=== PATIENT | female | born 1945 | race Caucasian/White ===

== ENCOUNTER 2017-07-09 05:46 | Day surgery (SDC) | payer MEDICARE, OTHER ==
[2017-07-08 14:53] VITALS: BMI 30.7
[2017-07-09 06:36] LABS: PTT 31.2 SEC (22.9-36.1); Prothrombin Time 13.1 SEC (12.0-14.7)
[2017-07-09] MEDS ORDERED: Lidocaine 1% (PF) 30 ML VIAL ONE (06:36)
[2017-07-09 06:57] LABS: Anion Gap 11 mmol/L (10-20); BUN (Urea Nitrogen) 20 mg/dL (9.8-20.1); Calc. Creatinine Clearance 72 mL/min (70-130); Calcium 9.6 mg/dL (7.8-10.44); Carbon Dioxide 26 mmol/L (23-31); Chloride 106 mmol/L (98-107); Estimated GFR-MDRD 55; Glucose 122 mg/dL (80-115); Sodium 139 mmol/L (136-145)
[2017-07-09 07:07] LABS: Cardiac Risk 4.5 (Less than 4.5)
[2017-07-09] MEDS ORDERED: Verapamil 5 MG/2 ML VIAL ONE (07:07)
[2017-07-09] MEDS ORDERED: Heparin 10,000 UNITS/1 ML VIAL ONE (07:07)
[2017-07-09] MEDS ORDERED: Nitroglycerin 100MG/250ML BOT 250 ML ONE (07:07)
[2017-07-09] MEDS ORDERED: Midazolam HCl 2 mg/2 ml Vial ONE (07:24)
[2017-07-09] MEDS ORDERED: Iopamidol 370 76% 100 ML VIAL ONE (11:05)
--- NOTE | 2017-08-04 11:12 | EKG ---
Test Reason : PREOP Blood Pressure : / mmHG Vent. Rate : 081 BPM Atrial Rate : 081 BPM P-R Int : 148 ms QRS Dur : 082 ms QT Int : 384 ms P-R-T Axes : 036 -02 -07 degrees QTc Int : 446 ms Normal sinus rhythm Moderate voltage criteria for LVH, may be normal variant Nonspecific ST and T wave abnormality Abnormal ECG When compared with ECG of 09-OCT-2016 10:30, No significant change was found Confirmed by JOHN LACEY M.D. ([id number]) on 08/04/2017 11:11:56 AM Referred By: ABHIJIT Confirmed By:JOHN LACEY M.D.
== END 2017-07-09 14:21 | disposition home or self-care (01) ==
LOC: CCL 05:46
PROVIDERS: ATTEND Internal Medicine Cardiovascular Disease
PROC: 4A023N7 Measurement of Cardiac Sampling and Pressure, Left Heart, Percutaneous Approach (ICD-10-PCS; principal; 2017-07-09)
PROC: B2151ZZ Fluoroscopy of Left Heart using Low Osmolar Contrast (ICD-10-PCS; 2017-07-09)
DX: I25.110 Atherosclerotic heart disease of native coronary artery with unstable angina pectoris (principal); E78.00 Pure hypercholesterolemia, unspecified; I10 Essential (primary) hypertension; E11.9 Type 2 diabetes mellitus without complications; E66.9 Obesity, unspecified; Z68.30 Body mass index [BMI] 30.0-30.9, adult; Z79.82 Long term (current) use of aspirin; Z79.02 Long term (current) use of antithrombotics/antiplatelets; Z79.899 Other long term (current) drug therapy; Z88.0 Allergy status to penicillin; Z88.5 Allergy status to narcotic agent
CPT/HCPCS: 80048; 80061; 85610; 85730; 93005; 93458; C1769; 36415; 93010; 99152; 99153; J1644; J2001; J2250

== ENCOUNTER 2017-07-21 11:00 | Outpatient (CLI) | payer MEDICARE ==
--- NOTE | 2017-07-21 11:56 | RAD ---
LUMBAR SPINE 2 VIEWS: HISTORY: A 72-year-old female with a history of low back pain since June 18, 2017. FINDINGS: AP and lateral views of the lumbar spine are performed. There are some generalized degenerative disk changes with disk-osteophytosis as well as some facet arthrosis. Surgical clips in the right upper quadrant, evidence of prior cholecystectomy. No evidence for acute fracture or significant malalignm ent. IMPRESSION: Lumbar spondylosis throughout the lumbar spine. POS: DEON
== END 2017-07-21 11:01 | disposition home or self-care (01) ==
LOC: SCSRAD 11:00
PROVIDERS: ATTEND Psychiatry & Neurology Neurology
DX: M54.12 Radiculopathy, cervical region (principal); M47.896 Other spondylosis, lumbar region
CPT/HCPCS: 72100

== ENCOUNTER 2018-09-04 16:09 | Outpatient (CLI) | payer MEDICARE, OTHER ==
[~2018-09-04 16:09] MED LIST: Gadobenate Dimeglumine 529 MG/1 ML (20ML VIAL) ONE
--- NOTE | 2018-09-07 11:13 | MRI ---
Pre and postcontrast enhanced MRI images brain HISTORY: Nausea blurred vision previous history of right-sided meningioma resection in 2000. Comparison made to previous exam from 09/09/2013. Pre and postcontrast enhanced MRI images brain performed. Patient's had a previous right-sided pterional craniotomy. Right temporal lobe encephalomalacia changes seen. Additional areas of right frontal and temporal lob e gliotic changes seen. These are stable and unchanged. No abnormal areas of intracranial enhancement seen. No evidence of areas of diffusion restriction seen. MRI appearance is stable. IMPRESSION: Previous old surgical changes. No evidence of tumor recurrence or newly developed masses seen.
== END 2018-09-04 16:10 | disposition home or self-care (01) ==
LOC: SCSMRI 16:09
PROVIDERS: ATTEND Family Medicine
DX: R51 Headache (principal)
CPT/HCPCS: 70553; 82565

== ENCOUNTER 2018-12-28 09:28 | Outpatient (CLI) | payer MEDICARE, OTHER ==
--- NOTE | 2018-12-28 09:44 | RAD ---
EXAM: Chest 2 views: HISTORY: Dyspnea COMPARISON: None. FINDINGS: There is a normal-sized cardiomediastinal silhouette. There is no evidence of consolidation, mass, or pleural effusion. Hardware is seen in the left humerus. IMPRESSION: No evidence of acute cardiopulmonary disease
== END 2018-12-28 09:29 | disposition home or self-care (01) ==
LOC: RAD 09:28
PROVIDERS: ATTEND Internal Medicine Critical Care Medicine
DX: R06.00 Dyspnea, unspecified (principal)
CPT/HCPCS: 71046

== ENCOUNTER 2019-03-22 11:25 | Observation (INO) | payer MEDICARE, OTHER ==
[2019-03-22 12:02] LABS: #Basophils 0.1 thou/uL (0.0-0.2); #Eosinphils 0.3 thou/uL (0.0-0.7); #Lymphocytes 2.5 thou/uL (1.20-3.40); #Monocytes 0.9 thou/uL (0.11-0.59); #Neutrophils 5.8 thou/uL (1.40-6.50); %Basophils 0.9 % (0.0-1.0); %Eosinophils 2.9 % (0.0-10.0); %Lymphocytes 26.6 % (21.0-51.0); %Monocytes 9.3 % (0.0-10.0); %Neutrophils 60.4 % (42.0-75.0); Hemoglobin 12.7 g/dL (12.0-16.0); Mean Corpuscular HGB CONC 33.8 g/dL (32.0-36.0); Mean Corpuscular Hemoglobin 31.3 pg (27.0-31.0); Mean Corpuscular Volume 92.7 fL (78.0-98.0); Platelet Count 354 thou/uL (130-400); RBC Distribution Width 13.7 % (11.5-14.5); Red Blood Cell (RBC) Count 4.06 mill/uL (4.20-5.40); White Blood Cell (WBC) Count 9.5 thou/uL (4.8-10.8)
--- NOTE | 2019-03-22 12:16 | RAD ---
Chest AP view INDICATION: Chest pain COMPARISON: December 28, 2018 FINDINGS: Lungs:The lungs are clear Cardiac silhouette:Stable cardiomegaly Pulmonary vasculature:Normal Pleural spaces:No pleural effusion or pneumothorax is demonstrated. Upper abdomen:No abnormality seen. Osseous structures: There is partial visualization of a plate and screw construct fixating the proxim al left humerus. This was partially visualized on the comparison examination. No acute osseous abnormality is demonstrated. Additional findings:None. IMPRESSION: No acute cardiopulmonary abnormality. Stable cardiomegaly.
[2019-03-22] MEDS ORDERED: Nitroglycerin 2% Ointment 1 INCH/1 GM Packet ONE (12:17)
[2019-03-22] MEDS ORDERED: Aspirin Chewable 81 MG TAB ONE (12:17)
[2019-03-22 12:37] LABS: ALT (SGPT) 14 U/L (8-55); AST (SGOT) 15 U/L (5-34); Albumin 4.3 g/dL (3.4-4.8); Alkaline Phosphatase 122 U/L (40-110); Anion Gap 13 mmol/L (10-20); BUN (Urea Nitrogen) 22 mg/dL (9.8-20.1); Bilirubin, Total 0.4 mg/dL (0.2-1.2); CK (CPK) 41 U/L (29-168); Calc. Creatinine Clearance 0 mL/min (70-130); Calcium 9.4 mg/dL (7.8-10.44); Carbon Dioxide 25 mmol/L (23-31); Chloride 106 mmol/L (98-107); Estimated GFR-MDRD 59; Globulin 2.3 g/dL (2.4-3.5); Glucose 133 mg/dL (83-110); Lipase 24 U/L (8-78); Potassium 3.9 mmol/L (3.5-5.1); Protein, Total 6.6 g/dL (6.0-8.3); Sodium 140 mmol/L (136-145)
[2019-03-22] MEDS ORDERED: Nitroglycerin 2% Ointment 1 INCH/1 GM Packet TOP PRN (13:00)
[2019-03-22 15:34] LABS: Troponin I Less than 0.010 ng/mL (< 0.028)
[2019-03-22] MEDS ORDERED: Acetaminophen 650 MG Suppository PR PRN (16:00)
[2019-03-22] MEDS ORDERED: Dextrose 50% Abboject 50 ML SYRINGE SLOW IVP PRN (16:05)
[2019-03-22] MEDS ORDERED: Dextrose 5% in Water 1,000 ML IV PRN (16:05)
[2019-03-22] MEDS ORDERED: HumaLOG 300 UNITS/3 ML VIAL SC PRN ×3 (16:05→16:12)
--- NOTE | 2019-03-22 17:01 | HP ---
TIME OF ASSESSMENT: 1500 hours. CHIEF COMPLAINT: Chest pain. HISTORY OF PRESENT ILLNESS: Ms. Joyner is a very pleasant 74-year-old woman with a known history of coronary artery disease, who has had an AZ in the past with 2 stents placed. The patient also has a history of hypertension and diabetes mellitus. She is under the care of Dr. Starr and states that she recently underwent a stress test in the last 2 to 3 months, which she was told that it was abnormal. She states that Dr. Starr did not recommend catheterization as he felt that her complaints were GI related. The patient underwent an endoscopy by Dr. Gavin recently and was told she had a hiatal hernia as well as gastritis. There was concern for gastroparesis. Therefore, a gastric emptying study was scheduled for later this week. The patient states that the pain she experienced this morning was very different from any pain she has had in the past and different from the pain she had with her previous AZ. She reports having a busy morning washing and cutting her hair. At approximately 9 a.m., she sat on the kitchen to check her glucose prior to eating and it was elevated at 146. She noted a stabbing substernal pain. She states she had six more episodes of stabbing pain a couple of minutes apart, each one getting progressively worse in terms of severity. She states it was 10/10 that then prompted her to come into the emergency department. She reports taking nitroglycerin at home, which immediately relieved her pain. She did have recurring pain while she was waiting to be seen. She has now been pain-free for the last 2 hours. In the emergency department, she had an EKG done, which showed a heart rate of 85, normal sinus rhythm with nonspecific ST changes and T-wave changes. Apparently, it had findings consistent with left ventricular hypertrophy. A chest x-ray was done showing no acute cardiopulmonary abnormality. She was noted to have stable cardiomegaly. Laboratory studies done showed normal full blood count. She had a slightly elevated BUN of 22, creatinine of 0.94, and GFR of 59. LFTs unremarkable and lipase normal. CK was 41. Troponin negative x2 and BNP normal at 50.8. She was given 243 mg of aspirin and 1 inch of nitroglycerin paste. In retrospect, the patient recalls having some issues with her blood pressure over the weekend, which was 180/100s. She thought that she might require adjustment in her antihypertensives and therefore made an appointment with her primary care physician. Today, her blood pressure has been within the usual range. At this present time, she denies having any pain and feels well in herself back to baseline. REVIEW OF SYSTEMS: The patient denies having any associated nausea or vomiting. No shortness of breath. Denies having any cough or hemoptysis, but states that she has had some slight postnasal drip of green phlegm. Denies having any recent fevers, chills, or sweats. She states her pain was nonradiating. She denies any lower leg swelling or edema. No indigestion. No abdominal pain. She reports having normal bowel movements and no urinary symptoms. PAST MEDICAL HISTORY: 1. Hypertension. 2. Coronary artery disease. 3. GERD. 4. Type 2 diabetes mellitus. 5. Asthma. 6. History of kidney stones. 7. Peripheral vascular disease. PAST SURGICAL HISTORY: 1. Appendectomy. 2. Cholecystectomy. 3. Craniotomy. 4. Hysterectomy. 5. Oophorectomy. 6. Bilateral knee surgery. 7. Tonsillectomy. 8. Coronary artery stents x2. SOCIAL HISTORY: The patient lives with her . Denies any history of tobacco use. No alcohol consumption or illicit drug use. ALLERGIES: 1. AUDIE INHIBITORS. 2. FENTANYL. 3. MORPHINE. CURRENT MEDICATIONS: 1. Gabapentin. 2. Metformin. 3. Bystolic. 4. Zetia. 5. Aspirin. 6. Singulair. 7. Losartan. 8. Protonix. 9. Synthroid. 10. Symbicort. 11. Albuterol. PHYSICAL EXAMINATION: GENERAL: The patient appears well developed, well nourished, is in no acute distress. VITAL SIGNS: Temperature 98.6, pulse 64, blood pressure 143/74, respirations 17, O2 saturation 94% on room air. HEENT: Normocephalic and atraumatic. Pupils are equal, round, and reactive to light. Sclerae are without icterus. Oropharynx is clear. NECK: Supple without lymphadenopathy. LUNGS: Clear to auscultation bilaterally without any wheezes, rales, or rhonchi. CARDIAC: Regular rate and rhythm without audible murmurs, rubs, or gallops. No reproducible pain with palpation of the chest wall. ABDOMEN: Soft, nontender, and nondistended. Normoactive bowel sounds present. EXTREMITIES: No lower leg swelling or edema. Peripheral pulses are normal. SKIN: Warm and dry. NEUROLOGIC: Alert and oriented x3. No neuro deficits on exam. INVESTIGATIONS: As mentioned above in HPI. IMPRESSION AND PLAN: Ms. Joyner is a pleasant 74-year-old woman, who is being admitted for management of the followin. Acute coronary syndrome rule out. The patient with central stabbing chest pain started at 9 a.m., relieved immediately once she took nitroglycerin. Per the patient, she had a recent abnormal stress test. She states that she has had an echocardiogram recently, but the last one follows from 2014, at which time she had an ejection fraction of 60% to 65% with normal systolic function. There was grade 1/3 diastolic dysfunction and mild left atrial enlargement, moderate mitral regurgitation and mild tricuspid regurgitation. Consultation has been placed to Dr. Starr, which the patient is requested. Apparently, she was told a catheterization was not necessary as it was felt her pain was related to gastrointestinal issues. We will continue to trend troponin. We will add a magnesium and a lipid panel. 2. Hypertension. Monitor blood pressure and resume home medications once verified. 3. Diabetes mellitus. Monitor blood glucose and initiate insulin sliding scale. 4. Hyperlipidemia. Resume home medications once verified. 5. Gastroesophageal reflux disease. Resume home medications once verified. 6. Deep venous thrombosis prophylaxis with mechanical sequential compression devices. 7. Code status, full. Her surrogate decision maker is her , Mehrdad Joyner. The patient's case was discussed with Dr. Scales, who agrees with plan of care as described above. Job ID: [id number]
[2019-03-22 17:19] VITALS: BMI 30.7
[2019-03-22 17:48] LABS: Bacteria/HPF None Seen HPF (None Seen); Bilirubin Negative (Negative); Blood, Urine Negative (Negative); Clarity Clear (Clear); Glucose, Urine (Dipstick) Normal (Negative); Leukocyte Negative Leu/uL (Negative); Nitrite Negative (Negative); Protein, Urine (Dipstick) Negative (Neg-Trace); RBC/HPF 0-3 HPF (0-3); Squamous Epithelial 0-3 HPF (0-3); Urobilinogen Normal mg/dL (Less than 2); WBC/HPF 0-3 HPF (0-3)
[2019-03-22 17:49] LABS: Urine Culture Reflex No No
[2019-03-22 18:18] LABS: Troponin I Less than 0.010 ng/mL (< 0.028)
[2019-03-22] MEDS ORDERED: Montelukast Sodium 10 mg Tablet PO PRN (20:01)
[2019-03-22] MEDS: Nebivolol HCl 5 MG TAB PO SCH (20:47)
[2019-03-22] MEDS: Gabapentin 300 MG CAP PO SCH (20:47)
[2019-03-22] MEDS ORDERED: Losartan 25 MG TAB PO SCH (21:00)
[2019-03-22] MEDS ORDERED: Famotidine/PF 20 mg/2ml Vial SLOW IVP SCH (21:00)
[2019-03-22] MEDS: Sodium Chloride 0.9% 1,000 ML IV SCH (23:15)
[2019-03-23] MEDS: Levothyroxine Sodium 50 MCG TAB PO SCH (04:46)
[2019-03-23 04:53] LABS: #Basophils 0.1 thou/uL (0.0-0.2); #Eosinphils 0.4 thou/uL (0.0-0.7); #Lymphocytes 2.5 thou/uL (1.20-3.40); #Monocytes 1.2 thou/uL (0.11-0.59); #Neutrophils 5.8 thou/uL (1.40-6.50); %Basophils 0.6 % (0.0-1.0); %Eosinophils 3.9 % (0.0-10.0); %Lymphocytes 25.1 % (21.0-51.0); %Neutrophils 58.4 % (42.0-75.0); Hemoglobin 10.5 g/dL (12.0-16.0); Mean Corpuscular HGB CONC 33.9 g/dL (32.0-36.0); Mean Corpuscular Hemoglobin 31.4 pg (27.0-31.0); Mean Corpuscular Volume 92.4 fL (78.0-98.0); Mean Platelet Volume 8.1 fL (7.4-10.4); Platelet Count 312 thou/uL (130-400); RBC Distribution Width 13.8 % (11.5-14.5); Red Blood Cell (RBC) Count 3.35 mill/uL (4.20-5.40); White Blood Cell (WBC) Count 9.9 thou/uL (4.8-10.8)
[2019-03-23 05:15] LABS: Anion Gap 8 mmol/L (10-20); BUN (Urea Nitrogen) 18 mg/dL (9.8-20.1); Calc. Creatinine Clearance 86 mL/min (70-130); Calcium 8.8 mg/dL (7.8-10.44); Carbon Dioxide 29 mmol/L (23-31); Cardiac Risk 4.7 (Less than 4.5); Chloride 108 mmol/L (98-107); Cholesterol 164 mg/dl (< 200 Desired); Estimated GFR-MDRD 70; Glucose 109 mg/dL (83-110); HDL Cholesterol 35 mg/dL (>60 Neg Risk); LDL Cholesterol, Calculated 99 mg/dL; Potassium 4.2 mmol/L (3.5-5.1); Sodium 141 mmol/L (136-145); Triglycerides 148 mg/dL (Less than 150)
[2019-03-23] MEDS: Sodium Chloride 0.9% 1,000 ML IV SCH (09:15)
[2019-03-23] MEDS ORDERED: Iopamidol 370 76% 100 ML VIAL ONE (09:47)
[2019-03-23] MEDS: Acetaminophen 325 MG TAB PO PRN (10:21)
[2019-03-23] MEDS: Ezetimibe 10 MG TAB PO SCH (10:24)
[2019-03-23] MEDS ORDERED: Losartan 25 MG TAB PO SCH (10:45)
[2019-03-23] MEDS ORDERED: Nitroglycerin 2% Ointment 1 INCH/1 GM Packet TOP SCH (10:45)
--- NOTE | 2019-03-23 13:41 | PDOC.HOSPP ---
- Subjective Subjective: Pt reports that she is feeling better than she did this morning. Denies currently having any chest pain. NPO and receiving IVF at 100 mL/hr in preparation for cardiac catheterization this afternoon. - Objective Vital Signs & Weight: Vital Signs (12 hours) Temp Pulse Resp BP Pulse Ox 03/23/19 13:00 98.2 F 62 15 155/74 H 96 03/23/19 12:00 98.6 F 62 18 97 03/23/19 08:00 98.3 F 69 18 151/70 H 95 03/23/19 04:28 97.8 F 68 14 101/53 L 93 L Weight Weight 190 lb 3.2 oz I&O: 03/22/19 03/23/19 03/24/19 06:59 06:59 06:59 Intake Total 1470 340 Output Total 1000 Balance 470 340 Result Diagrams: 03/23/19 04:29 03/23/19 04:29 Additional Labs: Accuchecks 03/23/19 03/22/19 03/22/19 11:40 19:49 18:50 POC Glucose 110 125 H 94 Hospitalist ROS - Medication Medications: Active Medications Generic Name Dose Route Start Last Admin Trade Name Freq PRN Reason Stop Dose Admin Acetaminophen 650 mg 03/22/19 16:00 03/23/19 10:21 Tylenol PO 650 mg Q4H PRN Administration Headache/Fever/Mild Pain (1-3) Ezetimibe 10 mg 03/23/19 09:00 03/23/19 10:24 Zetia PO Not Given DAILY WOOD Gabapentin 600 mg 03/22/19 21:00 03/22/19 20:47 Neurontin PO 600 mg HS WOOD Administration Sodium Chloride 1,000 mls @ 100 mls/hr 03/23/19 00:01 03/23/19 09:15 Normal Saline 0.9% IV 1,000 mls .Q10H WOOD Administration Levothyroxine Sodium 50 mcg 03/23/19 06:00 03/23/19 04:46 Synthroid PO 50 mcg 0600 WOOD Administration Nebivolol 5 mg 03/22/19 21:00 03/22/19 20:47 Bystolic PO 5 mg HS WOOD Administration Pantoprazole Sodium 40 mg 03/22/19 21:00 03/23/19 10:25 Protonix PO Not Given BID WODO Ranolazine 500 mg 03/22/19 21:00 03/23/19 10:26 Ranexa PO 500 mg BID WOOD Administration - Exam General Appearance: NAD, awake alert Heart: RRR, no murmur, no gallops, no rubs Respiratory: CTAB, no wheezes, no rales, no ronchi, normal chest expansion, no tachypnea Gastrointestinal: soft, non-tender, non-distended, normal bowel sounds, no palpable masses, no hepatomegaly, no splenomegaly, no bruit Extremities: no cyanosis, no clubbing Extremities - other findings: trace lower extremity edema Skin: normal turgor, no lesions, no rashes Musculoskeletal: normal tone Psychiatric: normal affect, normal behavior, A&O x 3 Hosp A/P (1) Chest pain Code(s): R07.9 - CHEST PAIN, UNSPECIFIED Status: Acute (2) GERD (gastroesophageal reflux disease) Code(s): K21.9 - GASTRO-ESOPHAGEAL REFLUX DISEASE WITHOUT ESOPHAGITIS Status: Acute (3) CAD (coronary artery disease) Code(s): I25.10 - ATHSCL HEART DISEASE OF [place] CORONARY ARTERY W/O ANG PCTRS Status: Chronic Qualifiers: Coronary Disease-Associated Artery/Lesion type: [place] artery Habematolel vs. transplanted heart: [place] heart Associated angina: without angina Qualified Code(s): I25.10 - Atherosclerotic heart disease of [place] coronary artery without angina pectoris (4) HLD (hyperlipidemia) Code(s): E78.5 - HYPERLIPIDEMIA, UNSPECIFIED Status: Chronic Qualifiers: Hyperlipidemia type: unspecified Qualified Code(s): E78.5 - Hyperlipidemia , unspecified (5) HTN (hypertension) Code(s): I10 - ESSENTIAL (PRIMARY) HYPERTENSION Status: Chronic Qualifiers: Hypertension type: essential hypertension Qualified Code(s): I10 - Essential (primary) hypertension (6) Hypothyroidism Code(s): E03.9 - HYPOTHYROIDISM, UNSPECIFIED Status: Chronic Qualifiers: Hypothyroidism type: unspecified Qualified Code(s): E03.9 - Hypothyroidism , unspecified - Plan Chest pain: Pt to undergo cardiac catheterization later today. Receiving hydration with IVF at 100 mL/hr in preparation for dye load. Will monitor renal function with AM labs. HTN: Continue home losartan and bystolic. She has requested nitropaste and does not want SLNTG. Believes her CP has increased when BP increased. Continue home thyroid meds. Continue Zetia.
[2019-03-23] MEDS ORDERED: Heparin (Artline) 1,000 ML ONE (14:32)
[2019-03-23] MEDS ORDERED: Fentanyl 100 MCG/2 ML VIAL ONE (14:58)
[2019-03-23] MEDS ORDERED: Midazolam HCl 2 mg/2 ml Vial ONE (14:59)
[2019-03-23] MEDS ORDERED: Heparin 10,000 UNITS/1 ML VIAL ONE (15:51)
[2019-03-23] MEDS ORDERED: Heparin (Artline) 500 ML ONE (15:54)
[2019-03-23] MEDS ORDERED: Clopidogrel Bisulfate 300 MG TAB ONE (15:54)
[2019-03-23] MEDS ORDERED: Nitroglycerin 0.4 MG TAB (25 Tab Bottle) SL PRN (16:09)
[2019-03-23] MEDS ORDERED: Sodium Chloride 0.9% 500 ML IV SCH (16:15)
--- NOTE | 2019-03-23 17:02 | CON ---
DATE OF CONSULTATION: 03/23/2019 REASON FOR CONSULTATION: Chest pain. PRIMARY LOGGING ASSISTANT: Dr. Eusebio Starr. HISTORY OF PRESENT ILLNESS: Ms. Joyner is a very pleasant 74-year-old white female, who comes to the hospital for chest pain. She has had several stents placed in the past, mostly in her LAD and first diagonal in a bifurcating fashion. She had to be recath'd several times because of same reason. Last time was about a year and a half ago, she had chest pain. The only problem was severely stenosed ostial diagonal; however, she was treated medically at that time as this has already been re-ballooned and re-stented. She is here as she continues to have chest pain despite treatment of her GI tract, so Cardiology has been consulted for further evaluation and care. Ms. Joyner continues to feel chest pain, which is basically her angina when she does physical activity. Better with rest, better with nitroglycerin. PAST MEDICAL HISTORY: 1. Hypertension. 2. Coronary artery disease. 3. GERD. 4. Type-2 diabetes. 5. Asthma. 6. Kidney stones in the past. 7. Peripheral vascular disease. PAST SURGICAL HISTORY: 1. Appendectomy. 2. Cholecystectomy. 3. Craniotomy. 4. Hysterectomy. 5. Oophorectomy. 6. Bilateral knee surgeries. 7. Tonsillectomy. 8. Stents in the past as well. SOCIAL HISTORY: No alcohol, tobacco, or drugs. ALLERGIES: 1. AUDIE INHIBITORS. 2. FENTANYL MADE HER STOP BREATHING AND CODING. THIS WAS IN THE POSTOPERATIVE SETTING AND SHE RECEIVED VERY HIGH DOSES OF FENTANYL NOT A REAL ALLERGY. 3. MORPHINE. 4. ADVERSE REACTION TO STATINS. OUTPATIENT MEDICATIONS: Include; 1. Sublingual nitroglycerin 0.6 p.r.n. 2. Ranolazine 500 mg b.i.d. 3. Singulair. 4. Synthroid 50 mcg a day. 5. Pantoprazole 40 mg b.i.d. 6. Losartan 25 mg at bedtime. 7. Zetia 10 mg a day. 8. Aspirin 81 a day. 9. . 10. Gabapentin 600 mg at bedtime. REVIEW OF SYSTEMS: A 12-point review of systems was done and was all negative unless stated in the history of present illness. FAMILY HISTORY: Noncontributory. PHYSICAL EXAMINATION: VITAL SIGNS: Temperature 98.2, pulse 62, respiratory rate 15, saturating 96% on room air, blood pressure 155/74. GENERAL: Awake, alert, oriented x3. No distress. HEENT: Normocephalic, atraumatic. NECK: Supple. LUNGS: Clear. CARDIOVASCULAR: S1, S2. No S3 or S4. No murmurs. ABDOMEN: Soft. Positive bowel sounds. EXTREMITIES: No edema. SKIN: Warm and dry. LABORATORY DATA: Laboratory work was reviewed. Troponins are negative. CBC and CMP are stable. ASSESSMENT AND PLAN: 1. Chronic stable angina, worsening now. 2. Coronary artery disease. 3. Gastroesophageal reflux disease. PLAN: 1. We will do a repeat heart catheterization for re-evaluation of her coronary anatomy. More than likely she has failed medical therapy and will need balloon angioplasty or stenting of that ostial diagonal. We will also evaluate the LAD. If her LAD is severely stenosed, we will recommend bypass surgery with LOGAN to the LAD and vein graft to diagonal. If the LAD is not severely stenosed, we will try to just do balloon angioplasty of the ostium of the diagonal, which was the issue just last time she was cathed. 2. We have spoken at length with risks and benefits of the procedure. She has been through several times. She had minimal questions. She is eager to proceed. Thank you for letting us to participate in the care of your patient. Further recommendations per results of cardiac catheterization. Job ID: [id number] MTDD
[2019-03-23] MEDS ORDERED: hydrALAZINE 20 MG/ML VIAL SLOW IVP PRN (17:45)
[2019-03-23] MEDS ORDERED: Ondansetron PF 4 MG/2 ML Vial ONE (18:09)
[2019-03-23] MEDS ORDERED: Ondansetron PF 4 MG/2 ML Vial SLOW IVP SCH (20:15)
[2019-03-23] MEDS: Nebivolol HCl 5 MG TAB PO SCH (21:04)
[2019-03-23] MEDS: Gabapentin 300 MG CAP PO SCH (21:04)
[2019-03-24 04:25] LABS: #Basophils 0.1 thou/uL (0.0-0.2); #Eosinphils 0.3 thou/uL (0.0-0.7); #Lymphocytes 1.7 thou/uL (1.20-3.40); %Eosinophils 3.3 % (0.0-10.0); %Lymphocytes 18.3 % (21.0-51.0); %Neutrophils 66.4 % (42.0-75.0); Mean Corpuscular Hemoglobin 29.6 pg (27.0-31.0); Mean Corpuscular Volume 92.5 fL (78.0-98.0); Mean Platelet Volume 8.1 fL (7.4-10.4); Platelet Count 334 thou/uL (130-400); RBC Distribution Width 13.8 % (11.5-14.5); Red Blood Cell (RBC) Count 3.71 mill/uL (4.20-5.40)
[2019-03-24 04:45] LABS: ALT (SGPT) 11 U/L (8-55); AST (SGOT) 14 U/L (5-34); Albumin 3.6 g/dL (3.4-4.8); Alkaline Phosphatase 111 U/L (40-110); Anion Gap 9 mmol/L (10-20); BUN (Urea Nitrogen) 16 mg/dL (9.8-20.1); Bilirubin, Total 0.3 mg/dL (0.2-1.2); Calc. Creatinine Clearance 79 mL/min (70-130); Calcium 8.9 mg/dL (7.8-10.44); Carbon Dioxide 29 mmol/L (23-31); Chloride 107 mmol/L (98-107); Estimated GFR-MDRD 63; Globulin 2.4 g/dL (2.4-3.5); Glucose 127 mg/dL (83-110); Potassium 3.8 mmol/L (3.5-5.1); Sodium 141 mmol/L (136-145)
[2019-03-24] MEDS: Levothyroxine Sodium 50 MCG TAB PO SCH (05:29)
[2019-03-24] MEDS: Ezetimibe 10 MG TAB PO SCH (08:11)
[2019-03-24] MEDS ORDERED: Losartan 25 MG TAB PO SCH (09:00)
[2019-03-24] MEDS ORDERED: Aspirin Chewable 81 MG TAB PO SCH (09:00)
[2019-03-24] MEDS ORDERED: Clopidogrel Bisulfate 75 MG TAB PO SCH (09:00)
[2019-03-24] MEDS: Acetaminophen 325 MG TAB PO PRN (12:19)
[2019-03-24 12:49] VITALS: TEMP 98.1
[2019-03-24 13:25] VITALS: BP 120/59
[2019-03-24] MEDS ORDERED: Ondansetron PF 4 MG/2 ML Vial SLOW IVP PRN (13:35)
--- NOTE | 2019-03-24 16:01 | PDOC.CPN ---
- Subjective Date: 03/24/19 Time: 12:30 Interval history: her chest pain is significantly improved. She has been able to walk around without symptoms. - Review of Systems General: denies: fever/chills, weight/appetite/sleep changes, night sweats, fatigue Respiratory: denies: cough, congestion, shortness of breath, exercise intolerance Cardiovascular: denies: chest pain, palpitation, edema, paroxysmal nocturnal dyspnea, orthopnea Gastrointestinal: denies: nausea, vomiting, diarrhea, constipation, abd pain, GI bleeding Musculoskeletal: denies: pain, tenderness, stiffness, swelling, arthritis/ arthralgias Neurological: denies: numbness, syncope, seizure, weakness - Objective Allergies/Adverse Reactions: Allergies Allergy/AdvReac Type Severity Reaction Status Date / Time morphine Allergy Intermediate ITCHING Verified 03/22/19 17:09 AUDIE Inhibitors Allergy COUGH Verified 03/22/19 17:09 fentanyl AdvReac Severe GIVEN A Verified 03/22/19 17:09 HIGH DOSE AND HEART STOPPPED Vital Signs & Weight: Vital Signs Temp Pulse Pulse Pulse Resp BP BP 03/24/19 13:00 70 120/59 L 03/24/19 12:20 75 16 126/57 L 03/24/19 11:47 98.1 F 74 16 03/24/19 10:50 75 76 100/55 L 03/24/19 07:48 98.0 F 61 16 03/24/19 04:00 97.7 F 75 20 BP BP Pulse Ox Pulse Ox Pulse Ox 03/24/19 13:00 03/24/19 12:20 94 L 03/24/19 11:47 126/60 92 L 03/24/19 10:50 120/59 L 92 L 96 03/24/19 07:48 124/63 96 03/24/19 04:00 121/63 97 Admit Weight 190 lb 3.2 oz Weight 190 lb 3.2 oz - Physical Exam General: alert & oriented x3 HEENT: mucus membranes moist Neck: supple neck Cardiac: regular rate and rhythm Lungs: clear to auscultation Neuro: grossly intact Abdomen: active bowel sounds Extremities: no edema Skin: clear Musculoskeletal: no pain - Labs Result Diagrams: 03/24/19 04:12 03/24/19 04:12 Troponin/CKMB Troponin I Less than 0.010 ng/mL (< 0.028) 03/22/19 17:47 - Telemetry Sinus rhythms and dysrhythmias: sinus rhythm - Assessment/Plan Assessment/Plan: 1. Chronic stable angina 2. CAD 3. S/P balloon angioplasty to large ostial D1 with good results. PLAN; - May discharge home - Plavix/ASA - Intolerant to statins. Will do lipid profile in 1 month and if LDL not at goal will add Repatha/Praluent. - Follow up in one month.
--- NOTE | 2019-03-25 12:45 | DIS ---
DATE OF ADMISSION: 03/22/2019 DATE OF DISCHARGE: 03/24/2019 DISCHARGE DIAGNOSES: 1. Angina. 2. Coronary artery disease. 3. Hypertension. 4. Hyperlipidemia. 5. Hypothyroidism. 6. Gastroesophageal reflux disease. HISTORY OF PRESENT ILLNESS: This patient is a 74-year-old female, who presented to the hospital with chest pain. She apparently had had a recent abnormal stress test. EKG showed a heart rate of 85, normal sinus rhythm with nonspecific ST and T-wave changes. Troponin was negative x2. BNP was normal. HOSPITAL COURSE: The patient was placed in observation status. Given her history of abnormal stress test, she was seen in consultations straight away by Dr. Starr, who felt she wanted heart catheterization. The patient was hydrated to tolerate the subsequent dye load. He then took the patient to the distillery laborer, where she was found to have coronary disease. He angioplastied a large ostial D1 with good results. The patient subsequently did well. She was able to get up and ambulate, and all of her pain symptoms had fully resolved. Therefore, she was felt to be in stable condition for discharge home. PHYSICAL EXAMINATION: VITAL SIGNS: On the day of discharge, temperature is 98.1, pulse 70, BP is 120/59, respirations 16, and O2 saturation 94% on room air. GENERAL APPEARANCE: Age-appropriate female, in no distress. Awake, alert, oriented, pleasant, cooperative. HEART: Regular rate and rhythm without murmurs, gallops, or rubs. LUNGS: Clear to auscultation bilaterally. ABDOMEN: Soft, nontender, and nondistended. Positive bowel sounds. EXTREMITIES: No edema. DISPOSITION: The patient is discharged to home. DIET: She is to continue with a heart healthy diet. ACTIVITY: As tolerated. DISCHARGE MEDICATIONS: She will be on: 1. Aspirin 81 mg p.o. daily. 2. Plavix 75 mg daily. 3. Levothyroxine 50 mcg daily. 4. Bystolic 5 mg at bedtime. 5. Pantoprazole 40 mg b.i.d. 6. Zetia 10 mg daily. 7. Gabapentin 600 mg at bedtime. 8. Losartan 25 mg at bedtime. 9. Nitroglycerin p.r.n. 10. Ranexa 500 mg b.i.d. 11. Singulair 10 mg daily p.r.n. FOLLOWUP: She is to follow up with [facility]. She is to follow up with Dr. Starr and with the PCP of her choice. She can return to the hospital at anytime should she have any need to do so. Job ID: [id number]
== END 2019-03-24 15:17 | disposition home or self-care (01) ==
LOC: ERS 11:25 → ERHOLD 13:16 → 2SW 17:03
PROVIDERS: ADMIT Internal Medicine; ATTEND Internal Medicine
PROC: 02703ZZ Dilation of Coronary Artery, One Artery, Percutaneous Approach (ICD-10-PCS; principal; 2019-03-23)
PROC: 4A023N7 Measurement of Cardiac Sampling and Pressure, Left Heart, Percutaneous Approach (ICD-10-PCS; 2019-03-23)
PROC: B2111ZZ Fluoroscopy of Multiple Coronary Arteries using Low Osmolar Contrast (ICD-10-PCS; 2019-03-23)
DX: I25.118 Atherosclerotic heart disease of native coronary artery with other forms of angina pectoris (principal); I25.2 Old myocardial infarction; I10 Essential (primary) hypertension; E11.9 Type 2 diabetes mellitus without complications; K21.9 Gastro-esophageal reflux disease without esophagitis; J45.909 Unspecified asthma, uncomplicated; E78.5 Hyperlipidemia, unspecified; E03.9 Hypothyroidism, unspecified; Z79.82 Long term (current) use of aspirin; Z79.899 Other long term (current) drug therapy; Z88.5 Allergy status to narcotic agent; Z88.8 Allergy status to other drugs, medicaments and biological substances
CPT/HCPCS: 71045; 80048; 80053 ×2; 80061; 81001; 82550; 82962 ×3; 83690; 83735; 83880; 84484 ×2; 85025 ×3; 85347 ×3; 92920; 93005 ×3; 93458; 93571; 93798; 94760; 96361 ×2; 96374; 96376; 97139; 99285; C1769 ×6; G0378 ×3; 36415; 36416; 93010; 99152; 99153; J0153; J1644; J2250; J2405; J3010; Q9967

== ENCOUNTER 2019-11-24 13:20 | Inpatient (IN) | payer MEDICARE, OTHER ==
[2019-11-24] MEDS ORDERED: Dextrose 50% Abboject 50 ML SYRINGE SLOW IVP PRN (20:12)
[2019-11-24] MEDS ORDERED: Dextrose 5% in Water 1,000 ML IV PRN (20:12)
[2019-11-24] MEDS ORDERED: Insulin Regular 300 UNITS/3 ML VIAL SC PRN (20:12)
[2019-11-24] MEDS ORDERED: Metoprolol Tartrate 5 MG/5 ML VIAL IVP PRN (20:14)
[2019-11-24] MEDS ORDERED: Nitroglycerin 0.4mg/Hour PATCH TD SCH (21:00)
[2019-11-24 21:31] LABS: Troponin I Less than 0.010 ng/mL (< 0.028)
--- NOTE | 2019-11-24 21:31 | HP ---
REASON FOR ADMISSION: Chest pain. HISTORY OF PRESENT ILLNESS: This is a 74-year-old female patient who is known to have coronary artery disease status post stenting in March 2019, has been doing well since then until September of this year she started having chest pain initially with exertion that progressed to occurring at rest. She describes the pain as sharp in nature, localized in the retrosternal area with radiation to her upper extremities and jaw. The quality of the pain is different than her previous chest pain before March. She also has shortness of breath and becomes flushed whenever she has the pain. The pain is relieved with nitroglycerin, but then recurs and sometimes she has a second episode back to the first one after the effect of the nitroglycerin wears off. She has been having the pain early in the morning and this morning at 1:30 a.m., she had an episode and another one at 9:00 a.m., which prompted her to go to [facility], subsequently transferred to us. The patient is currently on our telemetry floor, appears to be comfortable, in no acute distress. I did review her records and during her last admission, she had an abnormal stress test and subsequently underwent a cardiac catheterization with angioplasty to a large ostial D1 and has been recently started on Ranexa and dose has been adjusted and titrated up to her chest pain. PAST MEDICAL HISTORY: 1. Diabetes, type 2. 2. COPD. 3. Hypothyroidism. 4. GERD. 5. High cholesterol. 6. High blood pressure. 7. Peripheral neuropathy. 8. Herniated disk. 9. Status post bilateral total knee replacement. 10. Status post appendectomy. 11. Cholecystectomy. 12. Benign brain tumor post surgery twice. 13. Shoulder and arm fracture. ALLERGIES: TO MORPHINE AND FENTANYL. FAMILY HISTORY: Positive for premature coronary artery disease and father had heart attack at age 55. SOCIAL HISTORY: She does not smoke. Does not drink alcohol. REVIEW OF SYSTEMS: The patient has been having shortness of breath off and on and measures her oxygenation and does have decrease in her pulse ox every now and then. All other systems reviewed except the above mentioned, found to be negative. PHYSICAL EXAMINATION: GENERAL: Awake, alert, oriented, does not appear in distress. VITAL SIGNS: Her blood pressure is 177/79, heart rate 71, afebrile, and pulse ox above 90% on room air. HEENT: Head is nontraumatic and normocephalic. Pupils equal and reactive. Extraocular movements are intact. Nonicteric sclerae. Well injected conjunctivae. Oral mucosa normal. Nasal mucosa normal. NECK: Supple. No adenopathy. No murmur. Thyroid is not palpable. Trachea is midline. No supraclavicular lymphadenopathy. HEART: S1 and S2, regular. No murmur. No gallops. No friction rubs. No displacement of PMI. LUNGS: Clear to auscultation bilaterally. No wheezes, rhonchi, or crackles. ABDOMEN: Bowel sounds are positive. Nontender abdomen. No hepatosplenomegaly. EXTREMITIES: No lower extremity edema. No cyanosis. NEUROLOGIC: Cranial nerves 2 through 12 within normal limits. Normal motor function. Normal sensory function. Normal reflexes. LABORATORY DATA: Blood work shows sodium 141, potassium of 4.2, chloride 105, bicarb 25, glucose 133, BUN 16.3, creatinine 1. WBC 7.6, hemoglobin of 11.4, and platelets of 372. Troponin less than 0.01. EKG shows normal sinus rhythm, right bundle-branch block. Nonspecific ST-segment and T-wave changes as per my read. ASSESSMENT AND PLAN: This is a 74-year-old female patient who is known to have coronary artery disease, status post angioplasty in March 2019, has been having recurrent angina that progressed to unstable angina. She is released with nitroglycerin. Cardiac. The patient will be admitted to telemetry. We will recycle her cardiac enzymes. We will provide her with blood pressure control. I will start her on nitroglycerin patch and the resume her current antihypertensive agents as well as aspirin and Plavix, she did receive a full dose Lovenox at [facility]. We will keep her n.p.o. after midnight. Dr. Starr will see her tomorrow and decide whether to take her to the cardiac cath tomorrow or after tomorrow. Endocrinology. The patient is diabetic. We will stop her metformin. We will use insulin sliding scale and she has hypothyroidism. We will resume her levothyroxine. For deep venous thrombosis prophylaxis, she will be on SCDs. For her reflux, we will resume her PPI. For her chronic obstructive pulmonary disease, she will have DuoNeb on as needed basis. I did discuss with her code status and she wishes to be a full code. Job ID: [id number]
--- NOTE | 2019-11-25 07:21 | PDOC.HOSPP ---
- Subjective Encounter Date: 11/25/19 Encounter Time: 07:19 Subjective: no pain since admission, cant walk more than 50 ft due to leg pain - Objective Vital Signs & Weight: Vital Signs (12 hours) Temp Pulse Resp BP Pulse Ox 11/25/19 04:10 135/65 11/25/19 03:59 97.7 F 70 14 135/63 91 L 11/24/19 19:29 99.0 F 71 18 170/79 H 97 Weight Weight 192 lb I&O: 11/24/19 11/25/19 11/26/19 06:59 06:59 06:59 Intake Total 480 Balance 480 Additional Labs: Accuchecks 11/25/19 11/25/19 11/24/19 04:07 00:22 21:24 POC Glucose 140 H 149 H 106 Hospitalist ROS - Medication Medications: Active Medications Generic Name Dose Route Start Last Admin Trade Name Freq PRN Reason Stop Dose Admin Nitroglycerin 1 patch 11/24/19 21:00 11/24/19 21:44 Nitro-Dur 0.4mg/Hr Patch TD 1 patch HS WOOD Administration - Exam General Appearance: awake alert Neck: no JVD Heart: RRR, no murmur Respiratory: CTAB Gastrointestinal: soft, normal bowel sounds Extremities: no edema Hosp A/P (1) Chest pain Code(s): R07.9 - CHEST PAIN, UNSPECIFIED Status: Acute Qualifiers: Ischemic chest pain type: unspecified angina pectoris type (2) GERD (gastroesophageal reflux disease) Code(s): K21.9 - GASTRO-ESOPHAGEAL REFLUX DISEASE WITHOUT ESOPHAGITIS Status: Chronic Qualifiers: Esophagitis presence: esophagitis presence not specified Qualified Code(s) : K21.9 - Gastro-esophageal reflux disease without esophagitis (3) CAD (coronary artery disease) Code(s): I25.10 - ATHSCL HEART DISEASE OF [place] CORONARY ARTERY W/O ANG PCTRS Status: Chronic Qualifiers: Coronary Disease-Associated Artery/Lesion type: [place] artery [place] vs. transplanted heart: [place] heart Associated angina: without angina Qualified Code(s): I25.10 - Atherosclerotic heart disease of [place] coronary artery without angina pectoris (4) HLD (hyperlipidemia) Code(s): E78.5 - HYPERLIPIDEMIA, UNSPECIFIED Status: Chronic Qualifiers: Hyperlipidemia type: unspecified (5) HTN (hypertension) Code(s): I10 - ESSENTIAL (PRIMARY) HYPERTENSION Status: Chronic Qualifiers: Hypertension type: essential hypertension - Plan enzymes neg. no pain- proceed with stress test
[2019-11-25] MEDS ORDERED: Docusate 100 MG CAP PO PRN (07:24)
[2019-11-25] MEDS: Ezetimibe 10 MG TAB PO SCH (09:28)
[2019-11-25] MEDS: Aspirin 81 mg Enteric Coated Tablet PO SCH (09:28)
[2019-11-25] MEDS: Clopidogrel Bisulfate 75 MG TAB PO SCH (09:29)
[2019-11-25] MEDS ORDERED: Levothyroxine Sodium 50 MCG TAB PO SCH (10:30)
[2019-11-25] MEDS: Nitroglycerin 0.4 MG TAB (25 Tab Bottle) SL PRN (15:44)
[2019-11-25] MEDS: Ondansetron ODT 4 MG TAB PO PRN (18:11)
--- NOTE | 2019-11-25 18:32 | CON ---
DATE OF CONSULTATION: 11/25/2019 REASON FOR CONSULTATION: Chest pain. PRIMARY HUMAN SERVICES CASE MANAGER: Eusebio Starr MD HISTORY OF PRESENT ILLNESS: Ms. Joyner is a very pleasant 74-year-old white female, who comes to the hospital for chest pain. She has a known history of coronary artery disease. She has had stents in a bifurcating fashion in the LAD and the first diagonal. She was in the hospital about 8 to 9 months ago back in March of last year, and she underwent heart catheterization that showed a severe ostial diagonal disease, which received balloon angioplasty. She did a lot better after that. Her symptoms which are exactly same as this time around completely resolved. She had balloon angioplasty of both the LAD and the diagonal. About 4 months later, she started having chest pains. We up-titrated her nitrates as well as other medications, and today, she comes in as the symptoms are a lot worse. PAST MEDICAL HISTORY: 1. Hypertension. 2. Coronary artery disease as above. 3. GERD. 4. Type 2 diabetes. 5. Bronchial asthma. 6. Renal stones. 7. Peripheral vascular disease. PAST SURGICAL HISTORY: 1. Appendectomy. 2. Cholecystectomy. 3. Craniotomy. 4. Hysterectomy. 5. Oophorectomy. 6. Bilateral knee surgeries. 7. Tonsillectomy. 8. Bifurcating stents to the LAD and diagonal. SOCIAL HISTORY: No alcohol, tobacco, or drugs. ALLERGIES: 1. AUDIE INHIBITORS. 2. FENTANYL MADE HER TO STOP BREATHING AND HAVE A CARDIAC ARREST IN THE POSTOPERATIVE STATE. 3. MORPHINE. 4. ADVERSE REACTION TO STATINS. OUTPATIENT MEDICATIONS: 1. Levothyroxine 50 mcg a day. 2. Losartan 25 mg a day. 3. Zetia 10 mg a day. 4. Plavix 75 mg a day. 5. Aspirin 81 a day. 6. Pantoprazole 40 mg b.i.d. 7. Sublingual nitroglycerin 0.6 p.r.n. 8. Ranolazine 500 mg b.i.d. REVIEW OF SYSTEMS: A 12-point review of systems was done and was all negative unless stated in the history of present illness. PHYSICAL EXAMINATION: VITAL SIGNS: Temperature 97.8, pulse 82, respiratory rate 20, saturating 94% on room air, blood pressure 127/74. GENERAL: Awake, alert, and oriented x3, in no distress. HEENT: Normocephalic and atraumatic. NECK: Supple. LUNGS: Clear. CARDIOVASCULAR: S1 and S2. No S3 or S4. No murmurs. No rubs. ABDOMEN: Soft. Positive bowel sounds. EXTREMITIES: No edema. SKIN: Warm and dry. LABORATORY DATA: Laboratory work was reviewed. Troponin is negative x2. EKG was reviewed. ASSESSMENT: 1. Chronic stable angina, now unstable angina. 2. Coronary artery disease as above. PLAN: 1. Long discussion about how to proceed. At this point, she is having enough symptoms, and she would like to have a repeat heart catheterization. She did get a lot of relief with balloon angioplasty of the ostium of the diagonal and the left anterior descending about 9 to 10 months ago. We will plan on repeating a heart catheterization tomorrow. 2. We spoke at length about the risks and benefits of the procedure. Risks included, but not limited to stroke, myocardial infarction, , bleeding, need for blood transfusion, limb loss, organ loss. The patient understands, verbalizes understanding of this, and agrees to proceed. 3. If the ostium of the diagonal is stenosed, we were more than likely going to proceed with stenting of that area. This would be high risk, and the patient is aware of this. If her issue is both the left anterior descending and the diagonal, she will require open heart surgery for a bypass and a left internal mammary artery to the left anterior descending and a vein to a diagonal. If her coronaries are normal, we will have to do further evaluation to see where her chest pain may be coming from. Further recommendations per results of coronary angiogram. Job ID: [id number]
[2019-11-25] MEDS: Losartan 25 MG TAB PO SCH (20:35)
[2019-11-26] MEDS ORDERED: Sodium Chloride 0.9% 500 ML IV SCH (00:01)
[2019-11-26] MEDS: Ezetimibe 10 MG TAB PO SCH (05:26)
[2019-11-26] MEDS: Levothyroxine Sodium 50 MCG TAB PO SCH (05:26)
[2019-11-26] MEDS: Aspirin 81 mg Enteric Coated Tablet PO SCH (05:27)
[2019-11-26] MEDS: Clopidogrel Bisulfate 75 MG TAB PO SCH (05:27)
[2019-11-26 07:17] LABS: #Basophils 0.1 thou/uL (0.0-0.2); #Eosinphils 0.2 thou/uL (0.0-0.7); #Monocytes 0.8 thou/uL (0.11-0.59); #Neutrophils 4.6 thou/uL (1.40-6.50); %Basophils 0.8 % (0.0-1.0); %Eosinophils 2.3 % (0.0-10.0); %Lymphocytes 25.7 % (21.0-51.0); %Monocytes 10.9 % (0.0-10.0); %Neutrophils 60.2 % (42.0-75.0); Mean Corpuscular HGB CONC 33.2 g/dL (32.0-36.0); Mean Corpuscular Hemoglobin 31.6 pg (27.0-31.0); Mean Corpuscular Volume 95.2 fL (78.0-98.0); Mean Platelet Volume 8.3 fL (7.4-10.4); Platelet Count 337 thou/uL (130-400); RBC Distribution Width 13.7 % (11.5-14.5); Red Blood Cell (RBC) Count 3.81 mill/uL (4.20-5.40); White Blood Cell (WBC) Count 7.7 thou/uL (4.8-10.8)
[2019-11-26 07:32] LABS: Anion Gap 11 mmol/L (10-20); BUN (Urea Nitrogen) 15 mg/dL (9.8-20.1); Calc. Creatinine Clearance 85 mL/min (70-130); Carbon Dioxide 27 mmol/L (23-31); Chloride 106 mmol/L (98-107); Estimated GFR-MDRD 69; Glucose 134 mg/dL (83-110); Potassium 4.2 mmol/L (3.5-5.1); Sodium 140 mmol/L (136-145)
[2019-11-26] MEDS: Nitroglycerin 0.1mg/Hour PATCH TD SCH (09:00)
[2019-11-26] MEDS ORDERED: Midazolam HCl 2 mg/2 ml Vial ONE (09:01)
--- NOTE | 2019-11-26 11:35 | RAD ---
Exam: Chest one view HISTORY:Pre-CABG Comparison: 11/24/2019 FINDINGS: Cardiac silhouette: Normal Aorta: Gross Pulmonary vessels: Normal Costophrenic angles: Small left-sided effusion LUNGS: Parenchymal passage in left lung base likely represent atelectasis. Pneumothorax: None Osseous abnormalities: Internal fixation in the left humerus again demonstrated IMPRESSION: Pleural and parenchymal changes left lung base. Atherosclerosis of the aorta.
--- NOTE | 2019-11-26 11:56 | PDOC.HOSPP ---
- Subjective Encounter Date: 11/26/19 Encounter Time: 11:45 Subjective: f/u for CP/unstable angina with LHC showing in-stent stenosis of LAD with recommendations for CABG. Feels ok overall currently. - Objective Vital Signs & Weight: Vital Signs (12 hours) Temp Pulse Resp BP Pulse Ox 11/26/19 07:58 98.5 F 79 18 180/80 H 93 L 11/26/19 03:43 97.6 F 70 20 176/77 H 92 L Weight Weight 192 lb 6.4 oz I&O: 11/25/19 11/26/19 11/27/19 06:59 06:59 06:59 Intake Total 480 1580 Balance 480 1580 Result Diagrams: 11/26/19 06:51 11/26/19 06:51 Additional Labs: Accuchecks 11/26/19 11/26/19 11/25/19 10:46 05:48 20:42 POC Glucose 130 H 133 H 149 H 11/25/19 17:25 POC Glucose 117 H Radiology Reviewed by me: Yes (PCXR - pleural changes in L lung base) EKG Reviewed by me: Yes (Tele - SR) Hospitalist ROS - Medication Medications: Active Medications Generic Name Dose Route Start Last Admin Trade Name Freq PRN Reason Stop Dose Admin Aspirin 81 mg 11/25/19 09:00 11/26/19 05:27 Ecotrin PO 11/29/19 08:30 81 mg DAILY WOOD Administration Docusate Sodium 100 mg 11/25/19 07:24 11/25/19 09:28 Colace PO 11/29/19 08:30 100 mg BIDPRN PRN Administration Constipation Ezetimibe 10 mg 11/25/19 09:00 11/26/19 05:26 Zetia PO 11/29/19 08:30 10 mg DAILY WOOD Administration Levothyroxine Sodium 50 mcg 11/26/19 07:30 11/26/19 05:26 Synthroid PO 11/29/19 08:30 50 mcg DAILY-AC WOOD Administration Losartan Potassium 25 mg 11/25/19 21:00 11/25/19 20:35 Cozaar PO 25 mg HS WOOD Administration Nitroglycerin 0.4 mg 11/25/19 10:03 11/25/19 15:44 Nitrostat SL 11/29/19 08:30 1 tab Q5MIN PRN Administration Chest Pain Nitroglycerin 1 patch 11/26/19 09:00 11/26/19 09:00 Nitro-Dur 0.1mg/Hr Patch TD 11/29/19 08:30 Not Given DAILY WOOD Ondansetron HCl 4 mg 11/25/19 16:41 11/25/19 18:11 Zofran Odt PO 11/29/19 08:30 4 mg Q6H PRN Administration Nausea/Vomiting Pantoprazole Sodium 40 mg 11/25/19 09:00 11/26/19 05:26 Protonix PO 11/29/19 08:30 40 mg BID WOOD Administration Ranolazine 500 mg 11/25/19 09:00 11/26/19 05:26 Ranexa PO 11/29/19 08:30 500 mg BID WOOD Administration Sodium Chloride 10 ml 11/25/19 21:00 11/26/19 09:00 Flush - Normal Saline IVF 11/29/19 08:30 Not Given Q12HR WOOD - Exam General Appearance: NAD, awake alert Eye: PERRL, anicteric sclera ENT: normocephalic atraumatic, no oropharyngeal lesions Neck: supple, symmetric, no JVD, no thyromegaly, no lymphadenopathy Heart: RRR, no murmur, no gallops, no rubs, normal peripheral pulses Respiratory: CTAB, no wheezes, no rales, no ronchi, normal chest expansion Gastrointestinal: soft, non-tender, non-distended, normal bowel sounds, no palpable masses Extremities: no cyanosis, no clubbing, no edema Skin: normal turgor, no lesions Neurological: cranial nerve grossly intact, no new deficit Musculoskeletal: normal tone, normal strength, no muscle wasting Psychiatric: normal affect, A&O x 3 Hosp A/P (1) Unstable angina Status: Acute Plan: Continue ASA/Ranexa/Nitrates, see mgmt below (2) CAD (coronary artery disease) Code(s): I25.10 - ATHSCL HEART DISEASE OF [place] CORONARY ARTERY W/O ANG PCTRS Status: Chronic Qualifiers: Coronary Disease-Associated Artery/Lesion type: [place] artery [place] vs. transplanted heart: [place] heart Associated angina: without angina Qualified Code(s): I25.10 - Atherosclerotic heart disease of [place] coronary artery without angina pectoris Plan: Plan for 2v CABG (3) HTN (hypertension) Code(s): I10 - ESSENTIAL (PRIMARY) HYPERTENSION Status: Chronic Qualifiers: Hypertension type: essential hypertension Plan: Continue home BP regimen, serial BP monitoring (4) Hypothyroidism Code(s): E03.9 - HYPOTHYROIDISM, UNSPECIFIED Status: Chronic Qualifiers: Hypothyroidism type: unspecified Qualified Code(s): E03.9 - Hypothyroidism , unspecified Plan: Continue Levothyroxine 50mcg daily (5) HLD (hyperlipidemia) Code(s): E78.5 - HYPERLIPIDEMIA, UNSPECIFIED Status: Chronic Qualifiers: Hyperlipidemia type: unspecified - Plan social services coordinator, out of bed/ambulate, DVT proph w/SCDs Continue supportive mgmt Continue ASA/Ranexa Plan for 2v CABG Cardiac rehab/OOB AM lab: A1C
[2019-11-26] MEDS: Ondansetron ODT 4 MG TAB PO PRN (12:55)
--- NOTE | 2019-11-26 13:19 | CON ---
DATE OF CONSULTATION: 11/26/2019 REASON FOR CONSULTATION: Evaluate the patient for coronary artery bypass grafting. HISTORY OF PRESENT ILLNESS: Ms. Joyner is a 74-year-old woman, who has a long history of coronary artery disease. She has undergone stenting of her LAD diagonal bifurcation with a bifurcated stent. She has had multiple re-stenoses and angioplasties. She re-presented with chest pain with minimal activity. She underwent recatheterization today revealing restenoses again. I have been asked to see her to discuss coronary artery bypass grafting. PAST MEDICAL HISTORY: 1. Coronary artery disease. 2. Hypertension. 3. Type 2 diabetes mellitus. 4. Asthma. 5. GERD. 6. Peripheral vascular disease. PAST SURGICAL HISTORY: 1. Cholecystectomy. 2. Appendectomy. 3. History of craniotomy for resection of a benign brain tumor. 4. Hysterectomy. 5. Oophorectomy. 6. Bilateral knee replacement. 7. Tonsillectomy. SOCIAL HISTORY: She does not use alcohol, tobacco, or other drugs. CURRENT MEDICATIONS: At home; 1. Aspirin 81 mg daily. 2. Plavix 75 mg daily - she last took it this morning. 3. Zetia 10 mg daily. 4. Losartan 25 mg daily. 5. Levothyroxine 50 mcg daily. 6. Pantoprazole 40 mg b.i.d. 7. Ranolazine 500 mg b.i.d. 8. Sublingual nitroglycerin p.r.n. ALLERGIES: 1. AUDIE INHIBITORS. 2. FENTANYL. 3. MORPHINE. 4. STATINS. REVIEW OF SYSTEMS: A 10-point review of systems is performed and is negative except as above. PHYSICAL EXAMINATION: GENERAL: This is a well-developed, well-nourished woman, resting comfortably in the bed. VITAL SIGNS: Height is 5 feet and 6 inches, weight is 192 pounds, and BSA is 2.02. Temperature is 98.5, pulse is 79 and regular, and blood pressure is 180/80. HEENT: Sclerae are nonicteric. Pupils are equal and round bilaterally. NECK: Supple without bruit. CHEST: Clear bilaterally. CARDIAC: Heart rhythm is regular without murmur. ABDOMEN: Soft and nontender. EXTREMITIES: No cyanosis, clubbing, or edema. VASCULAR: She has palpable carotid, radial, and femoral pulses bilaterally. LABORATORY DATA: Of note, hemoglobin is 12.0, platelet count is 337,000. Creatinine is 0.82, potassium is 4.2, blood sugars have been in the 110 to 200 range. ASSESSMENT AND PLAN: This is a very pleasant 74-year-old woman, who has history of coronary artery disease with bifurcated left anterior descending diagonal stent. We have discussed coronary artery bypass grafting due to restenosis on multiple occasions. She is agreeable to proceed. We will hold her Plavix and plan for surgery on Friday. Job ID: [id number]
[2019-11-26] MEDS ORDERED: Iopamidol 370 76% 100 ML VIAL ONE (13:24)
[2019-11-26] MEDS: Gabapentin 300 MG CAP PO SCH (20:18)
[2019-11-26] MEDS: Losartan 25 MG TAB PO SCH (20:19)
[2019-11-26] MEDS: Nitroglycerin 0.4 MG TAB (25 Tab Bottle) SL PRN (21:11)
[2019-11-27] MEDS: Nitroglycerin 0.4 MG TAB (25 Tab Bottle) SL PRN ×2 (03:11→21:00)
[2019-11-27 05:03] LABS: Hemoglobin A1c 5.4 % (4.0-6.0)
[2019-11-27] MEDS: Aspirin 81 mg Enteric Coated Tablet PO SCH (08:10)
[2019-11-27] MEDS: Nitroglycerin 0.1mg/Hour PATCH TD SCH ×2 (08:10→20:50)
[2019-11-27] MEDS: Levothyroxine Sodium 50 MCG TAB PO SCH (08:10)
[2019-11-27] MEDS: Ezetimibe 10 MG TAB PO SCH (08:10)
--- NOTE | 2019-11-27 11:40 | PDOC.HOSPP ---
- Subjective Encounter Date: 11/27/19 Encounter Time: 11:35 Subjective: f/u for angina and CAD with plans for CABG on 11/29/19. Had CP overnight tx with SL nitro. - Objective Vital Signs & Weight: Vital Signs (12 hours) Temp Pulse Resp BP Pulse Ox 11/27/19 08:00 97.6 F 71 17 132/74 93 L 11/27/19 03:25 98.3 F 85 20 154/68 H 91 L 11/26/19 23:57 77 133/63 Weight Weight 185 lb 4.8 oz I&O: 11/26/19 11/27/19 11/28/19 06:59 06:59 06:59 Intake Total 1580 1100 Balance 1580 1100 Result Diagrams: 11/26/19 06:51 11/26/19 06:51 Additional Labs: Accuchecks 11/27/19 11/26/19 11/26/19 05:46 20:19 16:38 POC Glucose 127 H 117 H 149 H 11/26/19 10:46 POC Glucose 130 H Laboratory Tests 11/27/19 04:38 Hemoglobin A1c 5.4 Radiology Reviewed by me: Yes (PCXR - L lung base atelectasis) EKG Reviewed by me: Yes (Tele - SR) Hospitalist ROS - Medication Medications: Active Medications Generic Name Dose Route Start Last Admin Trade Name Freq PRN Reason Stop Dose Admin Aspirin 81 mg 11/25/19 09:00 11/27/19 08:10 Ecotrin PO 11/29/19 08:30 81 mg DAILY WOOD Administration Docusate Sodium 100 mg 11/25/19 07:24 11/25/19 09:28 Colace PO 11/29/19 08:30 100 mg BIDPRN PRN Administration Constipation Ezetimibe 10 mg 11/25/19 09:00 11/27/19 08:10 Zetia PO 11/29/19 08:30 10 mg DAILY WOOD Administration Gabapentin 600 mg 11/26/19 21:00 11/26/19 20:18 Neurontin PO 600 mg HS WOOD Administration Levothyroxine Sodium 50 mcg 11/26/19 07:30 11/27/19 08:10 Synthroid PO 11/29/19 08:30 50 mcg DAILY-AC WOOD Administration Losartan Potassium 25 mg 11/25/19 21:00 08/21/20 20:19 Cozaar PO 25 mg HS WOOD Administration Nitroglycerin 0.4 mg 11/25/19 10:03 11/27/19 03:11 Nitrostat SL 11/29/19 08:30 1 tab Q5MIN PRN Administration Chest Pain Nitroglycerin 1 patch 11/26/19 09:00 11/27/19 08:10 Nitro-Dur 0.1mg/Hr Patch TD 11/29/19 08:30 1 patch DAILY WOOD Administration Ondansetron HCl 4 mg 11/25/19 16:41 11/26/19 12:55 Zofran Odt PO 11/29/19 08:30 4 mg Q6H PRN Administration Nausea/Vomiting Pantoprazole Sodium 40 mg 11/25/19 09:00 11/27/19 08:10 Protonix PO 11/29/19 08:30 40 mg BID WOOD Administration Ranolazine 500 mg 11/25/19 09:00 11/27/19 08:10 Ranexa PO 11/29/19 08:30 500 mg BID WOOD Administration Sodium Chloride 10 ml 11/25/19 21:00 11/27/19 08:20 Flush - Normal Saline IVF 11/29/19 08:30 10 ml Q12HR WOOD Administration - Exam General Appearance: NAD, awake alert Eye: PERRL, anicteric sclera ENT: normocephalic atraumatic, no oropharyngeal lesions Neck: supple, symmetric, no JVD, no thyromegaly, no lymphadenopathy Heart: RRR, no gallops, no rubs, normal peripheral pulses Heart - other findings: S1, S2 Respiratory: CTAB, no wheezes, no rales, no ronchi, normal chest expansion, no tachypnea Gastrointestinal: soft, non-tender, non-distended, normal bowel sounds, no palpable masses Extremities: no cyanosis, no clubbing, no edema Skin: normal turgor, no lesions Neurological: cranial nerve grossly intact, no new deficit Musculoskeletal: normal tone, normal strength Psychiatric: normal affect, A&O x 3 Hosp A/P (1) Unstable angina Status: Acute Plan: Secondary to re-stenosis of prior bifurcated stent in LAD/Diagonal by [facility], continue ASA/Nitro/Ranexa (2) CAD (coronary artery disease) Code(s): I25.10 - ATHSCL HEART DISEASE OF [place] CORONARY ARTERY W/O ANG PCTRS Status: Chronic Qualifiers: Coronary Disease-Associated Artery/Lesion type: [place] artery [place] vs. transplanted heart: [place] heart Associated angina: without angina Qualified Code(s): I25.10 - Atherosclerotic heart disease of [place] coronary artery without angina pectoris Plan: See above, plan for CABG on 11/29/19 (3) HTN (hypertension) Code(s): I10 - ESSENTIAL (PRIMARY) HYPERTENSION Status: Chronic Qualifiers: Hypertension type: essential hypertension (4) Hypothyroidism Code(s): E03.9 - HYPOTHYROIDISM, UNSPECIFIED Status: Chronic Qualifiers: Hypothyroidism type: unspecified Qualified Code(s): E03.9 - Hypothyroidism , unspecified (5) HLD (hyperlipidemia) Code(s): E78.5 - HYPERLIPIDEMIA, UNSPECIFIED Status: Chronic Qualifiers: Hyperlipidemia type: unspecified - Plan PT/OT, social sciences instructor, out of bed/ambulate, DVT proph w/SCDs Continue supportive mgmt Continue ASA/Ranexa/Nitro patch Plan for 2v CABG 11/29/19 Cardiac rehab/OOB COVID-19 screening pending Add Nitropaste 0.5in ACW q8h PRN
[2019-11-27] MEDS ORDERED: Nitroglycerin 2% Ointment 1 INCH/1 GM Packet TOP PRN (12:08)
[2019-11-27 14:06] LABS: SARS-CoV-2 MS2 Positive; SARS-CoV-2 N Gene Negative; SARS-CoV-2 S Gene Negative; SARS-CoV-2 by NAA Not Detected (NotDetected); SARS-CoV-2 orf1ab Negative
[2019-11-27] MEDS: Gabapentin 300 MG CAP PO SCH (20:54)
[2019-11-27] MEDS: Losartan 25 MG TAB PO SCH (20:54)
[2019-11-27] MEDS: Ondansetron ODT 4 MG TAB PO PRN (21:00)
[2019-11-28] MEDS: Aspirin 81 mg Enteric Coated Tablet PO SCH (08:29)
[2019-11-28] MEDS: Levothyroxine Sodium 50 MCG TAB PO SCH (08:29)
[2019-11-28] MEDS: Ezetimibe 10 MG TAB PO SCH (08:29)
--- NOTE | 2019-11-28 11:15 | PDOC.HOSPP ---
- Subjective Encounter Date: 11/28/19 Encounter Time: 11:15 Subjective: f/u for CAD/Angina with plans for CABG on 11/29/19. CP last pm tx with topical/ SL nitro. - Objective Vital Signs & Weight: Vital Signs (12 hours) Temp Pulse Resp BP Pulse Ox 11/28/19 07:19 98.4 F 88 16 124/65 95 11/28/19 03:37 97.8 F 84 20 101/55 L 94 L 11/27/19 23:32 94 101/59 L Weight Weight 188 lb I&O: 11/27/19 11/28/19 11/29/19 06:59 06:59 06:59 Intake Total 1100 1197 Balance 1100 1197 Result Diagrams: 11/26/19 06:51 11/26/19 06:51 Additional Labs: Accuchecks 11/28/19 11/27/19 11/27/19 05:34 20:38 16:42 POC Glucose 131 H 148 H 132 H 11/27/19 12:15 POC Glucose 118 H EKG Reviewed by me: Yes (Tele - SR) Hospitalist ROS - Medication Medications: Active Medications Generic Name Dose Route Start Last Admin Trade Name Freq PRN Reason Stop Dose Admin Aspirin 81 mg 11/25/19 09:00 11/28/19 08:29 Ecotrin PO 11/29/19 08:30 81 mg DAILY WOOD Administration Docusate Sodium 100 mg 11/25/19 07:24 11/25/19 09:28 Colace PO 11/29/19 08:30 100 mg BIDPRN PRN Administration Constipation Ezetimibe 10 mg 11/25/19 09:00 11/28/19 08:29 Zetia PO 11/29/19 08:30 10 mg DAILY WOOD Administration Gabapentin 600 mg 11/26/19 21:00 11/27/19 20:54 Neurontin PO 600 mg HS WOOD Administration Levothyroxine Sodium 50 mcg 11/26/19 07:30 11/28/19 08:29 Synthroid PO 11/29/19 08:30 50 mcg DAILY-AC WOOD Administration Losartan Potassium 25 mg 11/25/19 21:00 11/27/19 20:54 Cozaar PO 25 mg HS WOOD Administration Nitroglycerin 0.4 mg 11/25/19 10:03 11/27/19 21:00 Nitrostat SL 11/29/19 08:30 1 tab Q5MIN PRN Administration Chest Pain Nitroglycerin 1 patch 11/27/19 21:00 11/27/19 20:50 Nitro-Dur 0.1mg/Hr Patch TD 11/29/19 08:30 1 patch HS WOOD Administration Ondansetron HCl 4 mg 11/25/19 16:41 11/27/19 21:00 Zofran Odt PO 11/29/19 08:30 4 mg Q6H PRN Administration Nausea/Vomiting Pantoprazole Sodium 40 mg 11/25/19 09:00 11/28/19 08:30 Protonix PO 11/29/19 08:30 40 mg BID WOOD Administration Ranolazine 500 mg 11/25/19 09:00 11/28/19 08:30 Ranexa PO 11/29/19 08:30 500 mg BID WOOD Administration Sodium Chloride 10 ml 11/25/19 21:00 11/28/19 08:31 Flush - Normal Saline IVF 11/29/19 08:30 10 ml Q12HR WOOD Administration - Exam General Appearance: NAD, awake alert Eye: PERRL, anicteric sclera ENT: normocephalic atraumatic, no oropharyngeal lesions Neck: supple, symmetric, no JVD, no thyromegaly, no lymphadenopathy Heart: RRR, no gallops, no rubs, normal peripheral pulses Heart - other findings: S1, S2 Respiratory: CTAB, no wheezes, no rales, no ronchi, normal chest expansion, no tachypnea Gastrointestinal: soft, non-tender, non-distended, normal bowel sounds, no palpable masses Extremities: no cyanosis, no clubbing, no edema Skin: normal turgor, no lesions Neurological: cranial nerve grossly intact, no new deficit Musculoskeletal: normal tone, normal strength, no muscle wasting Psychiatric: normal affect, A&O x 3 Hosp A/P (1) Unstable angina Status: Acute Plan: Continue ASA/Nitrates/Ranexa (2) CAD (coronary artery disease) Code(s): I25.10 - ATHSCL HEART DISEASE OF [place] CORONARY ARTERY W/O ANG PCTRS Status: Chronic Qualifiers: Coronary Disease-Associated Artery/Lesion type: [place] artery [place] vs. transplanted heart: [place] heart Associated angina: without angina Qualified Code(s): I25.10 - Atherosclerotic heart disease of [place] coronary artery without angina pectoris Plan: See above, plan for CABG on 11/29/19 (3) HTN (hypertension) Code(s): I10 - ESSENTIAL (PRIMARY) HYPERTENSION Status: Chronic Qualifiers: Hypertension type: essential hypertension Qualified Code(s): I10 - Essential (primary) hypertension (4) Hypothyroidism Code(s): E03.9 - HYPOTHYROIDISM, UNSPECIFIED Status: Chronic Qualifiers: Hypothyroidism type: unspecified Qualified Code(s): E03.9 - Hypothyroidism , unspecified (5) HLD (hyperlipidemia) Code(s): E78.5 - HYPERLIPIDEMIA, UNSPECIFIED Status: Chronic Qualifiers: Hyperlipidemia type: unspecified Qualified Code(s): E78.5 - Hyperlipidemia , unspecified - Plan rn social work, out of bed/ambulate, DVT proph w/SCDs Continue supportive mgmt Continue ASA/Ranexa/Nitro patch Plan for 2v CABG 11/29/19 Cardiac rehab/OOB COVID-19 PCR negative Add Nitropaste 0.5in ACW q8h PRN NPO after MN
[2019-11-28] MEDS: Gabapentin 300 MG CAP PO SCH (21:06)
[2019-11-28] MEDS: Losartan 25 MG TAB PO SCH (21:06)
[2019-11-28] MEDS: Nitroglycerin 0.1mg/Hour PATCH TD SCH (21:06)
[2019-11-29] MEDS ORDERED: EPINEPHrine 1 MG/ML AMP ONE (06:31)
[2019-11-29] MEDS ORDERED: Albumin 5% 500 ML ONE (06:31)
[2019-11-29] MEDS ORDERED: Bupivacaine PF 0.5% 30 ML VIAL ONE (06:31)
[2019-11-29] MEDS ORDERED: Midazolam HCl 5 mg/5 ml Vial ONE (06:33)
[2019-11-29] MEDS ORDERED: Midazolam HCl 2 mg/2 ml Vial ONE (06:33)
[2019-11-29] MEDS ORDERED: Fentanyl 100 MCG/2 ML VIAL ONE (06:33)
[2019-11-29] MEDS ORDERED: Vecuronium 10 MG VIAL ONE ×2 (06:34→09:24)
[2019-11-29] MEDS ORDERED: Dexmedetomidine 200 MCG/2 ML VIAL ONE (06:34)
[2019-11-29] MEDS ORDERED: Heparin 10,000 UNITS/1 ML VIAL 30,000 UNITS in Sodium Chloride 0.9% 1,000 ML FS SCH (07:00)
[2019-11-29] MEDS ORDERED: CEFAZOLIN 2 GM in Premix Bag 1 BAG IVPB SCH (07:30)
[2019-11-29] MEDS ORDERED: CEFAZOLIN 1 GM VIAL SLOW IVP SCH (07:30)
[2019-11-29] MEDS ORDERED: Insulin Regular 300 UNITS/3 ML VIAL ONE (07:56)
[2019-11-29 08:11] LABS: Actual Bicarbonate (HCO3a) 23.3 mEq/L (22-28); Base Excess (BEa) -0.6 mEq/L (-2.0 to +3.0); CO2 Tension 35.5 mmHg (35.0-45.0); Calcium, Ionized (arterial) 1.14 mmol/L (1.12-1.30); Carboxyhemoglobin (COHb) 0.1 gm% (0.0-3.0); Hemoglobin (Hb) 11.4 g/dL (12.0-16.0); O2 Tension (PaO2), arterial 342.3 mmHg (> 70.0); Potassium - ABG Lab 4.36 mmol/L (3.70-5.30)
[2019-11-29] MEDS ORDERED: Dexamethasone 4 mg/ml Vial ONE (08:48)
[2019-11-29] MEDS ORDERED: Ketorolac Tromethamine 30 MG/ML VIAL ONE (09:24)
[2019-11-29] MEDS ORDERED: Thrombin 5000 UNITS/5 ML VIAL ONE (09:24)
[2019-11-29] MEDS ORDERED: Protamine Sulfate 250 MG/25 ML VIAL ONE (09:24)
[2019-11-29] MEDS ORDERED: Papaverine 60 MG/2 ML VIAL ONE (09:24)
[2019-11-29] MEDS ORDERED: Heparin 30,000 units/30 ml VIAL ONE (09:24)
[2019-11-29] MEDS ORDERED: Calcium Chloride 1 GM/10 ML Abboject SYRINGE ONE (09:24)
[2019-11-29] MEDS ORDERED: Nitroglycerin 50 MG/250 ML BOT ONE (09:24)
[2019-11-29] MEDS ORDERED: Heparin 5,000 UNITS/ML VIAL ONE (09:24)
[2019-11-29] MEDS ORDERED: DOPamine 400 MG/10 ML VIAL ONE (09:24)
[2019-11-29] MEDS ORDERED: Glycopyrrolate 0.2 MG/ML 5 ML SYRINGE ONE (09:24)
[2019-11-29] MEDS ORDERED: Ondansetron PF 4 MG/2 ML Vial ONE (09:24)
[2019-11-29] MEDS ORDERED: PHENYLEPHRINE-NS 100 MCG/ML 10 ML SYRINGE ONE (09:24)
[2019-11-29] MEDS ORDERED: Aminocaproic Acid 5 GM/20 ML VIAL ONE (09:24)
[2019-11-29] MEDS ORDERED: Lidocaine 1% PF 5 ML VIAL ONE (09:24)
[2019-11-29] MEDS ORDERED: Dexamethasone 20 MG/5 ML VIAL ONE (09:24)
[2019-11-29 09:38] LABS: Actual Bicarbonate (HCO3a) 18.3 mEq/L (22-28); Base Excess (BEa) -4.9 mEq/L (-2.0 to +3.0); Carboxyhemoglobin (COHb) 0.3 gm% (0.0-3.0); Hemoglobin (Hb) 8.3 g/dL (12.0-16.0); O2 Tension (PaO2), arterial 197.7 mmHg (> 70.0); Potassium - ABG Lab 2.72 mmol/L (3.70-5.30); pH, Arterial 7.45 (7.35-7.45)
[2019-11-29] MEDS ORDERED: Nitroglycerin 50 MG/250 ML BOT 250 ML IVPB PRN (10:21)
[2019-11-29] MEDS ORDERED: Bisacodyl 10 MG SUPP PR PRN (10:21)
[2019-11-29] MEDS ORDERED: Fentanyl 100 MCG/2 ML VIAL SLOW IVP PRN ×2 (10:21)
[2019-11-29] MEDS ORDERED: Promethazine HCl 25 MG/ML VIAL IM PRN (10:21)
[2019-11-29] MEDS ORDERED: Hetastarch 6% 500 ML 500 ML IVPB PRN (10:21)
[2019-11-29] MEDS ORDERED: traMADol HCl 50 MG TAB PO PRN (10:21)
[2019-11-29] MEDS ORDERED: hydrALAZINE 20 MG/ML VIAL SLOW IVP PRN (10:21)
[2019-11-29] MEDS ORDERED: Guaifenesin DM 100-10/5 ML UDCUP PO PRN (10:21)
[2019-11-29] MEDS ORDERED: Post-Op Insulin Drip Protocol IVPB ONE (10:21)
[2019-11-29] MEDS ORDERED: Potassium Chloride 20 MEQ/100 ML PREMIX BAG IVPB PRN (10:21)
[2019-11-29] MEDS ORDERED: Mag-Al 1200 mg/1200 mg/30 ML UDCUP PO PRN (10:21)
[2019-11-29] MEDS ORDERED: Norepinephrine 8 MG/0.9% NS 250 ML IVPB PRN (10:21)
[2019-11-29] MEDS ORDERED: Magnesium 2 GM/50 ML 2 GM in Premix Bag 1 BAG IVPB SCH (10:30)
[2019-11-29] MEDS ORDERED: Dextrose 5% in Water 1,000 ML IV PRN (10:32)
[2019-11-29] MEDS ORDERED: HUMULIN R 100 UNITS in Sodium Chloride 0.9% 100 ML IVPB SCH (10:32)
[2019-11-29] MEDS ORDERED: Dextrose 50% Abboject 50 ML SYRINGE SLOW IVP PRN (10:32)
[2019-11-29] MEDS ORDERED: Insulin Regular 300 UNITS/3 ML VIAL SC PRN (10:32)
[2019-11-29] MEDS: Sodium Chloride 0.9% 1,000 ML IV SCH (10:50)
[2019-11-29 10:59] LABS: #Basophils 0.1 thou/uL (0.0-0.2); #Eosinphils 0.1 thou/uL (0.0-0.7); #Monocytes 0.9 thou/uL (0.11-0.59); #Neutrophils 10.7 thou/uL (1.40-6.50); %Basophils 0.6 % (0.0-1.0); %Eosinophils 0.9 % (0.0-10.0); %Lymphocytes 14.4 % (21.0-51.0); %Monocytes 6.3 % (0.0-10.0); %Neutrophils 77.7 % (42.0-75.0); Hemoglobin 9.5 g/dL (12.0-16.0); Mean Corpuscular Hemoglobin 32.2 pg (27.0-31.0); Mean Corpuscular Volume 94.8 fL (78.0-98.0); Mean Platelet Volume 8.2 fL (7.4-10.4); Platelet Count 288 thou/uL (130-400); RBC Distribution Width 13.7 % (11.5-14.5); Red Blood Cell (RBC) Count 2.96 mill/uL (4.20-5.40); White Blood Cell (WBC) Count 13.8 thou/uL (4.8-10.8)
--- NOTE | 2019-11-29 11:03 | RAD ---
XR Chest 1 View Portable History: Open-heart surgery Comparison: Radiograph November 26, 2019 Findings: Central venous catheter tip projects over the right atrium. Multiple midline sternotomy wir es. Scattered atelectatic changes. Small left effusion. Mediastinal drain is in place. Impression: Expected postoperative findings without complication.
[2019-11-29 11:09] LABS: INR-International Normal Ratio 1.2; PTT 34.4 sec (22.9-36.1); Prothrombin Time 14.7 sec (12.0-14.7)
[2019-11-29] MEDS: Levothyroxine Sodium 50 MCG TAB PO SCH (11:22)
[2019-11-29 11:23] LABS: Anion Gap 13 mmol/L (10-20); BUN (Urea Nitrogen) 22 mg/dL (9.8-20.1); Calc. Creatinine Clearance 80 mL/min (70-130); Calcium 7.8 mg/dL (7.8-10.44); Carbon Dioxide 24 mmol/L (23-31); Chloride 107 mmol/L (98-107); Estimated GFR-MDRD 65; Glucose 168 mg/dL (83-110); Potassium 3.5 mmol/L (3.5-5.1); Sodium 140 mmol/L (136-145)
[2019-11-29] MEDS: Ketorolac Tromethamine 30 MG/ML VIAL IVP SCH ×3 (11:39→23:54)
--- NOTE | 2019-11-29 11:45 | PDOC.CPN ---
- Subjective Date: 11/29/19 Time: 11:43 Interval history: She just had her surgery done. BP ios needing support with innotropes and pressors. Still somnolent. - Review of Systems ROS unobtainable: due to mental status - Objective Allergies/Adverse Reactions: Allergies Allergy/AdvReac Type Severity Reaction Status Date / Time morphine Allergy Intermediate ITCHING Verified 03/22/19 17:09 AUDIE Inhibitors Allergy COUGH Verified 03/22/19 17:09 fentanyl AdvReac Severe GIVEN A Verified 03/22/19 17:09 HIGH DOSE AND HEART STOPPPED Visit Medications: Current Medications Acetaminophen (Tylenol) 650 mg PO Q6H PRN PRN Reason: Headache/Fever Or Mild Pain Al Hydroxide/Mg Hydroxide (Maalox) 30 ml PO Q4H PRN PRN Reason: Indigestion Albumin Human (Albumin 5%) 12.5 gm IVPB Q6H PRN PRN Reason: To Maintain SBP> 90 mmHG Stop: 11/30/19 10:22 Last Admin: 11/29/19 11:00 Dose: 12.5 gm Albumin Human (Albumin 5%) 25 gm IVPB Q6H PRN PRN Reason: To Maintain SBP > 90 mmHG Stop: 11/30/19 10:22 Albuterol/Ipratropium (Duoneb) 3 ml NEB Q6H PRN PRN Reason: SHORTNESS OF BREATH Aspirin (Aspirin) 325 mg PO DAILY WOOD Bisacodyl (Dulcolax) 10 mg PO Q12H PRN PRN Reason: Constipation Bisacodyl (Dulcolax) 10 mg [place] Q12H PRN PRN Reason: Constipation Dextrose/Water (Dextrose 50%) 25 gm SLOW IVP PRN PRN PRN Reason: PER HYPOGLYCEMIC PROTOCOL Famotidine (Pepcid) 20 mg SLOW IVP Q12HR WOOD Fentanyl (Sublimaze) 25 mcg SLOW IVP Q2H PRN PRN Reason: Moderate Pain (4-6) Stop: 12/01/19 10:18 Fentanyl (Sublimaze) 50 mcg SLOW IVP Q2H PRN PRN Reason: Severe Pain (7-10) Stop: 12/01/19 10:18 Glucagon (Glucagon) 1 mg SC PRN PRN PRN Reason: PER HYPOGLYCEMIC PROTOCOL Guaifenesin/Dextromethorphan (Robitussin Dm) 15 ml PO Q4H PRN PRN Reason: Cough Hydralazine HCl (Apresoline) 10 mg SLOW IVP Q6H PRN PRN Reason: To Maintain SBP< 140mmHG Cefazolin Sodium/Dextrose 2 gm (/ Device) 50 mls @ 100 mls/hr IVPB Q8HR [facility] Stop: 11/30/19 06:29 Hetastarch/Sodium Chloride (Hespan) 500 mls @ 0 mls/hr IVPB PRN PRN PRN Reason: To Maintain SBP > 90mmHg Stop: 11/30/19 10:18 Norepinephrine Bitartrate (Levophed) 250 mls @ 0 mls/hr IVPB PRN PRN; Protocol PRN Reason: To maintain SBP > 90 mmHG Last Admin: 11/29/19 11:34 Dose: 250 mls Magnesium Sulfate 2 gm/ Device 50 mls @ 50 mls/hr IVPB NOW [facility] Stop: 11/29/19 12:30 Last Admin: 11/29/19 11:00 Dose: 50 mls Magnesium Sulfate 2 gm/ Device 50 mls @ 50 mls/hr IVPB QAM [facility] Stop: 12/01/19 09:59 Nitroglycerin/Dextrose (Nitroglycerin 50 Mg/250 Ml Bot) 250 mls @ 0 mls/hr IVPB PRN PRN; Protocol PRN Reason: To Maintain SBP< 140mmHG Sodium Chloride (Normal Saline 0.9%) 1,000 mls @ 40 mls/hr IV .Q24H [facility] Last Admin: 11/29/19 10:50 Dose: 1,000 mls Insulin Human Regular 100 (units/ Sodium Chloride) 101 mls @ 0 mls/hr IVPB INF WOOD; Protocol Dextrose/Water (D5w) 1,000 mls @ 0 mls/hr IV INF PRN PRN Reason: PRN HYPOGLYCEMIC PROTOCOL Insulin Human Regular (Humulin R) 0 units SC Q4H PRN; Protocol PRN Reason: POST OP SLIDING SCALE Ketorolac Tromethamine (Toradol) 30 mg IVP Q6HR [facility] Stop: 12/02/19 12:01 Last Admin: 11/29/19 11:39 Dose: Not Given Ondansetron HCl (Zofran) 4 mg IVP Q6H PRN PRN Reason: Nausea/Vomiting Potassium Chloride (Kcl) 20 meq IVPB PRN PRN PRN Reason: K level </= 4.0 Promethazine HCl (Phenergan) 6.25 mg IM Q4H PRN PRN Reason: Nausea/Vomiting Sodium Chloride (Flush - Normal Saline) 10 ml IVF PRN PRN PRN Reason: Saline Flush Tramadol HCl (Ultram) 50 mg PO Q6H PRN PRN Reason: Moderate Pain (4-6) Tramadol HCl (Ultram) 100 mg PO Q6H PRN PRN Reason: Severe Pain (7-10) Vital Signs & Weight: Vital Signs Temp Pulse Resp BP Pulse Ox 11/29/19 05:00 97.8 F 112 H 20 131/81 94 L 11/29/19 01:13 97.8 F 93 20 128/61 92 L Weight 188 lb - Physical Exam General: no apparent distress HEENT: normocephaly Neck: supple neck Cardiac: regular rate and rhythm Lungs: normal breath sounds Neuro: no lateralizing findings Abdomen: active bowel sounds Extremities: no edema Skin: clear Musculoskeletal: no pain - Labs Result Diagrams: 11/29/19 10:51 11/29/19 10:51 Troponin/CKMB Troponin I 0.010 ng/mL (< 0.028) 11/24/19 23:23 - Telemetry Sinus rhythms and dysrhythmias: sinus rhythm - Assessment/Plan Assessment/Plan: 1. Unstable angina 2. CAD 3. S/P CABG PLAN: - Continue supportive care. - Levophed for BP preferred. - Likely needs volume. - Will follow.
[2019-11-29] MEDS: traMADol HCl 50 MG TAB PO PRN ×2 (13:39→21:59)
[2019-11-29] MEDS: CEFAZOLIN 2 GM in Premix Bag 1 BAG IVPB SCH ×2 (13:39→21:58)
[2019-11-29] MEDS: Acetaminophen 325 MG TAB PO PRN ×2 (13:42→20:10)
[2019-11-29 16:29] LABS: Hemoglobin 8.9 g/dL (12.0-16.0)
[2019-11-29 16:44] LABS: Potassium 4.5 mmol/L (3.5-5.1)
--- NOTE | 2019-11-29 17:04 | PDOC.HOSPP ---
- Subjective Encounter Date: 11/29/19 Encounter Time: 16:15 Subjective: f/u for CAD s/p 2v CABG now extubated. Pt states some soreness with deep breaths but o/w feels ok. - Objective Vital Signs & Weight: Vital Signs (12 hours) Temp Pulse Ox 11/29/19 16:00 96 11/29/19 11:00 97.6 F 11/29/19 10:40 97.6 F 96 Weight Weight 200 lb 9.93 oz Most Recent Monitor Data Heart Rate from ECG 77 NIBP 105/65 NIBP BP-Mean 78 Respiration from ECG 30 SpO2 96 I&O: 11/28/19 11/29/19 11/30/19 06:59 06:59 06:59 Intake Total 9345 236 1334 Output Total 635 Balance 1197 720 411 Result Diagrams: 11/29/19 16:16 11/29/19 16:16 Additional Labs: Accuchecks 11/29/19 11/29/19 11/29/19 09:24 08:53 08:12 POC Glucose 106 94 144 H 11/29/19 11/28/19 11/28/19 05:25 20:52 16:12 POC Glucose 162 H 118 H 128 H Laboratory Tests 11/27/19 04:38 Hemoglobin A1c 5.4 Radiology Reviewed by me: Yes (PCXR - post-op changes, lines/tubes in position) EKG Reviewed by me: Yes (Tele - SR) Hospitalist ROS - Medication Medications: Active Medications Generic Name Dose Route Start Last Admin Trade Name Freq PRN Reason Stop Dose Admin Acetaminophen 650 mg 11/29/19 10:21 11/29/19 13:42 Tylenol PO 650 mg Q6H PRN Administration Headache/Fever Or Mild Pain Albumin Human 12.5 gm 11/29/19 10:21 11/29/19 11:00 Albumin 5% IVPB 11/30/19 10:22 12.5 gm Q6H PRN Administration To Maintain SBP> 90 mmHG Cefazolin Sodium/Dextrose 2 gm 50 mls @ 100 mls/hr 11/29/19 14:00 11/29/19 13 :39 / Device IVPB 11/30/19 06:29 50 mls Q8HR WOOD Administration Hetastarch/Sodium Chloride 500 mls @ 0 mls/hr 11/29/19 10:21 11/29/19 15:08 Hespan IVPB 11/30/19 10:18 500 mls PRN PRN Administration To Maintain SBP > 90mmHg As Directed Norepinephrine Bitartrate 250 mls @ 0 mls/hr 11/29/19 10:21 11/29/19 11:34 Levophed IVPB 250 mls PRN PRN Administration To maintain SBP > 90 mmHG Protocol Titrate Sodium Chloride 1,000 mls @ 40 mls/hr 11/29/19 10:30 11/29/19 10:50 Normal Saline 0.9% IV 1,000 mls .Q24H WOOD Administration Ketorolac Tromethamine 30 mg 11/29/19 12:00 11/29/19 11:39 Toradol IVP 12/02/19 12:01 Not Given Q6HR WOOD Potassium Chloride 20 meq 11/29/19 10:21 11/29/19 11:52 Kcl IVPB 20 meq PRN PRN Administration K level </= 4.0 Tramadol HCl 50 mg 11/29/19 10:21 11/29/19 13:39 Ultram PO 50 mg Q6H PRN Administration Moderate Pain (4-6) - Exam General Appearance: NAD, awake alert Eye: PERRL, anicteric sclera ENT: normocephalic atraumatic, no oropharyngeal lesions Neck: supple, symmetric, no JVD, no thyromegaly, no lymphadenopathy Heart: RRR, no gallops, no rubs, normal peripheral pulses Heart - other findings: S1, S2 Respiratory: CTAB, no wheezes, no rales, no ronchi, normal chest expansion, no tachypnea Respiratory - other findings: CT's in place Gastrointestinal: soft, non-tender, non-distended, normal bowel sounds, no palpable masses Gastrointestinal - other findings: Sinha in place with rosalie urine Extremities: no cyanosis, no clubbing, no edema Skin: normal turgor, no lesions Skin - other findings: chest dressing in place Neurological: cranial nerve grossly intact, no new deficit Musculoskeletal: normal tone, normal strength, no muscle wasting Psychiatric: normal affect, A&O x 3 Hosp A/P (1) Unstable angina Status: Acute Plan: s/p 2v CABG, continue routine post-CABG protocol, pain control, IS (2) CAD (coronary artery disease) Code(s): I25.10 - ATHSCL HEART DISEASE OF [place] CORONARY ARTERY W/O ANG PCTRS Status: Chronic Qualifiers: Coronary Disease-Associated Artery/Lesion type: [place] artery [place] vs. transplanted heart: [place] heart Associated angina: without angina Qualified Code(s): I25.10 - Atherosclerotic heart disease of [place] coronary artery without angina pectoris Plan: s/p CABG x 2v (3) HTN (hypertension) Code(s): I10 - ESSENTIAL (PRIMARY) HYPERTENSION Status: Chronic Qualifiers: Hypertension type: essential hypertension Qualified Code(s): I10 - Essential (primary) hypertension Plan: Relative hypotension post-CABG, pressor support, IVF's (4) Hypothyroidism Code(s): E03.9 - HYPOTHYROIDISM, UNSPECIFIED Status: Chronic Qualifiers: Hypothyroidism type: unspecified Qualified Code(s): E03.9 - Hypothyroidism , unspecified (5) HLD (hyperlipidemia) Code(s): E78.5 - HYPERLIPIDEMIA, UNSPECIFIED Status: Chronic Qualifiers: Hyperlipidemia type: unspecified Qualified Code(s): E78.5 - Hyperlipidemia , unspecified - Plan PT/OT, health social work professor, respiratory therapy, incentive spirometry, DVT proph w/ SCDs Continue supportive mgmt Continue ASA/Ranexa/Nitro patch Post-CABG protocol Cardiac rehab/OOB COVID-19 PCR negative Pain control as clinically indicated AM Lab: BMP, CBC
[2019-11-29] MEDS ORDERED: Famotidine/PF 20 mg/2ml Vial SLOW IVP SCH (21:00)
[2019-11-30] MEDS: Acetaminophen 325 MG TAB PO PRN ×2 (01:47→11:19)
[2019-11-30 04:20] LABS: #Monocytes 1.5 thou/uL (0.11-0.59); #Neutrophils 12.2 thou/uL (1.40-6.50); %Basophils 0.1 % (0.0-1.0); %Eosinophils 0.1 % (0.0-10.0); %Lymphocytes 6.7 % (21.0-51.0); %Monocytes 10.2 % (0.0-10.0); Hemoglobin 8.2 g/dL (12.0-16.0); Mean Corpuscular HGB CONC 31.6 g/dL (32.0-36.0); Mean Corpuscular Hemoglobin 30.2 pg (27.0-31.0); Mean Corpuscular Volume 95.5 fL (78.0-98.0); Mean Platelet Volume 8.5 fL (7.4-10.4); Platelet Count 308 thou/uL (130-400); Red Blood Cell (RBC) Count 2.71 mill/uL (4.20-5.40); White Blood Cell (WBC) Count 14.7 thou/uL (4.8-10.8)
[2019-11-30 04:38] LABS: Anion Gap 9 mmol/L (10-20); BUN (Urea Nitrogen) 20 mg/dL (9.8-20.1); Calc. Creatinine Clearance 95 mL/min (70-130); Calcium 7.6 mg/dL (7.8-10.44); Carbon Dioxide 23 mmol/L (23-31); Chloride 110 mmol/L (98-107); Estimated GFR-MDRD 74; Glucose 118 mg/dL (83-110); Potassium 4.6 mmol/L (3.5-5.1); Sodium 137 mmol/L (136-145)
[2019-11-30] MEDS: Ketorolac Tromethamine 30 MG/ML VIAL IVP SCH ×3 (06:19→17:28)
[2019-11-30] MEDS: CEFAZOLIN 2 GM in Premix Bag 1 BAG IVPB SCH (06:19)
[2019-11-30] MEDS: Sodium Chloride 0.9% 1,000 ML IV SCH (06:25)
[2019-11-30 06:51] VITALS: BMI 32.0
--- NOTE | 2019-11-30 07:14 | RAD ---
CHEST 1 VIEW: Date: 11/30/2019 INDICATION: 74-year-old female with open heart surgery. COMPARISON: Prior exam dated 11/09/2019. IMPRESSION: Right-sided subclavian central venous catheter and left-sided thoracostomy tube are unchanged. Mild c ardiomegaly and pulmonary vascular congestion remains. There is a tiny left pleural effusion that is stable. Right lung is clear. No pneumothorax is evident. POS: BH
[2019-11-30] MEDS: Nebivolol HCl 5 MG TAB PO SCH (08:17)
[2019-11-30] MEDS: Clopidogrel Bisulfate 75 MG TAB PO SCH (08:17)
[2019-11-30] MEDS: Aspirin Chewable 81 MG TAB PO SCH (08:17)
[2019-11-30] MEDS: Ezetimibe 10 MG TAB PO SCH (08:18)
[2019-11-30] MEDS: Magnesium 2 GM/50 ML 2 GM in Premix Bag 1 BAG IVPB SCH (08:18)
--- NOTE | 2019-11-30 08:25 | OP ---
DATE OF PROCEDURE: 11/29/2019 PREOPERATIVE DIAGNOSES: Coronary artery disease/hypertension/status post left anterior descending and diagonal stenting with recurrence. POSTOPERATIVE DIAGNOSES: Coronary artery disease/hypertension/status post left anterior descending and diagonal stenting with recurrence. PROCEDURES PERFORMED: Off-pump coronary artery bypass grafting x2 - 1. Left internal mammary artery to 1.25 mm mid left anterior descending - good conduit and small target. 2. Reverse saphenous vein to 1.5 mm diagonal - good conduit and target. RECORDS AND TAPE RECORDINGS ENGINEER: Lucas Menjivar MD ANESTHESIA: General endotracheal, Dr. Naeem Santos. DRAINS: 24-Romanian chest tubes x2. DRIPS: None. TRANSFUSIONS: None. DESCRIPTION OF PROCEDURE: After consent was obtained, the patient was brought to the operating room and placed in supine position on the operating table. Appropriate anesthetic monitoring was placed and general endotracheal anesthesia was induced. Greater saphenous vein was harvested from the left lower extremity using skip incisions. Median sternotomy was performed. Left internal mammary artery was harvested as a pedicle graft. The patient was systemically heparinized. Distal pedicle was divided and infused with papaverine. Thymic fat and pericardium were divided with electrocautery. Pericardial stay sutures were placed. Heart was positioned for diagonal bypass, utilizing the Octopus retractor. Proximal control was obtained with vessel loop. The artery was incised and a running 7-0 Prolene suture and anastomosis was created between saphenous vein and diagonal. Anastomosis was tested and was hemostatic. Heart was positioned for LAD bypass. Proximal control was obtained with vessel loops. The mammary artery was anastomosed to the LAD with running 7-0 Prolene suture. On release of mammary clamps, good of the anastomosis and good distal flow. Pedicle was secured with interrupted 6-0 Prolene suture. Pressure was dropped down into the 80s. Partial occluding clamp was placed on the aorta. Saphenous vein was anastomosed to the aorta with running 6-0 Prolene suture. Partial occluding clamp was removed and graft was deaired. Anastomoses were inspected for hemostasis, which was good. Protamine was administered. 24-Romanian chest tubes x2 were placed in mediastinum. Vancomycin paste was placed on the sternal edges. After adequate hemostasis had been obtained, sternum was closed with #7 wire. Sternum was treated with platelet-rich plasma, wires were twisted and buried. Wounds were irrigated. A peristernal block was performed with 0.5% Marcaine mixed with Decadron. The wounds were then treated with platelet-poor plasma and closed in multiple layers. Needle, sponge, and instrument counts were all reported as correct at the end of the procedure. The patient tolerated the procedure well, was transferred to the intensive care unit in stable, but critical condition. Job ID: [id number]
[2019-11-30] MEDS ORDERED: Aspirin 325 MG TAB PO SCH (09:00)
--- NOTE | 2019-11-30 09:49 | PDOC.HOSPP ---
- Subjective Encounter Date: 11/30/19 Encounter Time: 09:48 Subjective: Pt reports she feels well today. Walked this am with PT. Reports mild pain with inspiration, improved from yesterday since chest tubes are now out. Denies chest pain, abdominal pain. No BM, but passing flatus. No other complaints or concerns. No overnight events. Chart and medications reviewed. - Objective Vital Signs & Weight: Vital Signs (12 hours) Temp Pulse Ox 11/30/19 08:00 97.9 F 99 Weight Weight 198 lb 6.656 oz Most Recent Monitor Data Heart Rate from ECG 89 NIBP 117/78 NIBP BP-Mean 91 Respiration from ECG 20 SpO2 100 I&O: 11/29/19 11/30/19 12/01/19 06:59 06:59 06:59 Intake Total 720 2919 50 Output Total 1240 20 Balance 720 1679 30 Result Diagrams: 11/30/19 04:03 11/30/19 04:03 Additional Labs: Accuchecks 11/30/19 11/30/19 11/30/19 06:35 05:11 03:04 POC Glucose 130 H 118 H 123 H 11/30/19 11/30/19 11/30/19 01:56 01:03 00:02 POC Glucose 123 H 145 H 134 H 11/29/19 11/29/19 11/29/19 23:02 22:07 21:08 POC Glucose 137 H 105 112 H 11/29/19 11/29/19 11/29/19 20:18 18:52 17:42 POC Glucose 111 H 130 H 131 H 11/29/19 11/29/19 11/29/19 16:21 15:10 14:00 POC Glucose 159 H 107 110 11/29/19 11/29/19 11/29/19 12:59 12:10 10:56 POC Glucose 118 H 118 H 169 H 11/29/19 09:58 POC Glucose 154 H Radiology Reviewed by me: Yes (CXR) Hospitalist ROS - Review of Systems Constitutional: denies: fever, chills, sweats, weakness, malaise, other Eyes: denies: vision change ENT: denies: mouth pain, throat pain Respiratory: reports: pleuritic pain. denies: cough, shortness of breath, hemoptysis, sputum, wheezing Cardiovascular: reports: chest pain (Over sternum). denies: palpitations, edema Gastrointestinal: denies: nausea, vomiting, abdominal pain, diarrhea Genitourinary: denies: dysuria Musculoskeletal: denies: neck pain, back pain Skin: denies: rash Neurological: denies: weakness, numbness, change in speech, confusion - Medication Medications: Active Medications Generic Name Dose Route Start Last Admin Trade Name Freq PRN Reason Stop Dose Admin Acetaminophen 650 mg 11/29/19 10:21 11/30/19 01:47 Tylenol PO 650 mg Q6H PRN Administration Headache/Fever Or Mild Pain Albumin Human 12.5 gm 11/29/19 10:21 11/29/19 11:00 Albumin 5% IVPB 11/30/19 10:22 12.5 gm Q6H PRN Administration To Maintain SBP> 90 mmHG Aspirin 81 mg 11/30/19 09:00 11/30/19 08:17 Aspirin Chewable PO 81 mg DAILY WOOD Administration Clopidogrel Bisulfate 75 mg 11/30/19 09:00 11/30/19 08:17 Plavix PO 75 mg DAILY WOOD Administration Ezetimibe 10 mg 11/30/19 09:00 11/30/19 08:18 Zetia PO 10 mg DAILY WOOD Administration Hetastarch/Sodium Chloride 500 mls @ 0 mls/hr 11/29/19 10:21 11/29/19 15:08 Hespan IVPB 11/30/19 10:18 500 mls PRN PRN Administration To Maintain SBP > 90mmHg As Directed Magnesium Sulfate 2 gm/ Device 50 mls @ 50 mls/hr 11/30/19 09:00 11/30/19 08: 18 IVPB 12/01/19 09:59 50 mls QAM WOOD Administration Ketorolac Tromethamine 30 mg 11/29/19 12:00 11/30/19 06:19 Toradol IVP 12/02/19 12:01 30 mg Q6HR WOOD Administration Nebivolol 5 mg 11/30/19 09:00 11/30/19 08:17 Bystolic PO 5 mg DAILY WOOD Administration Pantoprazole Sodium 40 mg 11/30/19 09:00 11/30/19 08:17 Protonix PO 40 mg BID WOOD Administration Potassium Chloride 20 meq 11/29/19 10:21 11/29/19 11:52 Kcl IVPB 20 meq PRN PRN Administration K level </= 4.0 Tramadol HCl 50 mg 11/29/19 10:21 11/29/19 21:59 Ultram PO 50 mg Q6H PRN Administration Moderate Pain (4-6) Tramadol HCl 100 mg 11/29/19 10:21 11/30/19 04:56 Ultram PO 100 mg Q6H PRN Administration Severe Pain (7-10) - Exam General Appearance: NAD, awake alert Eye: anicteric sclera ENT: normocephalic atraumatic, moist mucosa Neck: supple, symmetric, no JVD, no carotid bruit Heart: RRR, no murmur, no gallops, no rubs, normal peripheral pulses Respiratory: rales (at bilateral bases) Gastrointestinal: soft, non-tender, non-distended, normal bowel sounds, no palpable masses, no hepatomegaly, no splenomegaly, no bruit Extremities: no cyanosis, no clubbing, no edema Skin: normal turgor, no lesions, no rashes Neurological: normal sensation to touch, no weakness, no focal deficits Musculoskeletal: normal tone, normal strength, no muscle wasting Psychiatric: normal affect, normal behavior, A&O x 3 Hosp A/P (1) S/P coronary artery bypass graft x 2 Code(s): Z95.1 - PRESENCE OF AORTOCORONARY BYPASS GRAFT Status: Acute (2) CAD (coronary artery disease) Code(s): I25.10 - ATHSCL HEART DISEASE OF [place] CORONARY ARTERY W/O ANG PCTRS Status: Chronic Qualifiers: Coronary Disease-Associated Artery/Lesion type: [place] artery [place] vs. transplanted heart: [place] heart Associated angina: without angina Qualified Code(s): I25.10 - Atherosclerotic heart disease of [place] coronary artery without angina pectoris (3) Type 2 diabetes mellitus Status: Acute (4) HLD (hyperlipidemia) Code(s): E78.5 - HYPERLIPIDEMIA, UNSPECIFIED Status: Chronic Qualifiers: Hyperlipidemia type: unspecified Qualified Code(s): E78.5 - Hyperlipidemia , unspecified (5) HTN (hypertension) Code(s): I10 - ESSENTIAL (PRIMARY) HYPERTENSION Status: Chronic Qualifiers: Hypertension type: essential hypertension Qualified Code(s): I10 - Essential (primary) hypertension (6) Hypothyroidism Code(s): E03.9 - HYPOTHYROIDISM, UNSPECIFIED Status: Chronic Qualifiers: Hypothyroidism type: unspecified Qualified Code(s): E03.9 - Hypothyroidism , unspecified - Plan 74 year old female with PMHx of CAD w/stents, HTN, HLD, T2DM, COPD, CKD who presented with unstable angina now s/p 2 vessel CABG performed on 11/29/[address] Henderson. S/p CABG 2 vessel Pt underwent 2 vessel CABG on 11/29/19 for unstable angina, now POD #1. Chest tubes removed today. Initially on levophed post-op, now weaned off this am. SBP 120s. Repeat CXR shows mild L infiltrate, IS encouraged will continue to monitor. Sinha in place with UOP 890 in 24 hrs. Received albumin this am. Will continue to monitor. -POD#1 -Albumin for fluid repletion -Encourage IS, on 2L O2 -Monitor UOP -Toradol, tramadol for pain -Bowel regimen -Trend and replete electrolytes CAD Follows with Dr. Starr. -ASA 81 mg -Atorvastatin 40 mg -Plavix 75 mg -Losartan 25 mg if BP allows -Bystolic 5 mg if BP allows HLD -Atorvastatin 40 mg -Zetia 10 mg COPD Hx COPD and MARCELLUS. Uses CPAP at home. -Duonebs PRN -CPAP at night T2DM: On home metformin, held during admission. On ISS. Hypothyroidism -Cont. home levothyroxine 50 mcg daily DVT prophylaxis with SCDs and DORA flood Case discussed with attending physician, Dr. Cadet. I have discussed pertinent hx/PE/labs/radiographs with ALEXA Vance regarding s/p CABG/CAD. PE: LCTAB, CV: S1, S2, ABD: rounded, soft, +BS, SKIN: intact sternal chest incision, EXT: no edema. Continue routine post-CABG protocol. Dulcolax for constipation, OOB with Cardiac Rehab. Please see progress note for full details/mgmt.
[2019-11-30] MEDS ORDERED: Dextrose 50% Abboject 50 ML SYRINGE SLOW IVP PRN (11:12)
[2019-11-30] MEDS ORDERED: Dextrose 5% in Water 1,000 ML IV PRN (11:12)
--- NOTE | 2019-11-30 12:02 | PDOC.CPN ---
- Subjective Date: 11/30/19 Time: 12:01 Interval history: She is doing a lot better. Her chest tubes are out. She walked with PT without issues but felt her legs were weak. She is passing gas. - Review of Systems General: reports: fatigue. denies: fever/chills, weight/appetite/sleep changes , night sweats Respiratory: denies: cough, congestion, shortness of breath, exercise intolerance Cardiovascular: reports: edema. denies: chest pain, palpitation, paroxysmal nocturnal dyspnea, orthopnea Gastrointestinal: denies: nausea, vomiting, diarrhea, constipation, abd pain, GI bleeding Musculoskeletal: denies: pain, tenderness, stiffness, swelling, arthritis/ arthralgias Neurological: denies: numbness, syncope, seizure, weakness - Objective Allergies/Adverse Reactions: Allergies Allergy/AdvReac Type Severity Reaction Status Date / Time morphine Allergy Intermediate ITCHING Verified 03/22/19 17:09 AUDIE Inhibitors Allergy COUGH Verified 03/22/19 17:09 fentanyl AdvReac Severe GIVEN A Verified 03/22/19 17:09 HIGH DOSE AND HEART STOPPPED Visit Medications: Current Medications Acetaminophen (Tylenol) 650 mg PO Q6H PRN PRN Reason: Headache/Fever Or Mild Pain Last Admin: 11/30/19 11:19 Dose: 650 mg Al Hydroxide/Mg Hydroxide (Maalox) 30 ml PO Q4H PRN PRN Reason: Indigestion Albuterol/Ipratropium (Duoneb) 3 ml NEB Q6H PRN PRN Reason: SHORTNESS OF BREATH Aspirin (Aspirin Chewable) 81 mg PO DAILY [facility] Last Admin: 11/30/19 08:17 Dose: 81 mg Atorvastatin Calcium (Lipitor) 40 mg PO HS [facility] Bisacodyl (Dulcolax) 10 mg PO Q12H PRN PRN Reason: Constipation Bisacodyl (Dulcolax) 10 mg MA Q12H PRN PRN Reason: Constipation Clopidogrel Bisulfate (Plavix) 75 mg PO DAILY [facility] Last Admin: 11/30/19 08:17 Dose: 75 mg Dextrose/Water (Dextrose 50%) 25 gm SLOW IVP PRN PRN PRN Reason: Hypoglycemia Ezetimibe (Zetia) 10 mg PO DAILY [facility] Last Admin: 11/30/19 08:18 Dose: 10 mg Fentanyl (Sublimaze) 25 mcg SLOW IVP Q2H PRN PRN Reason: Moderate Pain (4-6) Stop: 12/01/19 10:18 Fentanyl (Sublimaze) 50 mcg SLOW IVP Q2H PRN PRN Reason: Severe Pain (7-10) Stop: 12/01/19 10:18 Gabapentin (Neurontin) 600 mg PO HS [facility] Glucagon (Glucagon) 1 mg IM PRN PRN PRN Reason: Hypoglycemia Guaifenesin/Dextromethorphan (Robitussin Dm) 15 ml PO Q4H PRN PRN Reason: Cough Hydralazine HCl (Apresoline) 10 mg SLOW IVP Q6H PRN PRN Reason: To Maintain SBP< 140mmHG Magnesium Sulfate 2 gm/ Device 50 mls @ 50 mls/hr IVPB QAM [facility] Stop: 12/01/19 09:59 Last Admin: 11/30/19 08:18 Dose: 50 mls Dextrose/Water (D5w) 1,000 mls @ 0 mls/hr IV .Q0M PRN PRN Reason: Hypoglycemia Insulin Human Lispro (Humalog) 0 units SC .MILD SLIDING SCALE PRN PRN Reason: Mild Correctional Scale Ketorolac Tromethamine (Toradol) 30 mg IVP Q6HR [facility] Stop: 12/02/19 12:01 Last Admin: 11/30/19 06:19 Dose: 30 mg Levothyroxine Sodium (Synthroid) 50 mcg PO 0600 [facility] Nebivolol (Bystolic) 5 mg PO DAILY [facility] Last Admin: 11/30/19 08:17 Dose: 5 mg Ondansetron HCl (Zofran) 4 mg IVP Q6H PRN PRN Reason: Nausea/Vomiting Pantoprazole Sodium (Protonix) 40 mg PO BID [facility] Last Admin: 11/30/19 08:17 Dose: 40 mg Potassium Chloride (Kcl) 20 meq IVPB PRN PRN PRN Reason: K level </= 4.0 Last Admin: 11/29/19 11:52 Dose: 20 meq Sodium Chloride (Flush - Normal Saline) 10 ml IVF PRN PRN PRN Reason: Saline Flush Tramadol HCl (Ultram) 50 mg PO Q6H PRN PRN Reason: Moderate Pain (4-6) Last Admin: 11/29/19 21:59 Dose: 50 mg Tramadol HCl (Ultram) 100 mg PO Q6H PRN PRN Reason: Severe Pain (7-10) Last Admin: 11/30/19 04:56 Dose: 100 mg Vital Signs & Weight: Vital Signs Temp Pulse Pulse BP BP Pulse Ox Pulse Ox 11/30/19 08:30 99 100 117/78 140/73 93 L 11/30/19 08:00 97.9 F 99 Pulse Ox 11/30/19 08:30 90 L 11/30/19 08:00 Weight 198 lb 6.656 oz - Physical Exam General: alert & oriented x3 HEENT: mucus membranes moist Neck: supple neck Cardiac: regular rate and rhythm Lungs: clear to auscultation Neuro: grossly intact Abdomen: active bowel sounds Extremities: 1+ LE edema Skin: clear Musculoskeletal: no pain - Labs Result Diagrams: 11/30/19 04:03 11/30/19 04:03 Troponin/CKMB Troponin I 0.010 ng/mL (< 0.028) 11/24/19 23:23 - Telemetry Sinus rhythms and dysrhythmias: sinus rhythm - Assessment/Plan Assessment/Plan: 1. Unstable angina 2. CAD 3. S/P CABG x 2 LOGAN to LAD, SVG to Diagonal. Off pump procedure. PLAN: - Off all pressors and innotropes. - ASA and statin for life. - On BB, will start ACEI in next few days if BP allows. - Ok for transfer to telemetry from my standpoint.
[2019-11-30] MEDS ORDERED: Nitroglycerin 0.4 MG TAB (25 Tab Bottle) SL PRN (14:28)
[2019-11-30] MEDS ORDERED: Potassium Chloride 10 MEQ TAB PO SCH (14:28)
[2019-11-30] MEDS ORDERED: diphenhydrAMINE 25 MG CAP PO PRN (14:28)
[2019-11-30] MEDS ORDERED: Zolpidem Tartrate 5 MG TAB PO PRN (14:28)
[2019-11-30] MEDS ORDERED: Furosemide 40 MG/4 ML VIAL SLOW IVP SCH (14:28)
[2019-11-30] MEDS ORDERED: Mineral Oil ENEMA PR PRN (14:28)
[2019-11-30] MEDS: Gabapentin 300 MG CAP PO SCH (20:34)
[2019-11-30] MEDS: Bisacodyl 5 MG TAB PO PRN (20:34)
[2019-11-30] MEDS: Atorvastatin Calcium 40 MG TAB PO SCH (20:34)
[2019-12-01] MEDS: Ketorolac Tromethamine 30 MG/ML VIAL IVP SCH ×4 (00:08→17:33)
[2019-12-01] MEDS: Levothyroxine Sodium 50 MCG TAB PO SCH (05:43)
[2019-12-01] MEDS: Furosemide 40 MG TAB PO SCH (09:10)
[2019-12-01] MEDS: Aspirin Chewable 81 MG TAB PO SCH (09:10)
[2019-12-01] MEDS: Potassium Chloride 10 MEQ TAB PO SCH (09:10)
[2019-12-01] MEDS: Ezetimibe 10 MG TAB PO SCH (09:10)
[2019-12-01] MEDS: Magnesium 2 GM/50 ML 2 GM in Premix Bag 1 BAG IVPB SCH (09:11)
[2019-12-01] MEDS: Nebivolol HCl 5 MG TAB PO SCH (09:11)
[2019-12-01] MEDS: Clopidogrel Bisulfate 75 MG TAB PO SCH (09:11)
[2019-12-01] MEDS: Bisacodyl 5 MG TAB PO PRN (09:28)
--- NOTE | 2019-12-01 14:57 | PDOC.HOSPP ---
- Subjective Encounter Date: 12/01/19 Encounter Time: 14:55 Subjective: f/u for CAD s/p CABG x 2v POD #2. Feels ok overall. Ambulated with PT. No fever or chills. - Objective Vital Signs & Weight: Vital Signs (12 hours) Temp Pulse Pulse Pulse Resp BP BP 12/01/19 14:02 105 H 95 118/72 108/55 L 12/01/19 11:50 97.7 F 96 20 12/01/19 09:02 98.6 F 94 20 12/01/19 04:00 98.7 F 90 20 BP Pulse Ox Pulse Ox Pulse Ox 12/01/19 14:02 96 92 L 12/01/19 11:50 117/59 L 12/01/19 09:02 94/52 L 91 L 12/01/19 04:00 110/58 L 93 L Weight Weight 196 lb Most Recent Monitor Data Heart Rate from ECG 96 NIBP 118/62 NIBP BP-Mean 80 Respiration from ECG 42 SpO2 96 I&O: 11/30/19 12/01/19 12/02/19 06:59 06:59 06:59 Intake Total 2919 823 Output Total 1240 1260 Balance 1679 437 Result Diagrams: 11/30/19 04:03 11/30/19 04:03 Additional Labs: Accuchecks 11/30/19 11/30/19 11/30/19 17:51 11:27 04:03 POC Glucose 147 H 137 H 129 H Laboratory Tests 11/27/19 11/29/19 11/29/19 04:38 10:51 16:16 WBC 13.8 H Hgb 9.5 L 8.9 L Hemoglobin A1c 5.4 EKG Reviewed by me: Yes (Tele - SR) Hospitalist ROS - Medication Medications: Active Medications Generic Name Dose Route Start Last Admin Trade Name Freq PRN Reason Stop Dose Admin Acetaminophen 650 mg 11/29/19 10:21 11/30/19 11:19 Tylenol PO 650 mg Q6H PRN Administration Headache/Fever Or Mild Pain Aspirin 81 mg 11/30/19 09:00 12/01/19 09:10 Aspirin Chewable PO 81 mg DAILY [facility] Administration Atorvastatin Calcium 40 mg 11/30/19 21:00 11/30/19 20:34 Lipitor PO 40 mg HS [facility] Administration Bisacodyl 10 mg 11/29/19 10:21 12/01/19 09:28 Dulcolax PO 10 mg Q12H PRN Administration Constipation Clopidogrel Bisulfate 75 mg 11/30/19 09:00 12/01/19 09:11 Plavix PO 75 mg DAILY [facility] Administration Ezetimibe 10 mg 11/30/19 09:00 12/01/19 09:10 Zetia PO 10 mg DAILY [facility] Administration Furosemide 40 mg 12/01/19 07:30 12/01/19 09:10 Lasix PO 40 mg DAILY-AC [facility] Administration Gabapentin 600 mg 11/30/19 21:00 11/30/19 20:34 Neurontin PO 600 mg HS [facility] Administration Ketorolac Tromethamine 30 mg 11/29/19 12:00 12/01/19 12:10 Toradol IVP 12/02/19 12:01 30 mg Q6HR [facility] Administration Levothyroxine Sodium 50 mcg 12/01/19 06:00 12/01/19 05:43 Synthroid PO 50 mcg 0600 [facility] Administration Nebivolol 5 mg 11/30/19 09:00 12/01/19 09:11 Bystolic PO 5 mg DAILY [facility] Administration Pantoprazole Sodium 40 mg 11/30/19 09:00 12/01/19 09:10 Protonix PO 40 mg BID [facility] Administration Potassium Chloride 20 meq 11/29/19 10:21 11/29/19 11:52 Kcl IVPB 20 meq PRN PRN Administration K level </= 4.0 Potassium Chloride 10 meq 12/01/19 08:00 12/01/19 09:10 Klor-Con 10 PO 10 meq QAM-WM [facility] Administration Tramadol HCl 50 mg 11/29/19 10:21 11/29/19 21:59 Ultram PO 50 mg Q6H PRN Administration Moderate Pain (4-6) Tramadol HCl 100 mg 11/29/19 10:21 11/30/19 04:56 Ultram PO 100 mg Q6H PRN Administration Severe Pain (7-10) - Exam General Appearance: NAD, awake alert Eye: PERRL, anicteric sclera ENT: normocephalic atraumatic, no oropharyngeal lesions Neck: supple, symmetric, no JVD, no thyromegaly, no lymphadenopathy Heart: RRR, no gallops, no rubs, normal peripheral pulses Heart - other findings: S1, S2 Respiratory: CTAB, no wheezes, no rales, no ronchi, normal chest expansion Gastrointestinal: soft, non-tender, non-distended, normal bowel sounds, no palpable masses Extremities: no cyanosis, no clubbing, no edema Skin: normal turgor, no lesions Neurological: cranial nerve grossly intact, no new deficit Musculoskeletal: normal tone, generalized weakness Psychiatric: normal affect, A&O x 3 Hosp A/P (1) CAD (coronary artery disease) Code(s): I25.10 - ATHSCL HEART DISEASE OF [place] CORONARY ARTERY W/O ANG PCTRS Status: Chronic Qualifiers: Coronary Disease-Associated Artery/Lesion type: [place] artery [place] vs. transplanted heart: [place] heart Associated angina: without angina Qualified Code(s): I25.10 - Atherosclerotic heart disease of [place] coronary artery without angina pectoris Plan: Continue ASA/Plavix/Lipitor, Cardiac rehab (2) S/P coronary artery bypass graft x 2 Code(s): Z95.1 - PRESENCE OF AORTOCORONARY BYPASS GRAFT Status: Acute Plan: POD #2, continue routine post-CABG protocol, ASA/Plavix (3) Type 2 diabetes mellitus Status: Chronic Plan: ISS, resume Metformin, Serial accuchecks (4) HLD (hyperlipidemia) Code(s): E78.5 - HYPERLIPIDEMIA, UNSPECIFIED Status: Chronic Qualifiers: Hyperlipidemia type: unspecified Qualified Code(s): E78.5 - Hyperlipidemia , unspecified (5) HTN (hypertension) Code(s): I10 - ESSENTIAL (PRIMARY) HYPERTENSION Status: Chronic Qualifiers: Hypertension type: essential hypertension Qualified Code(s): I10 - Essential (primary) hypertension (6) Hypothyroidism Code(s): E03.9 - HYPOTHYROIDISM, UNSPECIFIED Status: Chronic Qualifiers: Hypothyroidism type: unspecified Qualified Code(s): E03.9 - Hypothyroidism , unspecified - Plan PT/OT, social media assistant, respiratory therapy, out of bed/ambulate, DVT proph w/ SCDs 74 year old female with PMHx of CAD w/stents, HTN, HLD, T2DM, COPD, CKD who presented with unstable angina now s/p 2 vessel CABG performed on 11/29/[address] Henderson. S/p CABG 2 vessel Pt underwent 2 vessel CABG on 11/29/19 for unstable angina, now POD #1. Chest tubes removed today. Initially on levophed post-op, now weaned off this am. SBP 120s. Repeat CXR shows mild L infiltrate, IS encouraged will continue to monitor. Sinha in place with UOP 890 in 24 hrs. -POD#2 -Albumin for fluid repletion -Encourage IS, on 2L O2 -Monitor UOP -Toradol, tramadol for pain -Bowel regimen -Trend and replete electrolytes CAD Follows with Dr. Starr. -ASA 81 mg -Atorvastatin 40 mg -Plavix 75 mg -Losartan 25 mg if BP allows -Bystolic 5 mg if BP allows HLD -Atorvastatin 40 mg -Zetia 10 mg COPD Hx COPD and MARCELLUS. Uses CPAP at home. -Duonebs PRN -CPAP at night T2DM: On home metformin, held during admission. On ISS. Hypothyroidism -Cont. home levothyroxine 50 mcg daily DVT prophylaxis with ADELAs and DORA flood.
--- NOTE | 2019-12-01 17:54 | PDOC.CPN ---
- Subjective Date: 12/01/19 Time: 17:52 Interval history: She is doing a lot better today. Her chest ia not hurting much. She wore her CPAP last night. She is using her IS. No BM yet but passing gas. - Review of Systems General: denies: fever/chills, weight/appetite/sleep changes, night sweats, fatigue Respiratory: reports: exercise intolerance. denies: cough, congestion, shortness of breath Cardiovascular: reports: edema. denies: chest pain, palpitation, paroxysmal nocturnal dyspnea, orthopnea Gastrointestinal: denies: nausea, vomiting, diarrhea, constipation, abd pain, GI bleeding Musculoskeletal: denies: pain, tenderness, stiffness, swelling, arthritis/ arthralgias Neurological: denies: numbness, syncope, seizure, weakness - Objective Allergies/Adverse Reactions: Allergies Allergy/AdvReac Type Severity Reaction Status Date / Time morphine Allergy Intermediate ITCHING Verified 03/22/19 17:09 AUDIE Inhibitors Allergy COUGH Verified 03/22/19 17:09 fentanyl AdvReac Severe GIVEN A Verified 03/22/19 17:09 HIGH DOSE AND HEART STOPPPED Visit Medications: Current Medications Acetaminophen (Tylenol) 650 mg PO Q6H PRN PRN Reason: Headache/Fever Or Mild Pain Last Admin: 11/30/19 11:19 Dose: 650 mg Al Hydroxide/Mg Hydroxide (Maalox) 30 ml PO Q4H PRN PRN Reason: Indigestion Albuterol/Ipratropium (Duoneb) 3 ml NEB Q6H PRN PRN Reason: SHORTNESS OF BREATH Aspirin (Aspirin Chewable) 81 mg PO DAILY [facility] Last Admin: 12/01/19 09:10 Dose: 81 mg Atorvastatin Calcium (Lipitor) 40 mg PO HS [facility] Last Admin: 11/30/19 20:34 Dose: 40 mg Bisacodyl (Dulcolax) 10 mg PO Q12H PRN PRN Reason: Constipation Last Admin: 12/01/19 09:28 Dose: 10 mg Bisacodyl (Dulcolax) 10 mg ID Q12H PRN PRN Reason: Constipation Clopidogrel Bisulfate (Plavix) 75 mg PO DAILY [facility] Last Admin: 12/01/19 09:11 Dose: 75 mg Dextrose/Water (Dextrose 50%) 25 gm SLOW IVP PRN PRN PRN Reason: Hypoglycemia Diphenhydramine HCl (Benadryl) 25 mg PO Q6H PRN PRN Reason: Itching & Insomnia or Swapnil Dean Ezetimibe (Zetia) 10 mg PO DAILY [facility] Last Admin: 12/01/19 09:10 Dose: 10 mg Fentanyl (Sublimaze) 25 mcg SLOW IVP Q2H PRN PRN Reason: Moderate Pain (4-6) Stop: 12/01/19 10:18 Fentanyl (Sublimaze) 50 mcg SLOW IVP Q2H PRN PRN Reason: Severe Pain (7-10) Stop: 12/01/19 10:18 Furosemide (Lasix) 40 mg PO DAILY-AC [facility] Last Admin: 12/01/19 09:10 Dose: 40 mg Gabapentin (Neurontin) 600 mg PO HS [facility] Last Admin: 11/30/19 20:34 Dose: 600 mg Guaifenesin/Dextromethorphan (Robitussin Dm) 15 ml PO Q4H PRN PRN Reason: Cough Hydralazine HCl (Apresoline) 10 mg SLOW IVP Q6H PRN PRN Reason: To Maintain SBP< 140mmHG Dextrose/Water (D5w) 1,000 mls @ 0 mls/hr IV .Q0M PRN PRN Reason: Hypoglycemia Insulin Human Lispro (Humalog) 0 units SC .MILD SLIDING SCALE PRN PRN Reason: Mild Correctional Scale Ketorolac Tromethamine (Toradol) 30 mg IVP Q6HR [facility] Stop: 12/02/19 12:01 Last Admin: 12/01/19 17:33 Dose: 30 mg Levothyroxine Sodium (Synthroid) 50 mcg PO 0600 [facility] Last Admin: 12/01/19 05:43 Dose: 50 mcg Magnesium Hydroxide (Milk Of Magnesium) 30 ml PO Q12H PRN PRN Reason: Constipation Metformin HCl (Glucophage) 500 mg PO BID [facility] Mineral Oil (Fleet Mineral Oil) 133 ml ID DAILYPRN PRN PRN Reason: Constipation Nebivolol (Bystolic) 5 mg PO DAILY [facility] Last Admin: 12/01/19 09:11 Dose: 5 mg Nitroglycerin (Nitrostat) 0.4 mg SL Q5MIN PRN PRN Reason: Chest Pain Ondansetron HCl (Zofran) 4 mg IVP Q6H PRN PRN Reason: Nausea/Vomiting Pantoprazole Sodium (Protonix) 40 mg PO BID [facility] Last Admin: 12/01/19 09:10 Dose: 40 mg Potassium Chloride (Kcl) 20 meq IVPB PRN PRN PRN Reason: K level </= 4.0 Last Admin: 11/29/19 11:52 Dose: 20 meq Potassium Chloride (Klor-Con 10) 10 meq PO QAM-WM [facility] Last Admin: 12/01/19 09:10 Dose: 10 meq Sodium Chloride (Flush - Normal Saline) 10 ml IVF PRN PRN PRN Reason: Saline Flush Tramadol HCl (Ultram) 50 mg PO Q6H PRN PRN Reason: Moderate Pain (4-6) Last Admin: 11/29/19 21:59 Dose: 50 mg Tramadol HCl (Ultram) 100 mg PO Q6H PRN PRN Reason: Severe Pain (7-10) Last Admin: 11/30/19 04:56 Dose: 100 mg Zolpidem Tartrate (Ambien) 5 mg PO HSPRN PRN PRN Reason: Insomnia Vital Signs & Weight: Vital Signs Temp Pulse Pulse Pulse Resp BP BP 12/01/19 14:02 105 H 95 118/72 108/55 L 12/01/19 11:50 97.7 F 96 20 12/01/19 09:02 98.6 F 94 20 BP Pulse Ox Pulse Ox Pulse Ox 12/01/19 14:02 96 92 L 12/01/19 11:50 117/59 L 12/01/19 09:02 94/52 L 91 L Weight 196 lb - Physical Exam General: alert & oriented x3 HEENT: mucus membranes moist Neck: supple neck Cardiac: regular rate and rhythm Lungs: normal breath sounds Neuro: grossly intact Abdomen: active bowel sounds Extremities: no edema Skin: clear Musculoskeletal: no pain - Labs Result Diagrams: 11/30/19 04:03 11/30/19 04:03 Troponin/CKMB Troponin I 0.010 ng/mL (< 0.028) 11/24/19 23:23 - Telemetry Sinus rhythms and dysrhythmias: sinus rhythm - Assessment/Plan Assessment/Plan: 1. Unstable angina 2. CAD 3. S/P CABG x 2 LOGAN to LAD, SVG to Diagonal. Off pump procedure. PLAN: - ASA and statin for life. - On BB - BP still too low for ACEI. - Increase PT as tolerated.
[2019-12-01] MEDS: Milk Of Magnesia 30 ML UDCUP PO PRN (18:45)
[2019-12-01] MEDS: metFORMIN 500 MG TAB PO SCH (20:54)
[2019-12-01] MEDS: Atorvastatin Calcium 40 MG TAB PO SCH (20:54)
[2019-12-01] MEDS: Gabapentin 300 MG CAP PO SCH (20:54)
[2019-12-02] MEDS: Ketorolac Tromethamine 30 MG/ML VIAL IVP SCH ×3 (00:11→12:08)
[2019-12-02] MEDS: Acetaminophen 325 MG TAB PO PRN (00:28)
[2019-12-02 03:28] LABS: #Eosinphils 0.3 thou/uL (0.0-0.7); #Lymphocytes 1.4 thou/uL (1.20-3.40); #Monocytes 1.5 thou/uL (0.11-0.59); #Neutrophils 10.4 thou/uL (1.40-6.50); %Basophils 0.2 % (0.0-1.0); %Monocytes 10.9 % (0.0-10.0); %Neutrophils 76.9 % (42.0-75.0); Hemoglobin 8.2 g/dL (12.0-16.0); Mean Corpuscular HGB CONC 32.5 g/dL (32.0-36.0); Mean Corpuscular Hemoglobin 31.1 pg (27.0-31.0); Mean Platelet Volume 8.6 fL (7.4-10.4); Platelet Count 315 thou/uL (130-400); RBC Distribution Width 14.1 % (11.5-14.5); Red Blood Cell (RBC) Count 2.63 mill/uL (4.20-5.40); White Blood Cell (WBC) Count 13.6 thou/uL (4.8-10.8)
[2019-12-02 03:46] LABS: Lactic Acid 1.3 mmol/L (0.5-2.2)
[2019-12-02 03:58] LABS: Anion Gap 11 mmol/L (10-20); BUN (Urea Nitrogen) 35 mg/dL (9.8-20.1); Calc. Creatinine Clearance 61 mL/min (70-130); Calcium 8.1 mg/dL (7.8-10.44); Carbon Dioxide 24 mmol/L (23-31); Chloride 108 mmol/L (98-107); Estimated GFR-MDRD 45; Glucose 211 mg/dL (83-110); Potassium 4.6 mmol/L (3.5-5.1); Sodium 138 mmol/L (136-145)
[2019-12-02 05:10] LABS: Bilirubin Negative (Negative); Blood, Urine Negative (Negative); Clarity Clear (Clear); Glucose, Urine (Dipstick) Normal (Negative); Ketone, Urine Negative (Negative); Leukocyte Negative Leu/uL (Negative); Nitrite Negative (Negative); Protein, Urine (Dipstick) 10 mg/dL (Neg-Trace); RBC/HPF 0-3 HPF (0-3); Specific Gravity, Urine 1.026 (1.002-1.036); Squamous Epithelial 0-3 HPF (0-3); Urobilinogen Normal mg/dL (Less than 2); WBC/HPF 0-3 HPF (0-3)
[2019-12-02 05:18] LABS: Bacteria/HPF 1+ HPF (None Seen)
[2019-12-02 05:21] LABS: Urine Culture Reflex Yes Yes
[2019-12-02] MEDS: Levothyroxine Sodium 50 MCG TAB PO SCH (05:36)
[2019-12-02] MEDS: Milk Of Magnesia 30 ML UDCUP PO PRN (05:45)
[2019-12-02] MEDS: HumaLOG 300 UNITS/3 ML VIAL SC PRN ×3 (07:16→17:26)
[2019-12-02] MEDS ORDERED: Metolazone 5 MG TAB PO SCH (08:00)
[2019-12-02] MEDS: Furosemide 40 MG TAB PO SCH (09:12)
[2019-12-02] MEDS: Nebivolol HCl 5 MG TAB PO SCH (09:12)
[2019-12-02] MEDS: Potassium Chloride 10 MEQ TAB PO SCH (09:12)
[2019-12-02] MEDS: Aspirin Chewable 81 MG TAB PO SCH (09:12)
[2019-12-02] MEDS: Ezetimibe 10 MG TAB PO SCH (09:12)
[2019-12-02] MEDS: Clopidogrel Bisulfate 75 MG TAB PO SCH (09:12)
[2019-12-02] MEDS: metFORMIN 500 MG TAB PO SCH ×2 (09:13→21:07)
[2019-12-02] MEDS: Bisacodyl 5 MG TAB PO PRN (12:08)
[2019-12-02] MEDS: Ondansetron PF 4 MG/2 ML Vial IVP PRN ×2 (12:08→17:25)
--- NOTE | 2019-12-02 12:41 | PDOC.CPN ---
- Subjective Date: 12/02/19 Time: 12:39 Interval history: She had a fever last night. Denies SOB, no chest pain, no dysuria. She did have a lot more coughing last night. - Review of Systems General: denies: fever/chills, weight/appetite/sleep changes, night sweats, fatigue Respiratory: denies: cough, congestion, shortness of breath, exercise intolerance Cardiovascular: denies: chest pain, palpitation, edema, paroxysmal nocturnal dyspnea, orthopnea Gastrointestinal: denies: nausea, vomiting, diarrhea, constipation, abd pain, GI bleeding Musculoskeletal: denies: pain, tenderness, stiffness, swelling, arthritis/ arthralgias Neurological: denies: numbness, syncope, seizure, weakness - Objective Allergies/Adverse Reactions: Allergies Allergy/AdvReac Type Severity Reaction Status Date / Time morphine Allergy Intermediate ITCHING Verified 03/22/19 17:09 AUDIE Inhibitors Allergy COUGH Verified 03/22/19 17:09 fentanyl AdvReac Severe GIVEN A Verified 03/22/19 17:09 HIGH DOSE AND HEART STOPPPED Visit Medications: Current Medications Acetaminophen (Tylenol) 650 mg PO Q6H PRN PRN Reason: Headache/Fever Or Mild Pain Last Admin: 12/02/19 00:28 Dose: 650 mg Al Hydroxide/Mg Hydroxide (Maalox) 30 ml PO Q4H PRN PRN Reason: Indigestion Albuterol/Ipratropium (Duoneb) 3 ml NEB Q6H PRN PRN Reason: SHORTNESS OF BREATH Last Admin: 12/01/19 21:20 Dose: 3 ml Aspirin (Aspirin Chewable) 81 mg PO DAILY [facility] Last Admin: 12/02/19 09:12 Dose: 81 mg Atorvastatin Calcium (Lipitor) 40 mg PO HS [facility] Last Admin: 12/01/19 20:54 Dose: Not Given Bisacodyl (Dulcolax) 10 mg PO Q12H PRN PRN Reason: Constipation Last Admin: 12/02/19 12:08 Dose: 10 mg Bisacodyl (Dulcolax) 10 mg NC Q12H PRN PRN Reason: Constipation Clopidogrel Bisulfate (Plavix) 75 mg PO DAILY [facility] Last Admin: 12/02/19 09:12 Dose: 75 mg Dextrose/Water (Dextrose 50%) 25 gm SLOW IVP PRN PRN PRN Reason: Hypoglycemia Diphenhydramine HCl (Benadryl) 25 mg PO Q6H PRN PRN Reason: Itching & Insomnia or Swapnil Dean Ezetimibe (Zetia) 10 mg PO DAILY [facility] Last Admin: 12/02/19 09:12 Dose: 10 mg Furosemide (Lasix) 40 mg PO DAILY-AC [facility] Last Admin: 12/02/19 09:12 Dose: 40 mg Gabapentin (Neurontin) 600 mg PO HS [facility] Last Admin: 12/01/19 20:54 Dose: 600 mg Guaifenesin/Dextromethorphan (Robitussin Dm) 15 ml PO Q4H PRN PRN Reason: Cough Hydralazine HCl (Apresoline) 10 mg SLOW IVP Q6H PRN PRN Reason: To Maintain SBP< 140mmHG Dextrose/Water (D5w) 1,000 mls @ 0 mls/hr IV .Q0M PRN PRN Reason: Hypoglycemia Insulin Human Lispro (Humalog) 0 units SC .MILD SLIDING SCALE PRN PRN Reason: Mild Correctional Scale Last Admin: 12/02/19 12:09 Dose: 3 unit Levothyroxine Sodium (Synthroid) 50 mcg PO 0600 [facility] Last Admin: 12/02/19 05:36 Dose: 50 mcg Magnesium Hydroxide (Milk Of Magnesium) 30 ml PO Q12H PRN PRN Reason: Constipation Last Admin: 12/02/19 05:45 Dose: 30 ml Metformin HCl (Glucophage) 500 mg PO BID [facility] Last Admin: 12/02/19 09:13 Dose: 500 mg Mineral Oil (Fleet Mineral Oil) 133 ml NC DAILYPRN PRN PRN Reason: Constipation Last Admin: 12/02/19 03:20 Dose: 133 ml Nebivolol (Bystolic) 5 mg PO DAILY [facility] Last Admin: 12/02/19 09:12 Dose: 5 mg Nitroglycerin (Nitrostat) 0.4 mg SL Q5MIN PRN PRN Reason: Chest Pain Ondansetron HCl (Zofran) 4 mg IVP Q6H PRN PRN Reason: Nausea/Vomiting Last Admin: 12/02/19 12:08 Dose: 4 mg Pantoprazole Sodium (Protonix) 40 mg PO BID [facility] Last Admin: 12/02/19 09:12 Dose: 40 mg Potassium Chloride (Kcl) 20 meq IVPB PRN PRN PRN Reason: K level </= 4.0 Last Admin: 11/29/19 11:52 Dose: 20 meq Potassium Chloride (Klor-Con 10) 10 meq PO QAM-[facility] Last Admin: 12/02/19 09:12 Dose: 10 meq Sodium Chloride (Flush - Normal Saline) 10 ml IVF PRN PRN PRN Reason: Saline Flush Last Admin: 12/02/19 00:12 Dose: 10 ml Tramadol HCl (Ultram) 50 mg PO Q6H PRN PRN Reason: Moderate Pain (4-6) Last Admin: 11/29/19 21:59 Dose: 50 mg Tramadol HCl (Ultram) 100 mg PO Q6H PRN PRN Reason: Severe Pain (7-10) Last Admin: 11/30/19 04:56 Dose: 100 mg Zolpidem Tartrate (Ambien) 5 mg PO HSPRN PRN PRN Reason: Insomnia Vital Signs & Weight: Vital Signs Temp Pulse Resp BP BP Pulse Ox 12/02/19 07:40 98.1 F 92 16 108/57 L 97 12/02/19 07:09 92 L 12/02/19 03:15 99.9 F H 111 H 20 112/57 L 92 L Weight 197 lb - Physical Exam General: alert & oriented x3 HEENT: mucus membranes moist, normocephaly Neck: midline trachea Cardiac: regular rate and rhythm Lungs: other (Crackles at left base.) Neuro: grossly intact Abdomen: active bowel sounds Extremities: no edema Skin: clear Musculoskeletal: no pain - Labs Result Diagrams: 12/02/19 03:18 12/02/19 03:18 Troponin/CKMB Troponin I 0.010 ng/mL (< 0.028) 11/24/19 23:23 - Telemetry Sinus rhythms and dysrhythmias: sinus rhythm - Assessment/Plan Assessment/Plan: 1. Unstable angina 2. CAD 3. S/P CABG x 2 LOGAN to LAD, SVG to Diagonal. Off pump procedure. 4. Low grade fever yesterday. PLAN: - ASA and statin for life. - On BB - BP still too low for ACEI. - Increase PT as tolerated. - CXR, UA & culture, Blood Culture.
--- NOTE | 2019-12-02 13:51 | RAD ---
EXAM: CHEST ONE VIEW PORTABLE: 12/02/19 HISTORY: Fever. COMPARISON: 11/27/14. FINDINGS: Borderline cardiomegaly with mild vascular congestion and small pleural effusion and minimal bibasila r subsegmental atelectatic changes. IMPRESSION: Some persistent pleural and parenchymal opacity changes in the left base. Borderline heart size. No p neumothorax or other significant new process. POS: OFF
--- NOTE | 2019-12-02 14:31 | PDOC.HOSPP ---
- Subjective Encounter Date: 12/02/19 Encounter Time: 14:30 Subjective: f/u for CAD, s/p 2v CABG POD #3. Had low-grade temp overnight and nauseated today receiving Zofran. + BM x 2 this am. Minimal cough and no SOB. - Objective Vital Signs & Weight: Vital Signs (12 hours) Temp Pulse Resp BP BP Pulse Ox 12/02/19 12:05 98.7 F 98 16 116/56 L 90 L 12/02/19 07:40 98.1 F 92 16 108/57 L 97 12/02/19 07:09 92 L 12/02/19 03:15 99.9 F H 111 H 20 112/57 L 92 L Weight Weight 197 lb Most Recent Monitor Data Heart Rate from ECG 96 NIBP 118/62 NIBP BP-Mean 80 Respiration from ECG 42 SpO2 96 I&O: 12/01/19 12/02/19 12/03/19 06:59 06:59 06:59 Intake Total 823 240 Output Total 1260 Balance -437 240 Result Diagrams: 12/02/19 03:18 12/02/19 03:18 Additional Labs: Accuchecks 12/02/19 12/02/19 12/01/19 11:13 06:09 21:15 POC Glucose 216 H 200 H 183 H Microbiology 12/02/19 05:19 Urine clean catch Urine Culture - Preliminary NO GROWTH AT 12 HOURS Laboratory Tests 11/27/19 11/29/19 11/29/19 04:38 10:51 16:16 WBC 13.8 H Hgb 9.5 L 8.9 L Neutrophils % Hemoglobin A1c 5.4 Lactic Acid 11/30/19 12/02/19 04:03 03:18 WBC 14.7 H Hgb 8.2 L Neutrophils % 83.0 H Hemoglobin A1c Lactic Acid 1.3 Radiology Reviewed by me: Yes (PCXR - small effusion, L basilar atelectasis) EKG Reviewed by me: Yes (Tele - SR) Hospitalist ROS - Medication Medications: Active Medications Generic Name Dose Route Start Last Admin Trade Name Freq PRN Reason Stop Dose Admin Acetaminophen 650 mg 11/29/19 10:21 12/02/19 00:28 Tylenol PO 650 mg Q6H PRN Administration Headache/Fever Or Mild Pain Albuterol/Ipratropium 3 ml 11/29/19 10:21 12/01/19 21:20 Duoneb NEB 3 ml Q6H PRN Administration SHORTNESS OF BREATH Aspirin 81 mg 11/30/19 09:00 12/02/19 09:12 Aspirin Chewable PO 81 mg DAILY WOOD Administration Atorvastatin Calcium 40 mg 11/30/19 21:00 12/01/19 20:54 Lipitor PO Not Given HS WOOD Bisacodyl 10 mg 11/29/19 10:21 12/02/19 12:08 Dulcolax PO 10 mg Q12H PRN Administration Constipation Clopidogrel Bisulfate 75 mg 11/30/19 09:00 12/02/19 09:12 Plavix PO 75 mg DAILY WOOD Administration Ezetimibe 10 mg 11/30/19 09:00 12/02/19 09:12 Zetia PO 10 mg DAILY WOOD Administration Furosemide 40 mg 12/01/19 07:30 12/02/19 09:12 Lasix PO 40 mg DAILY-AC WOOD Administration Gabapentin 600 mg 11/30/19 21:00 12/01/19 20:54 Neurontin PO 600 mg HS [facility] Administration Insulin Human Lispro 0 units 11/30/19 11:12 12/02/19 12:09 Humalog SC 3 unit .MILD SLIDING SCALE PRN Administration Mild Correctional Scale Levothyroxine Sodium 50 mcg 12/01/19 06:00 12/02/19 05:36 Synthroid PO 50 mcg 0600 WOOD Administration Magnesium Hydroxide 30 ml 11/30/19 14:28 12/02/19 05:45 Milk Of Magnesium PO 30 ml Q12H PRN Administration Constipation Metformin HCl 500 mg 12/01/19 21:00 12/02/19 09:13 Glucophage PO 500 mg BID WOOD Administration Mineral Oil 133 ml 11/30/19 14:28 12/02/19 03:20 Fleet Mineral Oil [place] 133 ml DAILYPRN PRN Administration Constipation Nebivolol 5 mg 11/30/19 09:00 12/02/19 09:12 Bystolic PO 5 mg DAILY WOOD Administration Ondansetron HCl 4 mg 11/29/19 10:21 12/02/19 12:08 Zofran IVP 4 mg Q6H PRN Administration Nausea/Vomiting Pantoprazole Sodium 40 mg 11/30/19 09:00 12/02/19 09:12 Protonix PO 40 mg BID WOOD Administration Potassium Chloride 20 meq 11/29/19 10:21 11/29/19 11:52 Kcl IVPB 20 meq PRN PRN Administration K level </= 4.0 Potassium Chloride 10 meq 12/01/19 08:00 12/02/19 09:12 Klor-Con 10 PO 10 meq QAM-WM WOOD Administration Sodium Chloride 10 ml 11/29/19 10:21 12/02/19 00:12 Flush - Normal Saline IVF 10 ml PRN PRN Administration Saline Flush Tramadol HCl 50 mg 11/29/19 10:21 11/29/19 21:59 Ultram PO 50 mg Q6H PRN Administration Moderate Pain (4-6) Tramadol HCl 100 mg 11/29/19 10:21 11/30/19 04:56 Ultram PO 100 mg Q6H PRN Administration Severe Pain (7-10) - Exam General Appearance: NAD General - other findings: sleepy Eye: PERRL, anicteric sclera ENT: normocephalic atraumatic, no oropharyngeal lesions Neck: supple, symmetric, no JVD, no thyromegaly Heart: RRR, no gallops, no rubs, normal peripheral pulses Heart - other findings: S1, S2 Respiratory: CTAB, no wheezes, no rales, no ronchi, normal chest expansion, no tachypnea Gastrointestinal: soft, non-tender, non-distended, normal bowel sounds, no palpable masses Extremities: no cyanosis, no clubbing Extremities - other findings: LLE with ecchymosis in proximal thigh/groin Skin: normal turgor Neurological: cranial nerve grossly intact, no new deficit Musculoskeletal: normal tone, normal strength, generalized weakness Psychiatric: normal affect, A&O x 3 Hosp A/P (1) CAD (coronary artery disease) Code(s): I25.10 - ATHSCL HEART DISEASE OF [place] CORONARY ARTERY W/O ANG PCTRS Status: Chronic Qualifiers: Coronary Disease-Associated Artery/Lesion type: [place] artery [place] vs. transplanted heart: [place] heart Associated angina: without angina Qualified Code(s): I25.10 - Atherosclerotic heart disease of [place] coronary artery without angina pectoris Plan: continue med mgmt, see below, continue ASA/Plavix (2) S/P coronary artery bypass graft x 2 Code(s): Z95.1 - PRESENCE OF AORTOCORONARY BYPASS GRAFT Status: Acute Plan: POD #3, LOGAN to LAD, SVG to diagonal (3) Type 2 diabetes mellitus Status: Chronic Plan: ISS, serial accuchecks, ADA (4) HLD (hyperlipidemia) Code(s): E78.5 - HYPERLIPIDEMIA, UNSPECIFIED Status: Chronic Qualifiers: Hyperlipidemia type: unspecified Qualified Code(s): E78.5 - Hyperlipidemia , unspecified (5) HTN (hypertension) Code(s): I10 - ESSENTIAL (PRIMARY) HYPERTENSION Status: Chronic Qualifiers: Hypertension type: essential hypertension Qualified Code(s): I10 - Essential (primary) hypertension (6) Hypothyroidism Code(s): E03.9 - HYPOTHYROIDISM, UNSPECIFIED Status: Chronic Qualifiers: Hypothyroidism type: unspecified Qualified Code(s): E03.9 - Hypothyroidism , unspecified - Plan PT/OT, social work supervisor, respiratory therapy, incentive spirometry, out of bed/ ambulate, DVT proph w/SCDs 74 year old female with PMHx of CAD w/stents, HTN, HLD, T2DM, COPD, CKD who presented with unstable angina now s/p 2 vessel CABG performed on 11/29/[address] Henderson. S/p CABG 2 vessel Pt underwent 2 vessel CABG on 11/28/20 for unstable angina, now POD #3. -POD#3 -Encourage IS, on 2L O2 -Monitor UOP -Toradol, tramadol for pain -Bowel regimen -Trend and replete electrolytes CAD Follows with Dr. Starr. -ASA 81 mg -Atorvastatin 40 mg -Plavix 75 mg -Losartan 25 mg if BP allows -Bystolic 5 mg if BP allows HLD -Atorvastatin 40 mg -Zetia 10 mg COPD Hx COPD and MARCELLUS. Uses CPAP at home. -Duonebs PRN -CPAP at night T2DM: On home metformin, ISS. Hypothyroidism -Cont. home levothyroxine 50 mcg daily DVT prophylaxis with SCDs and DORA flood.
[2019-12-02] MEDS ORDERED: HumaLOG 300 UNITS/3 ML VIAL SC PRN (20:45)
[2019-12-02] MEDS: Gabapentin 300 MG CAP PO SCH (21:07)
[2019-12-02] MEDS: Atorvastatin Calcium 40 MG TAB PO SCH (21:08)
[2019-12-03] MEDS: Ondansetron PF 4 MG/2 ML Vial IVP PRN (00:55)
[2019-12-03] MEDS: Levothyroxine Sodium 50 MCG TAB PO SCH (06:13)
[2019-12-03] MEDS: Acetaminophen 325 MG TAB PO PRN (06:13)
[2019-12-03] MEDS: Ezetimibe 10 MG TAB PO SCH (08:32)
[2019-12-03] MEDS: Furosemide 40 MG TAB PO SCH (08:32)
[2019-12-03] MEDS: Aspirin Chewable 81 MG TAB PO SCH (08:32)
[2019-12-03] MEDS: Nebivolol HCl 5 MG TAB PO SCH (08:32)
[2019-12-03] MEDS: metFORMIN 500 MG TAB PO SCH (08:32)
[2019-12-03] MEDS: Potassium Chloride 10 MEQ TAB PO SCH (08:32)
[2019-12-03] MEDS: Clopidogrel Bisulfate 75 MG TAB PO SCH (08:32)
--- NOTE | 2019-12-03 11:09 | PDOC.HOSPP ---
- Subjective Encounter Date: 12/03/19 Encounter Time: 11:05 Subjective: f/u for CAD, s/p 2v CABG POD #4. Feels better overall compared to previous day. Tmax 100.3F currently afebrile and ambulating in [place]. - Objective Vital Signs & Weight: Vital Signs (12 hours) Temp Pulse Resp BP Pulse Ox 12/03/19 07:27 98.8 F 86 19 139/61 95 12/03/19 05:27 97 12/03/19 04:00 100.0 F H 92 16 149/69 H 96 12/03/19 00:00 100.3 F H 92 18 146/72 H 90 L Weight Weight 198 lb Most Recent Monitor Data Heart Rate from ECG 96 NIBP 118/62 NIBP BP-Mean 80 Respiration from ECG 42 SpO2 96 I&O: 12/02/19 12/03/19 12/04/19 06:59 06:59 06:59 Intake Total 240 640 Output Total 200 Balance 240 440 Result Diagrams: 12/02/19 03:18 12/02/19 03:18 Additional Labs: Accuchecks 12/03/19 12/02/19 12/02/19 05:55 20:12 16:57 POC Glucose 159 H 210 H 226 H 12/02/19 11:13 POC Glucose 216 H Microbiology 12/02/19 14:18 Venous blood - Right Hand Blood Culture - Preliminary Specimen has been received and culture in progress. No Growth to date. 12/02/19 14:09 Venous blood - Left Arm Blood Culture - Preliminary Specimen has been received and culture in progress. No Growth to date. 12/02/19 05:19 Urine clean catch Urine Culture - Preliminary NO GROWTH AT 12 HOURS Laboratory Tests 11/27/19 11/29/19 11/29/19 04:38 10:51 16:16 WBC 13.8 H Hgb 9.5 L 8.9 L Neutrophils % Hemoglobin A1c 5.4 Lactic Acid 11/30/19 12/02/19 04:03 03:18 WBC 14.7 H Hgb 8.2 L Neutrophils % 83.0 H Hemoglobin A1c Lactic Acid 1.3 Radiology Reviewed by me: Yes (PCXR - LLL small pleural effusion) EKG Reviewed by me: Yes (Tele - SR) Hospitalist ROS - Medication Medications: Active Medications Generic Name Dose Route Start Last Admin Trade Name Freq PRN Reason Stop Dose Admin Acetaminophen 650 mg 11/29/19 10:21 12/03/19 06:13 Tylenol PO 650 mg Q6H PRN Administration Headache/Fever Or Mild Pain Albuterol/Ipratropium 3 ml 11/29/19 10:21 12/01/19 21:20 Duoneb NEB 3 ml Q6H PRN Administration SHORTNESS OF BREATH Aspirin 81 mg 11/30/19 09:00 12/03/19 08:32 Aspirin Chewable PO 81 mg DAILY WOOD Administration Atorvastatin Calcium 40 mg 11/30/19 21:00 12/02/19 21:08 Lipitor PO Not Given HS WOOD Bisacodyl 10 mg 11/29/19 10:21 12/02/19 12:08 Dulcolax PO 10 mg Q12H PRN Administration Constipation Clopidogrel Bisulfate 75 mg 11/30/19 09:00 12/03/19 08:32 Plavix PO 75 mg DAILY WOOD Administration Ezetimibe 10 mg 11/30/19 09:00 12/03/19 08:32 Zetia PO 10 mg DAILY WOOD Administration Furosemide 40 mg 12/01/19 07:30 12/03/19 08:32 Lasix PO 40 mg DAILY-AC WOOD Administration Gabapentin 600 mg 11/30/19 21:00 12/02/19 21:07 Neurontin PO 600 mg HS WOOD Administration Insulin Human Lispro 0 units 11/30/19 11:12 12/02/19 17:26 Humalog SC 3 unit .MILD SLIDING SCALE PRN Administration Mild Correctional Scale Insulin Human Lispro 0 units 12/02/19 20:45 12/02/19 21:08 Humalog SC 2 unit .BEDTIME SLIDING SC PRN Administration Bedtime Correctional Scale Levothyroxine Sodium 50 mcg 12/01/19 06:00 12/03/19 06:13 Synthroid PO 50 mcg 0600 WOOD Administration Magnesium Hydroxide 30 ml 11/30/19 14:28 12/02/19 05:45 Milk Of Magnesium PO 30 ml Q12H PRN Administration Constipation Metformin HCl 500 mg 12/01/19 21:00 12/03/19 08:32 Glucophage PO 500 mg BID WOOD Administration Mineral Oil 133 ml 11/30/19 14:28 12/02/19 03:20 Fleet Mineral Oil [place] 133 ml DAILYPRN PRN Administration Constipation Nebivolol 5 mg 11/30/19 09:00 12/03/19 08:32 Bystolic PO 5 mg DAILY WOOD Administration Ondansetron HCl 4 mg 11/29/19 10:21 12/03/19 00:55 Zofran IVP 4 mg Q6H PRN Administration Nausea/Vomiting Pantoprazole Sodium 40 mg 11/30/19 09:00 12/03/19 08:32 Protonix PO 40 mg BID WOOD Administration Potassium Chloride 20 meq 11/29/19 10:21 11/29/19 11:52 Kcl IVPB 20 meq PRN PRN Administration K level </= 4.0 Potassium Chloride 10 meq 12/01/19 08:00 12/03/19 08:32 Klor-Con 10 PO 10 meq QAM-WM WOOD Administration Sodium Chloride 10 ml 11/29/19 10:21 12/02/19 00:12 Flush - Normal Saline IVF 10 ml PRN PRN Administration Saline Flush Tramadol HCl 50 mg 11/29/19 10:21 11/29/19 21:59 Ultram PO 50 mg Q6H PRN Administration Moderate Pain (4-6) Tramadol HCl 100 mg 11/29/19 10:21 11/30/19 04:56 Ultram PO 100 mg Q6H PRN Administration Severe Pain (7-10) - Exam General Appearance: NAD, awake alert Eye: PERRL, anicteric sclera ENT: normocephalic atraumatic, no oropharyngeal lesions Neck: supple, symmetric, no JVD, no thyromegaly, no lymphadenopathy Heart: RRR, no gallops, no rubs, normal peripheral pulses Heart - other findings: S1, S2 Respiratory: CTAB, no wheezes, no rales, no ronchi, normal chest expansion Gastrointestinal: soft, non-tender, non-distended, normal bowel sounds, no palpable masses Extremities: no cyanosis, no clubbing, no edema Skin: normal turgor Neurological: cranial nerve grossly intact, no new deficit Musculoskeletal: normal tone, generalized weakness Psychiatric: normal affect, A&O x 3 Hosp A/P (1) CAD (coronary artery disease) Code(s): I25.10 - ATHSCL HEART DISEASE OF [place] CORONARY ARTERY W/O ANG PCTRS Status: Chronic Qualifiers: Coronary Disease-Associated Artery/Lesion type: [place] artery [place] vs. transplanted heart: [place] heart Associated angina: without angina Qualified Code(s): I25.10 - Atherosclerotic heart disease of [place] coronary artery without angina pectoris Plan: s/p 2v CABG POD #4, continue ASA/Plavix/Lipitor (2) S/P coronary artery bypass graft x 2 Code(s): Z95.1 - PRESENCE OF AORTOCORONARY BYPASS GRAFT Status: Acute Plan: POD #4, see above, continue routine post-CABG protocol (3) Type 2 diabetes mellitus Status: Chronic (4) HLD (hyperlipidemia) Code(s): E78.5 - HYPERLIPIDEMIA, UNSPECIFIED Status: Chronic Qualifiers: Hyperlipidemia type: unspecified Qualified Code(s): E78.5 - Hyperlipidemia , unspecified (5) HTN (hypertension) Code(s): I10 - ESSENTIAL (PRIMARY) HYPERTENSION Status: Chronic Qualifiers: Hypertension type: essential hypertension Qualified Code(s): I10 - Essential (primary) hypertension (6) Hypothyroidism Code(s): E03.9 - HYPOTHYROIDISM, UNSPECIFIED Status: Chronic Qualifiers: Hypothyroidism type: unspecified Qualified Code(s): E03.9 - Hypothyroidism , unspecified - Plan PT/OT, social services aide, incentive spirometry, out of bed/ambulate, DVT proph w/ SCDs 74 year old female with PMHx of CAD w/stents, HTN, HLD, T2DM, COPD, CKD who presented with unstable angina now s/p 2 vessel CABG performed on 11/29/[address] Henderson. S/p CABG 2 vessel Pt underwent 2 vessel CABG on 824/20 for unstable angina, now POD #4. -POD#4 -Encourage IS, on 2L O2 PRN -Monitor UOP -Toradol, tramadol for pain -Bowel regimen -Trend and replete electrolytes CAD Follows with Dr. Starr. -ASA 81 mg -Atorvastatin 40 mg -Plavix 75 mg -Bystolic 5 mg daily HLD -Atorvastatin 40 mg -Zetia 10 mg COPD Hx COPD and MARCELLUS. Uses CPAP at home. -Duonebs PRN -CPAP at night T2DM: On home metformin, ISS. Hypothyroidism -Cont. home levothyroxine 50 mcg daily DVT prophylaxis with SCDs and DORA hose. Likely home in 24h
[2019-12-03] MEDS: HumaLOG 300 UNITS/3 ML VIAL SC PRN (12:01)
--- NOTE | 2019-12-03 13:38 | PDOC.CPN ---
- Subjective Date: 12/03/19 Time: 13:36 Interval history: She is doing better today. She continues to have low grade fever. Had BM this morning. C/o nausea but no vomiting and tolerating PO. Working with PT. - Review of Systems General: denies: fever/chills, weight/appetite/sleep changes, night sweats, fatigue Respiratory: reports: exercise intolerance. denies: cough, congestion, shortness of breath Cardiovascular: denies: chest pain, palpitation, edema, paroxysmal nocturnal dyspnea, orthopnea Gastrointestinal: denies: nausea, vomiting, diarrhea, constipation, abd pain, GI bleeding Musculoskeletal: denies: pain, tenderness, stiffness, swelling, arthritis/ arthralgias Neurological: denies: numbness, syncope, seizure, weakness - Objective Allergies/Adverse Reactions: Allergies Allergy/AdvReac Type Severity Reaction Status Date / Time morphine Allergy Intermediate ITCHING Verified 03/22/19 17:09 AUDIE Inhibitors Allergy COUGH Verified 03/22/19 17:09 fentanyl AdvReac Severe GIVEN A Verified 03/22/19 17:09 HIGH DOSE AND HEART STOPPPED Visit Medications: Current Medications Acetaminophen (Tylenol) 650 mg PO Q6H PRN PRN Reason: Headache/Fever Or Mild Pain Last Admin: 12/03/19 06:13 Dose: 650 mg Al Hydroxide/Mg Hydroxide (Maalox) 30 ml PO Q4H PRN PRN Reason: Indigestion Albuterol/Ipratropium (Duoneb) 3 ml NEB Q6H PRN PRN Reason: SHORTNESS OF BREATH Last Admin: 12/01/19 21:20 Dose: 3 ml Aspirin (Aspirin Chewable) 81 mg PO DAILY [facility] Last Admin: 12/03/19 08:32 Dose: 81 mg Atorvastatin Calcium (Lipitor) 40 mg PO HS [facility] Last Admin: 12/02/19 21:08 Dose: Not Given Bisacodyl (Dulcolax) 10 mg PO Q12H PRN PRN Reason: Constipation Last Admin: 12/02/19 12:08 Dose: 10 mg Bisacodyl (Dulcolax) 10 mg [place] Q12H PRN PRN Reason: Constipation Clopidogrel Bisulfate (Plavix) 75 mg PO DAILY [facility] Last Admin: 12/03/19 08:32 Dose: 75 mg Dextrose/Water (Dextrose 50%) 25 gm SLOW IVP PRN PRN PRN Reason: Hypoglycemia Diphenhydramine HCl (Benadryl) 25 mg PO Q6H PRN PRN Reason: Itching & Insomnia or Swapnil Dean Ezetimibe (Zetia) 10 mg PO DAILY [facility] Last Admin: 12/03/19 08:32 Dose: 10 mg Furosemide (Lasix) 40 mg PO DAILY-AC [facility] Last Admin: 12/03/19 08:32 Dose: 40 mg Gabapentin (Neurontin) 600 mg PO HS [facility] Last Admin: 12/02/19 21:07 Dose: 600 mg Glucagon (Glucagon) 1 mg IM PRN PRN PRN Reason: Hypoglycemia Guaifenesin/Dextromethorphan (Robitussin Dm) 15 ml PO Q4H PRN PRN Reason: Cough Hydralazine HCl (Apresoline) 10 mg SLOW IVP Q6H PRN PRN Reason: To Maintain SBP< 140mmHG Dextrose/Water (D5w) 1,000 mls @ 0 mls/hr IV .Q0M PRN PRN Reason: Hypoglycemia Insulin Human Lispro (Humalog) 0 units SC .MILD SLIDING SCALE PRN PRN Reason: Mild Correctional Scale Last Admin: 12/03/19 12:01 Dose: 2 unit Insulin Human Lispro (Humalog) 0 units SC .BEDTIME SLIDING SC PRN PRN Reason: Bedtime Correctional Scale Last Admin: 12/02/19 21:08 Dose: 2 unit Levothyroxine Sodium (Synthroid) 50 mcg PO 0600 [facility] Last Admin: 12/03/19 06:13 Dose: 50 mcg Magnesium Hydroxide (Milk Of Magnesium) 30 ml PO Q12H PRN PRN Reason: Constipation Last Admin: 12/02/19 05:45 Dose: 30 ml Metformin HCl (Glucophage) 500 mg PO BID [facility] Last Admin: 12/03/19 08:32 Dose: 500 mg Mineral Oil (Fleet Mineral Oil) 133 ml [place] DAILYPRN PRN PRN Reason: Constipation Last Admin: 12/02/19 03:20 Dose: 133 ml Nebivolol (Bystolic) 5 mg PO DAILY [facility] Last Admin: 12/03/19 08:32 Dose: 5 mg Nitroglycerin (Nitrostat) 0.4 mg SL Q5MIN PRN PRN Reason: Chest Pain Ondansetron HCl (Zofran) 4 mg IVP Q6H PRN PRN Reason: Nausea/Vomiting Last Admin: 12/03/19 00:55 Dose: 4 mg Pantoprazole Sodium (Protonix) 40 mg PO BID WOOD Last Admin: 12/03/19 08:32 Dose: 40 mg Potassium Chloride (Kcl) 20 meq IVPB PRN PRN PRN Reason: K level </= 4.0 Last Admin: 11/29/19 11:52 Dose: 20 meq Potassium Chloride (Klor-Con 10) 10 meq PO QAM-WM WOOD Last Admin: 12/03/19 08:32 Dose: 10 meq Sodium Chloride (Flush - Normal Saline) 10 ml IVF PRN PRN PRN Reason: Saline Flush Last Admin: 12/02/19 00:12 Dose: 10 ml Tramadol HCl (Ultram) 50 mg PO Q6H PRN PRN Reason: Moderate Pain (4-6) Last Admin: 11/29/19 21:59 Dose: 50 mg Tramadol HCl (Ultram) 100 mg PO Q6H PRN PRN Reason: Severe Pain (7-10) Last Admin: 11/30/19 04:56 Dose: 100 mg Zolpidem Tartrate (Ambien) 5 mg PO HSPRN PRN PRN Reason: Insomnia Vital Signs & Weight: Vital Signs Temp Pulse Pulse Pulse Resp BP BP 12/03/19 11:29 98.8 F 98 20 12/03/19 10:34 106 H 96 138/65 116/56 L 12/03/19 07:27 98.8 F 86 19 12/03/19 05:27 12/03/19 04:00 100.0 F H 92 16 BP Pulse Ox 12/03/19 11:29 119/56 L 95 12/03/19 10:34 12/03/19 07:27 139/61 95 12/03/19 05:27 97 12/03/19 04:00 149/69 H 96 Weight 198 lb - Physical Exam General: alert & oriented x3 HEENT: mucus membranes moist Neck: supple neck Cardiac: regular rate and rhythm Lungs: normal breath sounds Neuro: grossly intact Abdomen: active bowel sounds Extremities: 1+ LE edema Skin: clear Musculoskeletal: no pain - Labs Result Diagrams: 12/02/19 03:18 12/02/19 03:18 Troponin/CKMB Troponin I 0.010 ng/mL (< 0.028) 08/19/20 23:23 - Telemetry Sinus rhythms and dysrhythmias: sinus rhythm - Assessment/Plan Assessment/Plan: 1. Unstable angina 2. CAD 3. S/P CABG x 2 LOGAN to LAD, SVG to Diagonal. Off pump procedure. 4. Low grade. PLAN: - ASA and statin for life. - On BB - Will start low dose ACEI. - Increase PT as tolerated. - CXR, UA & culture, Blood Culture.
[2019-12-03 16:11] VITALS: BP 120/99; TEMP 99.5
--- NOTE | 2019-12-04 02:30 | DIS ---
DATE OF ADMISSION: 11/26/2019 DATE OF DISCHARGE: 12/03/2019 DISCHARGE DIAGNOSES: 1. Coronary artery disease, status post coronary artery bypass grafting x2 vessels. 2. Unstable angina secondary to #1. 3. Diabetes mellitus type 2, chronic. 4. Hyperlipidemia. 5. Hypertension. 6. Hypothyroidism. CONSULTATIONS: 1. Dr. Starr with Cardiology Service. 2. Dr. Augie Henderson with Cardiothoracic Surgery Service. PERTINENT LABORATORY AND X-RAY FINDINGS: Creatinine ranged between 0.77 to 1.17. Hemoglobin A1c 5.4. Lactic acid level 1.3. Troponin I negative x2. CBC showed a white blood cell count ranging between 7.7 to 14.7, hemoglobin ranged between 8.2 to 12.0. COVID-19, PCR not detected 11/26/2019. Blood cultures x2 dated 12/02/2019, showed no growth to date. Urine culture dated 12/02/2019, showed no growth at 36 hours. Cardiac catheterization dated 11/26/2019 showed severe in-stent restenoses of the left anterior descending and ostial D1, patent left circumflex and RCA. HOSPITAL COURSE: The patient initially presented complaining of chest pain in the context of known coronary artery disease with prior stenting and in-stent stenosis. The patient had associated shortness of breath, undergoing initial troponin I evaluation. Which was negative. The patient was evaluated by the Cardiology Service due to her significant history of coronary artery disease, undergoing cardiac catheterization showing slight in-stent stenosis of the left LAD and D1 segment. The patient was evaluated by cardiothoracic surgery service, undergoing two vessel coronary artery bypass grafting with LOGAN to LAD and saphenous vein graft to the diagonal. The patient was monitored for approximately 4 days postoperatively and overall met all appropriate milestones and post CABG protocol. The patient ambulated with physical therapy and was tolerating regular oral intake. I have examined the patient at the time of discharge and discussed followup instructions. The patient verbalized understanding and agreement, ready for discharge on 12/03/2019. DISCHARGE MEDICATIONS: 1. Enteric-coated aspirin 81 mg p.o. daily. 2. Zetia 10 mg p.o. daily. 3. Gabapentin 600 mg p.o. at bedtime. 4. Levothyroxine 50 mcg p.o. daily. 5. Metformin 500 mg p.o. b.i.d. 6. Bystolic 5 mg p.o. at bedtime. 7. Protonix 40 mg p.o. b.i.d. 8. Lipitor 40 mg p.o. at bedtime. 9. Plavix 75 mg p.o. daily. 10. Lasix 40 mg p.o. daily. 11. Klor-Con 10 mEq p.o. daily. 12. Tramadol 50 mg 1-2 tablets p.o. q.6 hours p.r.n. pain. FOLLOWUP: 1. The patient may follow up with kimberly Enamorado on 12/07/2019 at 2:30 p.m. 2. The patient will follow up with Dr. Augie Henderson on 12/20/2019 at 1 p.m. 3. The patient may follow up with Dr. Eusebio Starr 12/28/2019 at 1 p.m. CONDITION ON DISCHARGE: Stable. ACTIVITY: Ad-kayla. DIET: ADA and heart healthy. SPECIAL INSTRUCTIONS: Outpatient cardiac rehabilitation in [place]. CODE STATUS: Full. DISPOSITION: To home 12/03/2019. Job ID: [id number]
--- NOTE | 2019-12-04 04:00 | DIS ---
DATE OF ADMISSION: 11/26/2019 DATE OF DISCHARGE: 12/03/2019 DIAGNOSES: 1. Coronary artery disease, status post bifurcated stenting of her left anterior descending diagonal system in the past with recurrent angina. 2. Diabetes mellitus. 3. Chronic obstructive pulmonary disease. 4. Hypothyroidism. 5. Gastroesophageal reflux disease. 6. Hypertension. 7. Dyslipidemia. 8. Peripheral neuropathy. PROCEDURES: 1. Cardiac catheterization. 2. Off pump coronary artery bypass grafting x2 - left internal mammary artery to LAD, reverse saphenous vein to diagonal. DESCRIPTION OF HOSPITAL STAY: Ms. Joyner was admitted with unstable angina. She underwent repeat cardiac catheterization revealing in-stent restenoses. She has had multiple in-stent restenoses and interventions. She was taken to the operating room on 11/28 and underwent off pump bypass as above. She has done well postoperatively, being discharged home in good condition. Follow up with me in 2 weeks, [address]. Starr in a month. DISCHARGE MEDICATIONS: 1. Aspirin 81 mg daily. 2. Plavix 75 mg daily. 3. Zetia 10 mg daily. 4. Gabapentin 600 mg at bedtime. 5. Synthroid 50 mcg daily. 6. Glucophage 500 mg b.i.d. 7. Bystolic 5 mg at bedtime. 8. Protonix 40 mg b.i.d. 9. Lipitor 40 mg at bedtime. 10. Lasix 40 mg daily for seven days. 11. Potassium 10 mEq daily for seven days. 12. Ultram 50 mg 1 to 2 q.6 hours p.r.n. pain. Job ID: [id number]
--- NOTE | 2019-12-05 17:16 | EKG ---
Test Reason : POST CABG Blood Pressure : / mmHG Vent. Rate : 078 BPM Atrial Rate : 078 BPM P-R Int : 144 ms QRS Dur : 122 ms QT Int : 468 ms P-R-T Axes : 044 -06 002 degrees QTc Int : 533 ms Normal sinus rhythm RSR' or QR pattern in V1 suggests right ventricular conduction delay Left ventricular hypertrophy with QRS widening Abnormal ECG Confirmed by CA MOORE (2) on 12/05/2019 5:16:27 PM Referred By: Remington CROOK Confirmed By:CA MOORE
== END 2019-12-03 17:30 | disposition home or self-care (01) | DRG 234 ==
LOC: 2NO 19:02 → OBSVTOIN 11-26 10:00 → CCU 11-29 06:59 → 2NO 11-30 18:37
PROVIDERS: ADMIT Internal Medicine; ATTEND Internal Medicine
PROC: 4A023N7 Measurement of Cardiac Sampling and Pressure, Left Heart, Percutaneous Approach (ICD-10-PCS; principal; 2019-11-26)
PROC: B2111ZZ Fluoroscopy of Multiple Coronary Arteries using Low Osmolar Contrast (ICD-10-PCS; 2019-11-26)
PROC: B2151ZZ Fluoroscopy of Left Heart using Low Osmolar Contrast (ICD-10-PCS; 2019-11-26)
PROC: 02100Z9 Bypass Coronary Artery, One Artery from Left Internal Mammary, Open Approach (ICD-10-PCS; 2019-11-29)
PROC: 021009W Bypass Coronary Artery, One Artery from Aorta with Autologous Venous Tissue, Open Approach (ICD-10-PCS; 2019-11-29)
PROC: 06BQ3ZZ Excision of Left Saphenous Vein, Percutaneous Approach (ICD-10-PCS; 2019-11-29)
DX: T82.855A Stenosis of coronary artery stent, initial encounter (principal); I25.110 Atherosclerotic heart disease of native coronary artery with unstable angina pectoris; Y83.8 Other surgical procedures as the cause of abnormal reaction of the patient, or of later complication, without mention of misadventure at the time of the procedure; E78.5 Hyperlipidemia, unspecified; I10 Essential (primary) hypertension; E03.9 Hypothyroidism, unspecified; Z20.828 Contact with and (suspected) exposure to other viral communicable diseases; J44.9 Chronic obstructive pulmonary disease, unspecified; K21.9 Gastro-esophageal reflux disease without esophagitis; E11.42 Type 2 diabetes mellitus with diabetic polyneuropathy; Z96.653 Presence of artificial knee joint, bilateral; G47.33 Obstructive sleep apnea (adult) (pediatric); E78.00 Pure hypercholesterolemia, unspecified; Z90.49 Acquired absence of other specified parts of digestive tract; Z88.5 Allergy status to narcotic agent; Z88.8 Allergy status to other drugs, medicaments and biological substances; Z90.710 Acquired absence of both cervix and uterus; Z79.82 Long term (current) use of aspirin; Z79.01 Long term (current) use of anticoagulants; Z79.890 Hormone replacement therapy; Z79.899 Other long term (current) drug therapy; Z79.84 Long term (current) use of oral hypoglycemic drugs; Z99.89 Dependence on other enabling machines and devices
CPT/HCPCS: 36415; 36416; 36430; 71045; 80048; 81001; 82805; 82947; 83036; 83605; 84484; 85025; 85610; 85730; 86850; 86900; 86901; 87040; 87086; 87635; 93005; 93010; 93458; 93798; 94640; 94660; 94760; 97139; 99152; J0171; J0690; J1100; J1265; J1642; J1644; J1815; J1885; J1940; J2250; J2405; J2440; J2720; J3010; J3370; J3475; J3480; J7620; P9045; Q0162; Q9967; S0017; S0020; S0028; U0003

== ENCOUNTER 2019-12-05 16:04 | Inpatient (IN) | payer MEDICARE, OTHER ==
[~2019-12-05 16:04] MED LIST changes: -Gadobenate Dimeglumine 529 MG/1 ML (20ML VIAL) ONE; +Iopamidol-370 76% 500 ML 1 ML ONE
[2019-12-05] MEDS ORDERED: Furosemide 40 MG/4 ML VIAL ONE (16:50)
[2019-12-05 17:01] LABS: Hemoglobin 8.8 g/dL (12.0-16.0); Mean Corpuscular HGB CONC 32.9 g/dL (32.0-36.0); Mean Corpuscular Hemoglobin 31.3 pg (27.0-31.0); Platelet Count 510 thou/uL (130-400); RBC Distribution Width 13.7 % (11.5-14.5); Red Blood Cell (RBC) Count 2.81 mill/uL (4.20-5.40); White Blood Cell (WBC) Count 14.1 thou/uL (4.8-10.8)
--- NOTE | 2019-12-05 17:17 | RAD ---
PORTABLE CHEST: Date: 12-05-2019 PROVIDED CLINICAL HISTORY: Dyspnea. FINDINGS: Comparison 12-02-2019. The cardiac silhouette is unchanged in appearance. Median sternotomy changes are again seen. Elevatio n of the left hemidiaphram with blunting of the costophrenic angle. No pneumothorax or definite focal consolidation. IMPRESSION: Elevation of the left hemidiaphragm with adjacent pleural fluid and/or atelectasis. POS: MINNA
[2019-12-05 17:20] LABS: ALT (SGPT) 8 U/L (8-55); AST (SGOT) 13 U/L (5-34); Albumin 3.5 g/dL (3.4-4.8); Alkaline Phosphatase 99 U/L (40-110); Anion Gap 17 mmol/L (10-20); BUN (Urea Nitrogen) 28 mg/dL (9.8-20.1); Bilirubin, Total 0.4 mg/dL (0.2-1.2); Calc. Creatinine Clearance 0 mL/min (70-130); Carbon Dioxide 29 mmol/L (23-31); Chloride 98 mmol/L (98-107); Estimated GFR-MDRD 37; Globulin 2.8 g/dL (2.4-3.5); Glucose 160 mg/dL (83-110); Potassium 4.4 mmol/L (3.5-5.1); Protein, Total 6.3 g/dL (6.0-8.3); Sodium 140 mmol/L (136-145)
[2019-12-05 17:24] LABS: Eosinophils 7 % (0-10); Lymphocytes 19 % (21-51); MDiff Complete? YES; Monocytes 10 % (0-10); Neutrophil 63 % (42-75); Platelet Morphology Comment Appears Increased; RBC Morphology Normal
[2019-12-05] MEDS ORDERED: Acetaminophen 325 MG TAB PO PRN (18:00)
[2019-12-05] MEDS ORDERED: Ondansetron ODT 4 MG TAB SL PRN (18:00)
[2019-12-05] MEDS ORDERED: HYDROcodone/Acetaminophen 5/325 mg Tablet PO PRN ×2 (18:00)
[2019-12-05] MEDS ORDERED: Ondansetron PF 4 MG/2 ML Vial IVP PRN (18:00)
[2019-12-05] MEDS ORDERED: Cefepime 2 GM VIAL ONE (18:10)
[2019-12-05] MEDS ORDERED: Vancomycin 1.5 GRAM/300 ML BAG 1.5 GM in Premix Bag 1 BAG IVPB SCH (18:30)
--- NOTE | 2019-12-05 18:36 | CT ---
CT PULMONARY ANGIOGRAM WITH IV CONTRAST AND 3D MIP RECONSTRUCTIONS: Date: 12-05-2019 PROVIDED CLINICAL HISTORY: Dyspnea. FINDINGS: Post-operative changes of recent median sternotomy. Minimal pericardial fluid. Vascular stent materia l involves the coronary arteries. There is no evidence for central or segmental pulmonary embolus. There is left basilar subsegmental atelectasis and/or consolidation with adjacent left pleural fluid. There is subsegmental atelectasis involving the dependent portions of the right lung. There is no pn eumothorax evident. There are occasional patchy subpleural foci of ground glass opacity and interstit ial thickening primarily involving the lung apices. The visualized portions of the upper abdomen demonstrate no significant abnormality. The osseous structures demonstrate no concerning lytic or blastic lesions. IMPRESSION: 1. No evidence for central or segmental pulmonary embolus. 2. Left basilar subsegmental atelectasis and/or pneumonia with adjacent pleural fluid. 3. Patchy subpleural foci of ground glass opacity and interstitial thickening involving primarily the upper lobes. This is nonspecific but can be seen in the setting of Covid pneumonia. POS: MINNA
--- NOTE | 2019-12-05 19:57 | PDOC.HHP ---
Hospitalist HPI - History of Present Illness Shortness of breath History of Present Illness: This is a 74-year-old female patient with a history of coronary artery disease status post CABG on 11/29/2019, diabetes mellitus, hypertension who was discharged 2 days ago after her CABG procedure. She notes having had progressive shortness of breath and oxygen desaturation since she went home to the mid 80s. She has a pulse oximeter which she is to monitor her oxygen saturation. Today her dyspnea became worse and she had easy fatigability and difficulty moving aroundleading her to call for EMS and come to the ED. she also has associated chest pain in the region of her wound. She admits to cough which she cannot do hard enough to bring up any sputum. This is due to pain in her chest. She admits to occasional wheezing. She also has easy fatigability however denies any current swelling of her feet. She denies any dysuria, frequency or abdominal pain At baseline for the past 6 months he walks around with a walker and wheelchair at home prior to coming in for CABG of the last admission. She does not have any support at home as her has ALS In the ED, chest x-ray and CTA were concerning for right lower lobar pneumonia with effusion and possible COVID. No pulmonary embolism was detected. COVID was negative on 11/26/2019 during her previous admission. She had a leukocytosis of 14.1 and anemia of 8.8 around where she was prior to discharge. BNP was mildly elevated at 126. Hospitalist ROS - Review of Systems Constitutional: reports: weakness. denies: fever, chills Respiratory: reports: cough, dry, shortness of breath, SOB with excertion. denies: hemoptysis Cardiovascular: reports: chest pain. denies: orthopnea, paroxysmal noc. dyspnea Gastrointestinal: reports: diarrhea (She had diarrhea a day ago however currently subsided). denies: nausea, vomiting, abdominal pain Genitourinary: denies: dysuria, frequency Musculoskeletal: reports: leg pain, foot pain Neurological: reports: weakness. denies: change in speech, confusion Hospitalist History - Past Medical History Cardiac: reports: CAD, HTN Endocrine: reports: Diabetes Other Medical History: Allergies: Javon inhibitors, morphine, fentanyl Current Medications: Aspirin 81mg daily Ezetimibe 10mg daily Gabapentin 600mg HS Levothyroxine 50mcg daily Metformin 500mg bid Nebivolol 5mg HS Atorvastatin 40mg bid Furosemide 40mg daily KCL 10meq qam Tramadol 100mg q6h prn - Past Surgical History Past Surgical History: reports: Appendectomy, Cholecystectomy - Family History Family History: reports: diabetes mellitus - Exam General Appearance: awake alert Eye: PERRL, anicteric sclera ENT: normocephalic atraumatic, no oropharyngeal lesions Neck: no JVD, no thyromegaly, no lymphadenopathy, no carotid bruit Heart: RRR, no murmur, no gallops, no rubs, normal peripheral pulses Respiratory: no wheezes, no rales, no ronchi, no tachypnea Gastrointestinal: soft, non-tender, non-distended, normal bowel sounds Extremities: no cyanosis, no clubbing Hospitalist Results - Labs Result Diagrams: 12/07/19 10:34 12/07/19 10:34 Lab results: WBC 14.1 thou/uL (4.8-10.8) H 12/05/19 16:47 Hgb 8.8 g/dL (12.0-16.0) L 12/05/19 16:47 Hct 26.7 % (36.0-47.0) L 12/05/19 16:47 MCV 95.0 fL (78.0-98.0) 12/05/19 16:47 Plt Count 510 thou/uL (130-400) H 12/05/19 16:47 Sodium 140 mmol/L (136-145) 12/05/19 16:47 Potassium 4.4 mmol/L (3.5-5.1) 12/05/19 16:47 Chloride 98 mmol/L (98-107) 12/05/19 16:47 Carbon Dioxide 29 mmol/L (23-31) 12/05/19 16:47 BUN 28 mg/dL (9.8-20.1) H 12/05/19 16:47 Creatinine 1.40 mg/dL (0.6-1.1) H 12/05/19 16:47 Glucose 160 mg/dL (83-110) H 12/05/19 16:47 Calcium 9.0 mg/dL (7.8-10.44) 12/05/19 16:47 Total Bilirubin 0.4 mg/dL (0.2-1.2) 12/05/19 16:47 AST 13 U/L (5-34) 12/05/19 16:47 ALT 8 U/L (8-55) 12/05/19 16:47 Alkaline Phosphatase 99 U/L (40-110) 12/05/19 16:47 Troponin I Less than 0.010 ng/mL (< 0.028) 12/05/19 16:47 B-Natriuretic Peptide 126.9 pg/mL (0-100) H 12/05/19 16:47 Serum Total Protein 6.3 g/dL (6.0-8.3) 12/05/19 16:47 Albumin 3.5 g/dL (3.4-4.8) 12/05/19 16:47 Hospitalist H&P A/P - Plan Plan: This is a 74-year-old male patient with a history of coronary disease status post CABG 11/29/2019, diabetes mellitus hypertension who after being discharged on 12/03/2019 presents today after progressive. Of worsening dyspnea and easy fatigability with chest pain. Initial evaluation is concerning for possible left lower lobe pneumonia but also for heart failure She will be admitted onto the telemetry unit as an inpatient Dyspnea Likely multifactorialpossible pneumonia, pleural effusion and heart failure Right lower lobe pneumonia. Patient presents with dyspnea, hypoxia with leukocytosis X-ray CT suggestive of infiltrates possible atelectasis/pneumonia with mild effusion. Given her recent discharge we will start her on vancomycin and cefepime Rapid COVID test Would appreciate ID input and antibiotic management at this point Heart failure exacerbation EF on 11/26/2019 on cardiac catheterization was 55% Given history of CAD and worsening symptoms. BNP is 126 slightly high as patient is obese as well. Lasix was given in ED Repeat Lasix in a.m. and monitor electrolytes Nebivololwe will hold given possibility of acute exacerbation and appreciate cardiology input Given her anemia of 8.8 we discussed with cardiology and given a blood transfusion in the setting of coronary disease Given her recent discharge and CABGcardiology consulted. Coronary disease Status post CABG Wound does not look infected however has surrounding pain Admit to telemetry floor and monitor Anemia Hemoglobin 8.8 was 8.7 at discharge. This may be contributing to possible heart failure We will check iron studies Replace iron as needed Consider transfusiondiscussed with cardiology CKD Creatinine 1.4 from 1.17 at discharge We will monitor BMP Diabetes mellitus A1c 5.4 recently. Monitor low sliding scale OSAuses home CPAP CPAP ordered VTE prophylaxisheparin
[2019-12-05] MEDS ORDERED: Dextrose 50% Abboject 50 ML SYRINGE SLOW IVP PRN (20:04)
[2019-12-05] MEDS ORDERED: Dextrose 5% in Water 1,000 ML IV PRN (20:04)
[2019-12-05 20:59] VITALS: BMI 32.6
[2019-12-05 21:12] LABS: Troponin I Less than 0.010 ng/mL (< 0.028)
[2019-12-05 21:20] LABS: SARS-CoV-2 NAA Rapid Test Not Detected (NotDetected)
[2019-12-05] MEDS: Heparin 5,000 UNITS/ML VIAL SC SCH (21:24)
[2019-12-05 21:29] LABS: Iron 35 ug/dL (50-170); Iron Binding Capacity, Total 223 mcg/dL (265-497)
[2019-12-05 23:41] LABS: Troponin I Less than 0.010 ng/mL (< 0.028)
[2019-12-05 23:43] LABS: Anion Gap 15 mmol/L (10-20); BUN (Urea Nitrogen) 26 mg/dL (9.8-20.1); Calc. Creatinine Clearance 56 mL/min (70-130); Calcium 8.7 mg/dL (7.8-10.44); Carbon Dioxide 30 mmol/L (23-31); Chloride 97 mmol/L (98-107); Estimated GFR-MDRD 43; Glucose 137 mg/dL (83-110); Magnesium 1.6 mg/dL (1.6-2.6); Sodium 138 mmol/L (136-145)
[2019-12-05] MEDS ORDERED: Nebivolol HCl 5 MG TAB PO SCH (23:45)
[2019-12-06] MEDS: Cefepime 2 GM in Sodium Chloride 0.9% 100 ML IVPB SCH ×2 (04:51→16:08)
[2019-12-06 05:29] LABS: Anion Gap 13 mmol/L (10-20); BUN (Urea Nitrogen) 26 mg/dL (9.8-20.1); Calc. Creatinine Clearance 63 mL/min (70-130); Calcium 8.9 mg/dL (7.8-10.44); Carbon Dioxide 33 mmol/L (23-31); Chloride 97 mmol/L (98-107); Estimated GFR-MDRD 48; Glucose 138 mg/dL (83-110); Potassium 3.9 mmol/L (3.5-5.1); Sodium 139 mmol/L (136-145)
[2019-12-06 05:37] LABS: Band 3 % (5-11); Eosinophils 4 % (0-10); Hemoglobin 8.3 g/dL (12.0-16.0); Lymphocytes 18 % (21-51); MDiff Complete? YES; Mean Corpuscular HGB CONC 33.2 g/dL (32.0-36.0); Mean Corpuscular Hemoglobin 31.3 pg (27.0-31.0); Mean Corpuscular Volume 94.4 fL (78.0-98.0); Mean Platelet Volume 7.8 fL (7.4-10.4); Monocytes 16 % (0-10); Neutrophil 58 % (42-75); Platelet Count 491 thou/uL (130-400); Platelet Morphology Comment Appears Increased; RBC Distribution Width 13.9 % (11.5-14.5); Reactive Lymphocytes 1 % (0-10); Red Blood Cell (RBC) Count 2.64 mill/uL (4.20-5.40); White Blood Cell (WBC) Count 11.9 thou/uL (4.8-10.8)
[2019-12-06] MEDS ORDERED: Enoxaparin Sodium 40 MG/0.4 ML SYRINGE SC SCH (09:00)
[2019-12-06] MEDS: Ezetimibe 10 MG TAB PO SCH (09:15)
[2019-12-06] MEDS: Heparin 5,000 UNITS/ML VIAL SC SCH ×2 (09:15→22:08)
[2019-12-06] MEDS: Aspirin 81 mg Enteric Coated Tablet PO SCH (09:15)
[2019-12-06] MEDS: Clopidogrel Bisulfate 75 MG TAB PO SCH (09:15)
[2019-12-06] MEDS: Furosemide 40 MG/4 ML VIAL SLOW IVP SCH (09:16)
[2019-12-06] MEDS: Nebivolol HCl 5 MG TAB PO SCH (09:50)
[2019-12-06] MEDS: HumaLOG 300 UNITS/3 ML VIAL SC PRN ×2 (11:55→17:28)
--- NOTE | 2019-12-06 15:15 | CON ---
DATE OF CONSULTATION: 12/06/2019 REASON FOR CONSULTATION: Shortness of breath. PRIMARY AUTO ADJUDICATION SPECIALIST: Eusebio Starr MD HISTORY OF PRESENT ILLNESS: Ms. Joyner is a very pleasant 74-year-old white female, who comes to the hospital for shortness of breath and malaise. She was admitted here on the 24 of November for chest pain. She was diagnosed with unstable angina, taken to the catheterization lab and found to have in-stent restenoses in her LAD and a diagonal. She underwent two-vessel bypass as she has had several interventions to these two vessels in the past. She did well afterwards. She did have an episode of fevers and then eventually her fever got down. This was thought to be related to just postop fever. She did not have any recurrence. She was feeling just fine and discharged home. In the last 3 days, she has been slowly getting more short-winded to the point where yesterday she called, having issues breathing. Her saturations were in the 70s. I asked her to go to the emergency room, where she was evaluated and admitted for possible pneumonia and heart failure. She has already received IV antibiotics and given one dose of IV Lasix and already feeling a lot better. PAST MEDICAL HISTORY: 1. Coronary artery disease. 2. Status post CABG x2 just a week ago. 3. Hypertension. 4. GERD. 5. Type 2 diabetes. 6. Bronchial asthma. 7. Renal stones. 8. Peripheral vascular disease. PAST SURGICAL HISTORY: 1. Appendectomy. 2. Cholecystectomy. 3. Craniotomy in the past. 4. Hysterectomy. 5. Oophorectomy. 6. Bilateral knee surgeries. 7. Tonsillectomy. 8. Bifurcating stent to LAD and diagonal. 9. CABG x2, LOGAN to LAD, vein graft to diagonal. SOCIAL HISTORY: No alcohol, tobacco, or drugs. OUTPATIENT MEDICATIONS: 1. Tramadol p.r.n. 2. Metformin 500 mg b.i.d. 3. Potassium chloride 10 mEq a day. 4. Pantoprazole 40 mg b.i.d. 5. Nebivolol 5 mg a day. 6. Synthroid 50 mcg a day. 7. Gabapentin 600 mg at bedtime. 8. Furosemide 40 mg a day. 9. Zetia 10 mg a day. 10. Plavix 75 mg a day. 11. Lipitor 40 mg a day. 12. Aspirin 81 a day. ALLERGIES: 1. AUDIE INHIBITORS. 2. FENTANYL, LARGE DOSE GAVE HER CARDIAC ARREST IN THE POSTOPERATIVE STATE. 3. MORPHINE. 4. ADVERSE REACTION TO STATINS. REVIEW OF SYSTEMS: Twelve-point review of systems was done and was found to be negative other than stated in the History of Present Illness. PHYSICAL EXAMINATION: VITAL SIGNS: Temperature 98.5, pulse 76, respiratory rate 20, saturating 94% on 1 L nasal cannula, and blood pressure 123/61. GENERAL: Awake, alert, oriented x3, in no distress. HEENT: Normocephalic, atraumatic. NECK: Supple. LUNGS: Crackles at the bases. CARDIOVASCULAR: S1 and S2. No S3 or S4. No murmurs. ABDOMEN: Soft. Positive bowel sounds. LABORATORY WORK: Reviewed. White count of 14, hemoglobin of 8.8, hematocrit of 26, platelet count of 510. Coags were normal. Chemistries are unremarkable except for . Troponin is negative. COVID-19 PCR was not detected, was negative. Iron was 35, TIBC was 223. Chest x-ray was reviewed. CT of the chest was reviewed. ASSESSMENT: 1. Acute on chronic diastolic heart failure. 2. Pneumonia, likely postoperative. PLAN: 1. IV antibiotics wide spectrum to cover MRSA per Primary Team. 2. IV diuresis. 3. She is already feeling better. 4. Continue to monitor. 5. Physical therapy. 6. We will most likely need placement may be either [facility] versus inpatient rehab. Job ID: [id number]
--- NOTE | 2019-12-06 15:24 | PDOC.HOSPP ---
- Subjective Encounter Date: 12/06/19 Encounter Time: 09:30 Subjective: Patient was seen and examined in bed. She feels a little better than the day before. Chest is still sore in the region of surgery. She is not coughing, denies fever or shortness of breath when she is lying on - Objective Vital Signs & Weight: Vital Signs (12 hours) Temp Pulse Pulse Resp BP BP BP 12/06/19 14:36 101 H 14 12/06/19 11:58 98.9 F 100 H 126/58 L 12/06/19 09:27 95 123/61 125/58 L 12/06/19 07:35 98.5 F 76 20 106/62 12/06/19 04:00 98.6 F 80 18 117/53 L 12/06/19 03:35 Pulse Ox Pulse Ox Pulse Ox 12/06/19 14:36 12/06/19 11:58 93 L 12/06/19 09:27 88 L 96 12/06/19 07:35 94 L 12/06/19 04:00 96 12/06/19 03:35 96 Weight Weight 189 lb 3.2 oz I&O: 12/05/19 12/06/19 12/07/19 06:59 06:59 06:59 Intake Total 480 Output Total 1000 Balance -520 Result Diagrams: 12/06/19 04:34 12/06/19 04:34 Additional Labs: Accuchecks 12/06/19 12/05/19 11:01 21:01 POC Glucose 180 H 194 H Hospitalist ROS - Review of Systems Constitutional: reports: weakness. denies: fever, sweats Cardiovascular: reports: chest pain. denies: palpitations, orthopnea, paroxysmal noc. dyspnea Gastrointestinal: denies: nausea, vomiting, abdominal pain, diarrhea Genitourinary: denies: dysuria, incontinence - Medication Medications: Active Medications Generic Name Dose Route Start Last Admin Trade Name Freq PRN Reason Stop Dose Admin Albuterol/Ipratropium 3 ml 12/05/19 22:30 12/06/19 14:36 Duoneb NEB 3 ml [id number] WOOD Administration Aspirin 81 mg 12/06/19 09:00 12/06/19 09:15 Ecotrin PO 81 mg DAILY WOOD Administration Clopidogrel Bisulfate 75 mg 12/06/19 09:00 12/06/19 09:15 Plavix PO 75 mg DAILY WOOD Administration Ezetimibe 10 mg 12/06/19 09:00 12/06/19 09:15 Zetia PO 10 mg DAILY WOOD Administration Furosemide 40 mg 12/06/19 09:00 12/06/19 09:16 Lasix SLOW IVP 40 mg DAILY WOOD Administration Heparin Sodium (Porcine) 5,000 units 12/05/19 21:00 12/06/19 09:15 Heparin SC 5,000 units BID WOOD Administration Cefepime HCl 2 gm/ Sodium 100 mls @ 200 mls/hr 12/06/19 05:00 12/06/19 04:51 Chloride IVPB 100 mls 0500,1700 WOOD Administration Insulin Human Lispro 0 units 12/05/19 20:04 12/06/19 11:55 Humalog SC 2 unit .MILD SLIDING SCALE PRN Administration Mild Correctional Scale Nebivolol 5 mg 12/06/19 09:00 12/06/19 09:50 Bystolic PO Not Given DAILY WOOD - Exam General Appearance: awake alert Eye: PERRL, anicteric sclera Neck: no JVD, no lymphadenopathy Heart: RRR, no murmur, no gallops, normal peripheral pulses Respiratory: no wheezes, no ronchi Gastrointestinal: soft, non-tender, normal bowel sounds Extremities: no cyanosis, no edema Hosp A/P - Plan 74-year-old female patient admitted overnight on account of dyspnea fatigability with concerns for left lower lobe pneumonia and possible heart failure status post CABG. She feels much better today and currently on antibiotics for community-acquired pneumonia with high risk for resistant to Cardizem. Left lower lobe pneumonia Currently on vancomycin and Zosyn Leukocytosis improved from 14.1-11.1 We will continue treatment with antibiotics We will consult ID for antibiotic management given possibility of alternate diagnosis. Possible acute heart failure. Left pleural effusion status post recent CABG and carotid artery disease. Continue on aspirin, statins and beta-blockers for now Given the recent CABG operationcardiology consulted for their evaluation. Continue monitoring on telemetry. Coronary disease status post CABG. CABG done about a week ago patient still has sternotomy wound pain. Wound is clean Continue monitoring. Poor social situation Case management and physical therapy consulted VTE prophylaxisheparin
[2019-12-06] MEDS ORDERED: Vancomycin 1 GM in Premix Bag 1 BAG IVPB SCH (18:00)
--- NOTE | 2019-12-06 20:16 | CON ---
DATE OF CONSULTATION: 12/06/2019 REASON FOR CONSULTATION: Possible pneumonia following bypass graft surgery. HISTORY OF PRESENT ILLNESS: A 74-year-old with history of type 2 diabetes, reported COPD on inhalers and a recent coronary artery bypass graft surgery x2 vessels just a few days ago. The patient was discharged on Friday the . The patient told me that she was concerned that she may not be ready for discharge, particularly concerned about the possibility of pneumonia. She was discharged home and she lives with her disabled , who has ALS and some element of dementia as well and she at home has a pulse oximetry. She measures it regularly her oximetry even before she was admitted for the bypass graft surgery. Her baseline oximetry reads around 90% or 91%, depending on her activity level, sometimes goes down to the higher 80s, so she became concerned with her oximetry three readings and came back to the hospital for re-evaluation. She came back on the and came through the emergency room with worsening dyspnea, did not have any fever, no cough, a little bit of what she describes as cramps in the right side of her chest, upper abdomen. No headaches. No sore throat, odynophagia, or dysphagia. No back pain. No abdominal pain or diarrhea. No genitourinary symptoms. No joint symptoms. No problems with the sternotomy site. PAST MEDICAL HISTORY: Type 2 diabetes, COPD, hypothyroidism, coronary artery disease, bypass graft surgery, hypertension, hyperlipidemia, bilateral total knee replacements, cholecystectomy, meningioma, and fractures in shoulder and arm. ALLERGIES: MORPHINE AND FENTANYL. FAMILY HISTORY: Coronary artery disease. SOCIAL HISTORY: [place] her , who has ALS. Never smoked in her life. CURRENT MEDICATIONS: Include; 1. Lipitor. 2. Cefepime. 3. Plavix. 4. Lasix. 5. Porcine. 6. Insulin. 7. Vancomycin. PHYSICAL EXAMINATION: VITAL SIGNS: T-max 98.9, blood pressure 126/58, pulse 100, respirations 20, and O2 saturation ranging from 89 to 95 depending on her activity level in the room. She is receiving a nasal cannula O2 of 1 to 2 L. SKIN: Sternotomy site is normal in appearance. No inflammatory changes or drainage. No tenderness. She has an area of bruising in the medial aspect of the left thigh at right around the site of the saphenectomy donor site. No inflammatory changes noted. Peripheral IV access. She is voiding in the toilet. No lymphadenopathy. HEENT: Ocular movements conjugate. Oral cavity normal. NECK: Supple. LUNGS: With faint crackles particularly in the left base. No wheezing. HEART: S1 and S2. Regular rate. No S3 or S4. ABDOMEN: Soft, not distended or tender. No ascites. No bladder distention. EXTREMITIES: No joint inflammatory activity. Trace edema in the lower extremities. Pulses 1+ in dorsalis pedis. NEURO: Nonfocal. Just problems with recollection. Speech appears to be normal. She has difficulty in finding words sometimes. She is oriented. LABORATORY DATA: White cell count 14,000 now is 11.9, hemoglobin 8.8, platelets 510 and 491, neutrophils 62%, 3% bands, and monocytes were increased. Creatinine was 1.24 and 1.11. AST was 13, bilirubin 0.4, ALT 8, and alkaline phosphatase 99. BNP was a little bit high at 126. Albumin 3.5. The patient had a chest x-ray showed elevation of left hemidiaphragm with adjacent pleural fluid or atelectasis and had a CT angiogram, which showed no evidence of pulmonary embolism and the left basilar subsegmental atelectasis, and some areas of ground-glass opacity interstitial thickening upper lobes. ASSESSMENT: Type 2 diabetes, COPD, coronary artery disease, recent bypass graft surgery with recent discharge, readmission just 1 or 2 days after discharge with symptoms of dyspnea. DISCUSSION: The patient has this findings in the CT of chest, which are more likely new accounts representative of atelectasis than true inflammatory process with pneumonia. We will go ahead and check procalcitonin and procalcitonin is normal. Would discontinue antimicrobial therapy. Focus on the respiratory therapy and rehabilitation. Part of her issue is that she has a difficult situation at home with a disabled , who has some dementia. Mobility impaired and she had a hard time in adapting after discharge from the hospital, having to take care of her activities of daily living. Job ID: [id number]
[2019-12-06] MEDS ORDERED: Atorvastatin Calcium 40 MG TAB PO SCH (21:00)
[2019-12-07] MEDS: Acetaminophen 325 MG TAB PO PRN ×2 (03:19→13:40)
[2019-12-07] MEDS: Cefepime 2 GM in Sodium Chloride 0.9% 100 ML IVPB SCH (04:28)
[2019-12-07] MEDS: HumaLOG 300 UNITS/3 ML VIAL SC PRN ×3 (05:58→17:32)
[2019-12-07] MEDS: Aspirin 81 mg Enteric Coated Tablet PO SCH ×2 (08:43→08:45)
[2019-12-07] MEDS: Clopidogrel Bisulfate 75 MG TAB PO SCH (08:44)
[2019-12-07] MEDS: Furosemide 40 MG/4 ML VIAL SLOW IVP SCH (08:44)
[2019-12-07] MEDS: Nebivolol HCl 5 MG TAB PO SCH (08:44)
[2019-12-07] MEDS: Ezetimibe 10 MG TAB PO SCH (08:44)
[2019-12-07] MEDS: Heparin 5,000 UNITS/ML VIAL SC SCH (08:45)
[2019-12-07 10:58] LABS: #Basophils 0.1 thou/uL (0.0-0.2); #Eosinphils 0.5 thou/uL (0.0-0.7); #Lymphocytes 1.7 thou/uL (1.20-3.40); #Monocytes 1.3 thou/uL (0.11-0.59); #Neutrophils 8.3 thou/uL (1.40-6.50); %Basophils 0.4 % (0.0-1.0); %Eosinophils 4.3 % (0.0-10.0); %Monocytes 11.1 % (0.0-10.0); %Neutrophils 70.2 % (42.0-75.0); Hemoglobin 9.2 g/dL (12.0-16.0); Mean Corpuscular HGB CONC 32.6 g/dL (32.0-36.0); Mean Corpuscular Hemoglobin 30.7 pg (27.0-31.0); Mean Corpuscular Volume 94.4 fL (78.0-98.0); Mean Platelet Volume 7.6 fL (7.4-10.4); Platelet Count 566 thou/uL (130-400); RBC Distribution Width 14.2 % (11.5-14.5); Red Blood Cell (RBC) Count 3.01 mill/uL (4.20-5.40); White Blood Cell (WBC) Count 11.9 thou/uL (4.8-10.8)
[2019-12-07 11:01] LABS: Anion Gap 16 mmol/L (10-20); BUN (Urea Nitrogen) 19 mg/dL (9.8-20.1); Calc. Creatinine Clearance 69 mL/min (70-130); Calcium 9.3 mg/dL (7.8-10.44); Carbon Dioxide 30 mmol/L (23-31); Chloride 94 mmol/L (98-107); Estimated GFR-MDRD 56; Glucose 227 mg/dL (83-110); Sodium 136 mmol/L (136-145)
[2019-12-07 16:17] VITALS: BP 109/55; TEMP 99.1
--- NOTE | 2019-12-07 17:08 | PDOC.CPN ---
- Subjective Date: 12/07/19 Time: 17:07 Interval history: She is doing much better. - Review of Systems General: denies: fever/chills, weight/appetite/sleep changes, night sweats, fatigue Respiratory: denies: cough, congestion, shortness of breath, exercise intolerance Cardiovascular: denies: chest pain, palpitation, edema, paroxysmal nocturnal dyspnea, orthopnea Gastrointestinal: denies: nausea, vomiting, diarrhea, constipation, abd pain, GI bleeding Musculoskeletal: denies: pain, tenderness, stiffness, swelling, arthritis/ arthralgias Neurological: denies: numbness, syncope, seizure, weakness - Objective Allergies/Adverse Reactions: Allergies Allergy/AdvReac Type Severity Reaction Status Date / Time morphine Allergy Intermediate ITCHING Verified 12/05/19 20:29 AUDIE Inhibitors Allergy COUGH Verified 12/05/19 20:29 fentanyl AdvReac Severe GIVEN A Verified 12/05/19 20:29 HIGH DOSE AND HEART STOPPPED Visit Medications: Current Medications Acetaminophen (Tylenol) 650 mg PO Q4H PRN PRN Reason: Headache/Fever/Mild Pain (1-3) Last Admin: 12/07/19 13:40 Dose: 650 mg Albuterol/Ipratropium (Duoneb) 3 ml NEB [id number] [facility] Last Admin: 12/07/19 14:27 Dose: 3 ml Aspirin (Ecotrin) 81 mg PO DAILY [facility] Last Admin: 12/07/19 08:45 Dose: 81 mg Atorvastatin Calcium (Lipitor) 40 mg PO HS [facility] Last Admin: 12/06/19 22:11 Dose: Not Given Clopidogrel Bisulfate (Plavix) 75 mg PO DAILY [facility] Last Admin: 12/07/19 08:44 Dose: 75 mg Dextrose/Water (Dextrose 50%) 25 gm SLOW IVP PRN PRN PRN Reason: Hypoglycemia Ezetimibe (Zetia) 10 mg PO DAILY [facility] Last Admin: 12/07/19 08:44 Dose: 10 mg Furosemide (Lasix) 40 mg SLOW IVP DAILY [facility] Last Admin: 12/07/19 08:44 Dose: 40 mg Glucagon (Glucagon) 1 mg IM PRN PRN PRN Reason: Hypoglycemia Heparin Sodium (Porcine) (Heparin) 5,000 units SC BID [facility] Last Admin: 12/07/19 08:45 Dose: 5,000 units Dextrose/Water (D5w) 1,000 mls @ 0 mls/hr IV .Q0M PRN PRN Reason: Hypoglycemia Insulin Human Lispro (Humalog) 0 units SC .MILD SLIDING SCALE PRN PRN Reason: Mild Correctional Scale Last Admin: 12/07/19 12:44 Dose: 3 unit Nebivolol (Bystolic) 5 mg PO DAILY WOOD Last Admin: 12/07/19 08:44 Dose: 5 mg Vital Signs & Weight: Vital Signs Temp Pulse Pulse Pulse Resp BP BP 12/07/19 16:16 99.1 F 93 17 12/07/19 14:42 101 H 107/60 12/07/19 14:27 95 16 12/07/19 11:25 98.3 F 99 17 12/07/19 10:44 99 16 12/07/19 10:01 97 118/62 12/07/19 08:51 98.8 F 99 20 12/07/19 06:58 12/07/19 06:56 65 16 BP Pulse Ox Pulse Ox Pulse Ox 12/07/19 16:16 109/55 L 94 L 12/07/19 14:42 96 95 12/07/19 14:27 94 L 12/07/19 11:25 118/63 95 12/07/19 10:44 92 L 12/07/19 10:01 12/07/19 08:51 122/57 L 94 L 12/07/19 06:58 91 L 12/07/19 06:56 91 L Weight 185 lb 3 oz - Physical Exam General: alert & oriented x3 HEENT: mucus membranes moist Neck: supple neck Cardiac: regular rate and rhythm Lungs: normal breath sounds Neuro: grossly intact Abdomen: active bowel sounds Extremities: no edema Skin: clear - Labs Result Diagrams: 12/07/19 10:34 12/07/19 10:34 Troponin/CKMB Troponin I Less than 0.010 ng/mL (< 0.028) 12/05/19 23:10 - Telemetry Sinus rhythms and dysrhythmias: sinus rhythm - Assessment/Plan Assessment/Plan: 1. S/P CABG 2. Acute on chronic diastolic CHF 3. Atelectasi 4. Deconditioning. PLAN: - Agree with placement to SNF with PT.
--- NOTE | 2019-12-08 13:14 | PQF ---
CLINICAL DOCUMENTATION CLARIFICATION FORM: Dear Dr. Young Date: 12/08/19 Please exercise your independent, professional judgment in responding to the clarification form. Clinical indicators are provided on the bottom of this form for your review. Please check appropriate box(es): HEART FAILURE: A. ACUITY [ ] Acute [ x ] Acute on Chronic [ ] Chronic B. TYPE: [ ] Systolic / HFrEF [ x ] Diastolic / HFpEF [ ] Combined Systolic / Diastolic [ ] Hypertensive Heart and Kidney disease [ ] Hypertensive Heart Disease [ ] Hypertensive Kidney Disease [ ] Other diagnosis [ ] Unable to determine In addition, please specify: Present on Admission (POA): [ ] Yes [ ] No [ ] Unable to determine For continuity of documentation, please document condition throughout progress notes and discharge summary. Thank You. To be completed by CDI/Coding staff for physician review: PN 12/05 (AFFRAM): "POSSIBLE ACUTE HEART FAILURE" CARDIOLOGY NOTE (12/06): "ACUTE ON CHRONIC DIASTOLIC CHF" BNP 12/04: 126.9 RISKS: RECENT CABG (PN 12/05- [facility]FF[facility]) H/O HTN (H&P) PLEURAL EFFUSION (H&P) TREATMENT: CARDIOLOGY CONSULT IV LASIX (ER / 12/05-12/06) TELEMETRY MONITORING CDS Signature: Stefani Cunningham RN Phone #: [phone] Date: 12/08/19 MARCUS
--- NOTE | 2019-12-08 13:29 | PQF ---
CLINICAL DOCUMENTATION CLARIFICATION FORM: Dear Dr. Young Date: 12/08/19 Please exercise your independent, professional judgment in responding to the clarification form. Clinical indicators are provided on the bottom of this form for your review. Please check appropriate box(es): Conflicting documentation was noted in the Medical Record; please clarify if patient is being treated/monitored for: [ ] PNEUMONIA [ x ] ATELECTASIS [ ] Other diagnosis [ ] Unable to determine In addition, please specify: Present on Admission (POA): [x ] Yes [ ] No [ ] Unable to determine For continuity of documentation, please document condition throughout progress notes and discharge summary. Thank You. PN 12/05 ([facility]FF[facility]): "LEFT LOWER LOBE PNEUMONIA" BEATRIZ PN 12/05: "THE PATIENT HAS THIS FINDINGS IN THE CT OF CHEST, WHICH ARE MORE LIKELY GAS SINGER OF ATELECTASIS THAN TRUE INFLAMMATORY PROCESS WITH PNEUMONIA." WBC 12/04: 14.1 CARDIOLOGY NOTE 12/06: "ATELECTASIS" RISKS: PATIENT REPORT OF DYSPNEA AND FRAGIBILITY (PN 12/05 - [facility]) RECENT CABG (PN 12/05: [facility]) TREATMENT: ID CONSULT IV VANCOMYCIN (ER - 12/05) IV CEFEPIME (ER - 12/06) CHEST XRAY 12/04 CDS Signature: Stefani Cunningham RN Phone #: Date: 12/08/19 This is a permanent part of the Medical Record [facility]
--- NOTE | 2019-12-09 13:34 | DIS ---
DATE OF ADMISSION: 12/05/2019 DATE OF DISCHARGE: 12/07/2019 DISCHARGE DIAGNOSES: 1. Acute on chronic diastolic heart failure. 2. Left lower lobe pneumonia, ruled out. 3. Coronary artery disease, status post coronary artery bypass graft. HOSPITAL COURSE: This is a 74-year-old female patient with a history of diabetes mellitus, coronary artery disease status post recent CABG, discharged 2 days prior to presentation, who presents with worsening dyspnea and easy fatigability after discharge. Initial imaging was concerning for left lower lobe pneumonia versus atelectasis and she was started on vancomycin and Zosyn. She also had a slight left pleural effusion. She was hypoxemic, requiring 2 L of oxygen. ID was consulted and evaluated and was noted to have possible atelectasis rather than pneumonia. Antibiotics were discontinued. Cardiology was consulted and agreed with diuresis and discharged to SNF for PT on account of deconditioning. ADMISSION EXAMINATION: GENERAL: The patient is in no acute distress. RESPIRATORY: Air entry adequate bilaterally. No rhonchi or rales. CARDIOVASCULAR: S1 and S2 present. No murmurs, gallops or rubs. Sternotomy wound clean. ABDOMEN: Full, soft, bowel sounds present and normal. EXTREMITIES: No peripheral edema. CONSULTATIONS: 1. Cardiology, Dr. Starr. 2. ID, Dr. Toure. DISPOSITION: Discharged to SNF on 2 L oxygen. DISCHARGE CONDITION: Stable. Job ID: [id number]
--- NOTE | 2019-12-10 07:19 | PQF ---
Dear : Neeraj Young Date 12/10/2019 Please exercise your independent, professional judgment in responding to the clarification form. Clinical indicators are provided on the bottom of this form for your review Can you please further clarify if CHF exacerbation is a complication of Recent CABG of not? Please check appropriate box(es): [ ] CHF exacerbation is a complication of recent CABG [ ] CHF exacerbation is Not a complication of recent CABG [ ] Other diagnosis please specify [ x ] Unable to determine In addition, please specify: Present on Admission (POA): [ x ] Yes [ ] No [ ] Unable to determine Physician Signature: Date/Time: For continuity of documentation, please document condition throughout progress notes and discharge summary. Thank You. To be completed by CDI/Coding staff for physician review: Present Clinical Indicators - Signs / Symptoms / Labs Results and Location in Medical Record [ x ] SOB H and P pg.1 [ x ] Discharged 2 days ago after her CABG procedure H and P pg.1 [ x ] CHF exacerbation, EF on 11/26/2019 on cardiac cath was 55% H and P pg.3 [ x ] She did have episodes of fever and then eventually her fever got down. This was thought to be related to just post op fever Consult Dr. Starr pg.1 [ x ] Acute on chronic diastolic CHF Consult Dr. Starr pg.3 [ x ] Concerns for left lower lobe pneumonia and possible hearth failure status post CABG Hospitalist PN pg.4 [ x ] Left pleural effusion s/p recent CABG Hospitalist PN pg.4 Present Risk Factors Results and Location in Medical Record [ x ] s/p CABG H and P pg.1 [ x ] atelectasis Cardiology PN pg.4 [ x ] CAD H and P pg.2 [ x ] HTN H and P pg.2 [ x ] DM H and P pg.2 [ x ] Obese H and P pg.4 [ x ] MARCELLUS H and P pg.4 Present Treatments Results and Location in Medical Record [ x ] Infectious Consult 12/05 Dr. Toure [ x ] Cardiology Consult 12/05 Dr. Starr [ x ] Chest X ray 12/04 [ x ] Chest/ Thorax CTA 12/04 [ x ] Lasix 40 mg IV MAR [ x ] Vancomycin 1.5gm IV MAR [ x ] Cefepime 2g IV MAR [ x ] DuoNeb 3ml NEB MAR [ x ] IV Fluids MAR CDS/Rail Walker Signature: Vickey Sanchez Phone #: ext [phone] Date This is a permanent part of the Medical Record [facility]
== END 2019-12-07 18:06 | disposition swing bed (61) | DRG 291 ==
LOC: ERS 16:04 → 2NO 18:33
PROVIDERS: ADMIT Student in an Organized Health Care Education/Training Program; ATTEND Student in an Organized Health Care Education/Training Program
DX: I13.0 Hypertensive heart and chronic kidney disease with heart failure and stage 1 through stage 4 chronic kidney disease, or unspecified chronic kidney disease (principal); I50.33 Acute on chronic diastolic (congestive) heart failure; J98.11 Atelectasis; Z20.828 Contact with and (suspected) exposure to other viral communicable diseases; E11.22 Type 2 diabetes mellitus with diabetic chronic kidney disease; K21.9 Gastro-esophageal reflux disease without esophagitis; E11.51 Type 2 diabetes mellitus with diabetic peripheral angiopathy without gangrene; N18.9 Chronic kidney disease, unspecified; G47.33 Obstructive sleep apnea (adult) (pediatric); E03.9 Hypothyroidism, unspecified; Z96.653 Presence of artificial knee joint, bilateral; I25.10 Atherosclerotic heart disease of native coronary artery without angina pectoris; Z95.1 Presence of aortocoronary bypass graft; Z88.8 Allergy status to other drugs, medicaments and biological substances; Z79.899 Other long term (current) drug therapy; Z79.51 Long term (current) use of inhaled steroids; Z90.49 Acquired absence of other specified parts of digestive tract; Z79.01 Long term (current) use of anticoagulants; Z90.710 Acquired absence of both cervix and uterus; Z88.5 Allergy status to narcotic agent; J44.9 Chronic obstructive pulmonary disease, unspecified
CPT/HCPCS: 36415; 36416; 71045; 71275; 80048; 80053; 82728; 83540; 83550; 83735; 83880; 84145; 84484; 85007; 85025; 85027; 85610; 93005; 94640; 96365; 96367; 96375; 97139; J0692; J1644; J1940; J3370; J3490; J7620; Q9967; U0002

== ENCOUNTER 2021-01-26 02:18 | Inpatient (IN) | payer MEDICARE, OTHER ==
[2021-01-26] MEDS ORDERED: Nitroglycerin 2% Ointment 1 INCH/1 GM Packet ONE (03:22)
[2021-01-26 03:29] LABS: #Basophils 0.1 thou/uL (0.0-0.2); #Eosinphils 0.1 thou/uL (0.0-0.7); #Lymphocytes 1.5 thou/uL (1.20-3.40); #Monocytes 0.9 thou/uL (0.11-0.59); #Neutrophils 5.5 thou/uL (1.40-6.50); %Basophils 0.9 % (0.0-1.0); %Eosinophils 1.3 % (0.0-10.0); %Monocytes 11.5 % (0.0-10.0); %Neutrophils 68.3 % (42.0-75.0); Hemoglobin 13.4 g/dL (12.0-16.0); Mean Corpuscular HGB CONC 34.3 g/dL (32.0-36.0); Mean Corpuscular Hemoglobin 33.4 pg (27.0-31.0); Mean Corpuscular Volume 97.6 fL (78.0-98.0); Mean Platelet Volume 9.4 fL (7.4-10.4); Platelet Count 222 thou/uL (130-400); RBC Distribution Width 12.4 % (11.5-14.5)
[2021-01-26 03:40] LABS: ALT (SGPT) 14 U/L (8-55); AST (SGOT) 22 U/L (5-34); Albumin 3.7 g/dL (3.4-4.8); Alkaline Phosphatase 136 U/L (40-110); Anion Gap 15 mmol/L (10-20); BUN (Urea Nitrogen) 17 mg/dL (9.8-20.1); Bilirubin, Total 0.3 mg/dL (0.2-1.2); Calc. Creatinine Clearance 0 mL/min (70-130); Calcium 9.2 mg/dL (7.8-10.44); Carbon Dioxide 23 mmol/L (23-31); Chloride 109 mmol/L (98-107); Globulin 2.7 g/dL (2.4-3.5); Glucose 125 mg/dL (83-110); Protein, Total 6.4 g/dL (5.8-8.1); Sodium 142 mmol/L (136-145)
[2021-01-26 07:00] LABS: SARS-CoV-2 NAA Rapid Test Not Detected (NotDetected)
[2021-01-26 07:12] LABS: Troponin I 0.037 ng/mL (< 0.028)
[2021-01-26] MEDS ORDERED: Nitroglycerin 0.4 MG TAB (25 Tab Bottle) SL PRN (07:47)
[2021-01-26] MEDS ORDERED: Acetaminophen 325 MG TAB PO PRN (07:50)
[2021-01-26] MEDS ORDERED: Ondansetron ODT 4 MG TAB PO PRN (07:50)
[2021-01-26] MEDS ORDERED: Ondansetron PF 4 MG/2 ML Vial IVP PRN (07:50)
[2021-01-26] MEDS ORDERED: Dextrose 50% Abboject 50 ML SYRINGE SLOW IVP PRN (07:51)
[2021-01-26] MEDS ORDERED: Dextrose 5% in Water 1,000 ML IV PRN (07:51)
[2021-01-26] MEDS ORDERED: HumaLOG 300 UNITS/3 ML VIAL SC PRN ×2 (07:51)
[2021-01-26] MEDS: Aspirin Chewable 81 MG TAB PO SCH (07:59)
[2021-01-26] MEDS ORDERED: Levothyroxine Sodium 50 MCG TAB PO SCH (08:00)
[2021-01-26] MEDS ORDERED: Furosemide 40 MG/4 ML VIAL SLOW IVP SCH (08:00)
[2021-01-26] MEDS ORDERED: Aspirin Chewable 81 MG TAB ONE (08:03)
[2021-01-26] MEDS ORDERED: Furosemide 20 MG/2 ML VIAL ONE (08:03)
[2021-01-26] MEDS ORDERED: hydrALAZINE 20 MG/ML VIAL SLOW IVP PRN (08:15)
[2021-01-26 09:38] LABS: Magnesium 1.6 mg/dL (1.6-2.6)
[2021-01-26] MEDS: Clopidogrel Bisulfate 75 MG TAB PO SCH (10:01)
[2021-01-26] MEDS: Ezetimibe 10 MG TAB PO SCH (10:01)
[2021-01-26 11:29] LABS: Troponin I 0.048 ng/mL (< 0.028)
[2021-01-26] MEDS ORDERED: Magnesium 2 GM/50 ML 2 GM in Premix Bag 1 BAG IVPB SCH (12:15)
[2021-01-26 12:49] VITALS: BMI 31.8
[2021-01-26] MEDS: Nitroglycerin 2% Ointment 1 INCH/1 GM Packet TOP SCH ×2 (13:13→21:05)
[2021-01-26] MEDS: Nebivolol HCl 5 MG TAB PO SCH (21:04)
[2021-01-26] MEDS: Gabapentin 300 MG CAP PO SCH (21:04)
[2021-01-27] MEDS: Levothyroxine Sodium 50 MCG TAB PO SCH (05:54)
[2021-01-27] MEDS: Nitroglycerin 2% Ointment 1 INCH/1 GM Packet TOP SCH (05:54)
[2021-01-27 05:57] LABS: #Basophils 0.1 thou/uL (0.0-0.2); #Eosinphils 0.2 thou/uL (0.0-0.7); #Lymphocytes 2.2 thou/uL (1.20-3.40); #Neutrophils 4.6 thou/uL (1.40-6.50); %Basophils 1.2 % (0.0-1.0); %Eosinophils 2.5 % (0.0-10.0); %Lymphocytes 27.5 % (21.0-51.0); %Monocytes 12.3 % (0.0-10.0); %Neutrophils 56.6 % (42.0-75.0); Hemoglobin 13.4 g/dL (12.0-16.0); Mean Corpuscular HGB CONC 34.5 g/dL (32.0-36.0); Mean Corpuscular Hemoglobin 33.1 pg (27.0-31.0); Mean Corpuscular Volume 95.9 fL (78.0-98.0); Mean Platelet Volume 8.5 fL (7.4-10.4); Platelet Count 306 thou/uL (130-400); RBC Distribution Width 12.2 % (11.5-14.5); Red Blood Cell (RBC) Count 4.07 mill/uL (4.20-5.40); White Blood Cell (WBC) Count 8.1 thou/uL (4.8-10.8)
[2021-01-27 06:18] LABS: Anion Gap 12 mmol/L (10-20); BUN (Urea Nitrogen) 19 mg/dL (9.8-20.1); Calc. Creatinine Clearance 81 mL/min (70-130); Calcium 9.3 mg/dL (7.8-10.44); Carbon Dioxide 26 mmol/L (23-31); Chloride 104 mmol/L (98-107); Cholesterol 185 mg/dl (< 200 Desired); Glucose 108 mg/dL (83-110); HDL Cholesterol 37 mg/dL (>60 Neg Risk); LDL Cholesterol, Calculated 120 mg/dL; Magnesium 1.8 mg/dL (1.6-2.6); Potassium 4.2 mmol/L (3.5-5.1); Sodium 138 mmol/L (136-145); Triglycerides 141 mg/dL (Less than 150)
[2021-01-27] MEDS ORDERED: Magnesium 2 GM/50 ML 2 GM in Premix Bag 1 BAG IVPB SCH (09:30)
[2021-01-27] MEDS ORDERED: FLU VACC QS2021-22(65YR UP)/PF 240 MCG/0.7 ML SYRINGE IM ONE (11:30)
[2021-01-27] MEDS: Aspirin Chewable 81 MG TAB PO SCH (12:48)
[2021-01-27] MEDS: Ezetimibe 10 MG TAB PO SCH (12:49)
[2021-01-27] MEDS: Clopidogrel Bisulfate 75 MG TAB PO SCH (12:50)
[2021-01-27 17:30] LABS: Troponin I Less than 0.010 ng/mL (< 0.028)
[2021-01-27] MEDS ORDERED: Gabapentin 300 MG CAP PO SCH (21:00)
[2021-01-27] MEDS: Gabapentin 300 MG CAP PO SCH (21:55)
[2021-01-27] MEDS: Nebivolol HCl 5 MG TAB PO SCH (21:55)
[2021-01-27] MEDS: Heparin 5,000 UNITS/ML VIAL SC SCH (21:58)
[2021-01-28] MEDS: Levothyroxine Sodium 50 MCG TAB PO SCH (07:22)
[2021-01-28] MEDS: Clopidogrel Bisulfate 75 MG TAB PO SCH (12:22)
[2021-01-28] MEDS: Aspirin Chewable 81 MG TAB PO SCH (12:22)
[2021-01-28] MEDS: Ezetimibe 10 MG TAB PO SCH (12:23)
[2021-01-28] MEDS: Heparin 5,000 UNITS/ML VIAL SC SCH (12:27)
[2021-01-28] MEDS ORDERED: Regadenoson 0.4 MG/5 ML SYRINGE ONE (12:52)
[2021-01-28 16:27] VITALS: BP 122/56; TEMP 98.3
== END 2021-01-28 17:40 | disposition home or self-care (01) | DRG 291 ==
LOC: ERS 02:18 → ERHOLD 04:56 → 2SW 09:08 → OBSVTOIN 01-28 11:08
PROVIDERS: ADMIT Internal Medicine; ATTEND Internal Medicine
DX: I13.0 Hypertensive heart and chronic kidney disease with heart failure and stage 1 through stage 4 chronic kidney disease, or unspecified chronic kidney disease (principal); I50.33 Acute on chronic diastolic (congestive) heart failure; I25.10 Atherosclerotic heart disease of native coronary artery without angina pectoris; E11.51 Type 2 diabetes mellitus with diabetic peripheral angiopathy without gangrene; Z20.822 Contact with and (suspected) exposure to COVID-19; E03.9 Hypothyroidism, unspecified; I16.0 Hypertensive urgency; E66.9 Obesity, unspecified; J44.9 Chronic obstructive pulmonary disease, unspecified; K21.9 Gastro-esophageal reflux disease without esophagitis; G25.81 Restless legs syndrome; E11.22 Type 2 diabetes mellitus with diabetic chronic kidney disease; E83.42 Hypomagnesemia; I08.1 Rheumatic disorders of both mitral and tricuspid valves; E78.2 Mixed hyperlipidemia; G89.4 Chronic pain syndrome; N18.2 Chronic kidney disease, stage 2 (mild); Z91.14 Patient's other noncompliance with medication regimen; Z88.5 Allergy status to narcotic agent; Z88.8 Allergy status to other drugs, medicaments and biological substances; Z79.82 Long term (current) use of aspirin; Z79.899 Other long term (current) drug therapy; Z95.1 Presence of aortocoronary bypass graft; I25.2 Old myocardial infarction; Z90.49 Acquired absence of other specified parts of digestive tract; Z90.710 Acquired absence of both cervix and uterus; Z68.31 Body mass index [BMI] 31.0-31.9, adult; Z95.5 Presence of coronary angioplasty implant and graft
CPT/HCPCS: 36415; 36416; 71045; 78452; 80048; 80053; 80061; 83735; 83880; 84443; 84484; 85025; 90471; 90662; 93005; 93017; 93306; 96374; 96375; 96376; A9500; G0008; G0378; J1644; J1940; J2785; J3475; U0002